=== PATIENT | female | born 1980 | race Caucasian/White ===

== ENCOUNTER 2017-12-31 09:46 | Inpatient (IN) | payer MEDICAID, SELFPAY ==
[2017-12-31] VITALS (13 sets, daily range): BP systolic 121–163; BP diastolic 74–118; PULSE 88–138; RESP 15–20; TEMP 36.7–37.5; O2SAT 95–99; BMI 25.6; BMI 25.7; BMI 25.3
--- NOTE | 2017-12-31 10:06 | CT_ITS ---
STUDY: CT BRAIN WITHOUT CONTRAST REASON FOR EXAM: Female, 37 years old. Seizure. Drug and alcohol withdrawal. RADIATION DOSAGE (If Supplied By Facility): CTDIvol = ( 44.99 ) mGy, DLP = ( 779.24 ) mGycm TECHNIQUE: Transaxial CT imaging of the brain was performed without administration of intravenous contrast material. Individualized dose optimization techniques were used for this CT. COMPARISON: None. FINDINGS: Normal soft tissue structures. Normal calvarium. Normal size ventricles and extra-axial spaces for the patient's age. Normal white matter tracts of the cerebral hemispheres. Normal basal ganglia and thalami. Normal brainstem. Normal cerebellum. There is no intracranial hemorrhage. There are no findings of an acute ischemic infarction. Normal visualized paranasal sinuses. CT/Brain/Head without Contrast IMPRESSION: Normal unenhanced CT scan of the brain. Electronically Signed: Geo Gates MD at 10:52 EDT , Service support ,
--- NOTE | 2017-12-31 10:09 | CT_ITS ---
STUDY: CT FACIAL BONES WITHOUT CONTRAST REASON FOR EXAM: Female, 37 years old. Seizure. Alcohol withdrawal RADIATION DOSAGE (If Supplied By Facility): CTDIvol = ( 29.38 ) mGy, DLP = ( 547.46 ) mGycm TECHNIQUE: The patient was scanned in a multi detector CT scanner. Sagittal and coronal images were reconstructed. Individualized dose optimization techniques were used for this CT. COMPARISON: None. FINDINGS: Normal soft tissue structures. Normal orbital blanco and orbital contents. There is angulation of the inferior aspect of the nasal bone with fracture, series 601 image 71/138. Normal zygomatic arches. Normal mandible. Normal facial bones. Follow-up mucosal thickening of the paranasal sinuses. CT/Sinus/Facial Bone IMPRESSION: Nasal fracture. Electronically Signed: Geo Gates MD at 11:00 EDT , Service support ,
--- NOTE | 2017-12-31 10:09 | EKG12_ITS ---
Test Reason : [facility] Blood Pressure : / mmHG Vent. Rate : 125 BPM Atrial Rate : 125 BPM P-R Int : 140 ms QRS Dur : 076 ms QT Int : 306 ms P-R-T Axes : 062 051 049 degrees QTc Int : 441 ms Sinus tachycardia Otherwise normal ECG Confirmed by MAVERICK BAUER MD ([id number]), scientific editor ESTELA CRAFT ([id number] on 01/03/2018 2:02:55 PM Referred By: KAYLYNN NAPIER Confirmed By:MAVERICK BAUER MD
--- NOTE | 2017-12-31 10:10 | ED.VISSUMM ---
- ER Visit Summary Date of Service: 12/31/17 Chief Complaint: Detox from alcohol and benzodiazepines History of Present Illness: The patient is a 37 F who is requesting detox from alcohol and benzodiazepines. Patient states she drinks 1 bottle of wine and 10 beers per day. Patient states she takes Valium 5 mg 4 times daily. Patient states her last use was 2 hours ago for both. Patient feels shaky. Patient has some nausea. Patient admits to subjective fevers at home. Patient states she has had a seizure 2-3 days ago. Patient states she has a history of seizures. Patient has been through detox several times in the past. Patient states her last detox was approximately 1 year ago. Patient also states she has fallen 3 days ago and hit her nose. She is concerned over possible nasal fracture. Physical Examination: Vital signs are stable except for an elevated blood pressure 163/118. Patient is in no acute distress. Patient is afebrile here. Pupils are equal, round, and reactive to light bilaterally. Extraocular muscles are intact. There is some edema and ecchymosis across the bridge of the nose. There is no bony crepitance or step-off noted. There is no septal deviation or septal hematoma noted. Oral mucosa is pink and moist. Heart was regular rate and rhythm. Lungs are clear and equal bilaterally. There is good respiratory effort noted. Abdomen is soft. There is some mild diffuse tenderness. There is no rebound or guarding noted. Cranial nerves II through XII are intact. There are no focal motor or sensory deficits noted. Test Results: CBC, comprehensive metabolic profile, and urinalysis were obtained and were within normal limits with the exception of a mildly elevated AST of 65. Serum alcohol level was 310. Urine tox screen was positive for benzodiazepines and cannabinoids. CT scan of the brain was obtained was negative. CT scan of the facial bones was obtained and shows a nondisplaced nasal bone fracture. EKG showed a sinus tachycardia with a rate of 125. There are no acute ST or T-wave changes noted. There are no prior EKGs available for comparison. Emergency Department Course and Treatment: Patient was given IV fluids here. Patient was given a dose of Tylenol and 2 doses of Phenergan. [facility] was contacted was supposed to come to the emergency department for evaluation. Case was also discussed with Dr. Frey. He will admit the patient to his service. Disposition: Admit to hospital Impression: Alcohol dependence Benzodiazepine dependence Nasal bone fracture This note was generated with [employer] dictation software. It may contain incorrect words, spelling, and punctuation that were not noted in review of the chart prior to signing ED Disposition - Plan for ED Patient: Disposition: Acute Care Hospital [facility] Chief Complaint: Subst Abuse Diagnosis: Alcohol dependence, Benzodiazepine dependence, Nasal bone fracture
--- NOTE | 2017-12-31 10:21 | ED.DCSUM_ITS ---
- ER Visit Summary Date of Service: 12/31/17 Chief Complaint: Detox from alcohol and benzodiazepines History of Present Illness: The patient is a 37 F who is requesting detox from alcohol and benzodiazepines. Patient states she drinks 1 bottle of wine and 10 beers per day. Patient states she takes Valium 5 mg 4 times daily. Patient states her last use was 2 hours ago for both. Patient feels shaky. Patient has some nausea. Patient admits to subjective fevers at home. Patient states she has had a seizure 2-3 days ago. Patient states she has a history of seizures. Patient has been through detox several times in the past. Patient states her last detox was approximately 1 year ago. Patient also states she has fallen 3 days ago and hit her nose. She is concerned over possible nasal fracture. Physical Examination: Vital signs are stable except for an elevated blood pressure 163/118. Patient is in no acute distress. Patient is afebrile here. Pupils are equal, round, and reactive to light bilaterally. Extraocular muscles are intact. There is some edema and ecchymosis across the bridge of the nose. There is no bony crepitance or step-off noted. There is no septal deviation or septal hematoma noted. Oral mucosa is pink and moist. Heart was regular rate and rhythm. Lungs are clear and equal bilaterally. There is good respiratory effort noted. Abdomen is soft. There is some mild diffuse tenderness. There is no rebound or guarding noted. Cranial nerves II through XII are intact. There are no focal motor or sensory deficits noted. Test Results: CBC, comprehensive metabolic profile, and urinalysis were obtained and were within normal limits with the exception of a mildly elevated AST of 65. Serum alcohol level was 310. Urine tox screen was positive for benzodiazepines and cannabinoids. CT scan of the brain was obtained was negative. CT scan of the facial bones was obtained and shows a nondisplaced nasal bone fracture. EKG showed a sinus tachycardia with a rate of 125. There are no acute ST or T-wave changes noted. There are no prior EKGs available for comparison. Emergency Department Course and Treatment: Patient was given IV fluids here. Patient was given a dose of Tylenol and 2 doses of Phenergan. [facility] was contacted was supposed to come to the emergency department for evaluation. Case was also discussed with Dr. Frey. He will admit the patient to his service. Disposition: Admit to hospital Impression: Alcohol dependence Benzodiazepine dependence Nasal bone fracture This note was generated with [employer] dictation software. It may contain incorrect words, spelling, and punctuation that were not noted in review of the chart prior to signing ED Disposition - Plan for ED Patient: Disposition: Acute Care Hospital [facility] Chief Complaint: Subst Abuse Diagnosis: Alcohol dependence, Benzodiazepine dependence, Nasal bone fracture
[2017-12-31] MEDS: proMETHazine 25 MG/ML Syringe 6.25 MG IV ×2 (10:23→10:54)
[2017-12-31] MEDS: 0.9% Normal Saline 1,000 ML 1000 ML IV (10:23)
[2017-12-31 10:31] LABS: Absolute Lymphocyte Count 1.68 X10^3/ul (0.83-4.51); Basophil# 0.08 X10^3/uL; Basophil% 1.9 % (0-1); Eosinophil# 0.08 X10^3/uL; Eosinophils% 1.9 % (0-5); Hematocrit 41.1 % (37-47); Hemoglobin 14.3 g/dl (12.0-15.0); Lymphocyte # 1.68 X10^3/ul (4.0); Lymphocyte % 39.1 % (19-41); Mean Corp Hgb Conc 34.8 g/gl (32-36); Mean Corpuscular Hgb 30.1 pg (27.0-32.0); Mean Corpuscular Volume 86.5 fL (81-99); Mean Platelet Vol. 9.3 fl (6.2-12.0); Monocyte# 0.46 X10^3/uL; Monocyte% 10.7 % (0-10); Neutrophil % 46.4 % (47-70); POSITIVE COUNT NO; POSITIVE DIFFERENTIAL NO; POSITIVE MORPHOLOGY NO; Platelet Count 322 K/mm3 (150-450); RBC Distribution Width CV 14.9 % (11.6-14.6); RBC Distribution Width SD 47.2 fl (35.1-43.9); Red Blood Count 4.75 M/mm3 (4.2-5.4); White Blood Count 4.3 K/mm3 (4.4-11.0)
[2017-12-31 10:46] LABS: ALB/GLOB Ratio 0.9 RATIO (0.9-2.4); AST(SGOT) 65 U/L (15-37); Alanine Aminotransfer ALT/SGPT 47 U/L (13-56); Albumin, Serum 4.2 g/dL (3.2-5.0); Alkaline Phosphatase 61 U/L (45-117); Anion Gap 14 (5-15); BUN 5 mg/dL (7-18); BUN/Creat Ratio 5.6 RATIO (10-20); Calcium,Total 8.7 mg/dL (8.5-10.1); Chloride 103 mmol/L (98-107); Creatinine, Serum 0.88 mg/dL (0.55-1.02); EST Glomerular Filtration Rate 76 mL/min (>60); Est Glom Filt Rate - Afr Amer 92 mL/min (>60); Estimated Creatinine Clearance 72.41 ml/min; Globulin 4.5 g/dL (2.2-4.2); Glucose 113 mg/dL (74-106); Protein, Total 8.7 g/dL (6.4-8.2); Sodium Level 139 mmol/L (136-145)
[2017-12-31 11:28] LABS: Squamous Epithelial Cells - UA 0 SEEN /hpf (5-10)
[2017-12-31 11:31] LABS: Color, Urine Yellow (Yellow); Glucose, Dipstick Normal (Normal); Ketone-Dipstick 15 mg/dl (Negative); Leukocyte Esterase-Dipstick 25 /ul (Negative); Nitrite-Dipstick Negative (Negative); Occult Blood-Urine 10 /ul (Negative); Protein-Dipstick 100 mg/dl (Negative); Specific Gravity, Urine 1.025 (1.002-1.030); Urine Bilirubin Dipstick Negative (Negative); Urine Clarity Sl. Cloudy (Clear); Urine Urobilinogen Normal (Normal)
[2017-12-31 11:32] LABS: Pregnancy, Serum, hCG Quali. NEGATIVE Negative (0-9 Nonpreg)
[2017-12-31 11:41] LABS: Bacteria 2+ /hpf (None Seen); Fine Granular Cast- Urine 5-10 SEEN /lpf (0-5); Mucous, Urine 1+ /hpf (<or=2+); Red Blood Cells-Urine 0-5 SEEN /hpf (0-5); White Blood Cells 0-5 SEEN /hpf (0-5)
[2017-12-31 11:56] LABS: Amphetamine Urine VISTA NEGATIVE (<1000 ng/mL); Barbiturate Urine VISTA NEGATIVE (< 200 ng/mL); Benzodiazepine Urine VISTA POSITIVE (< 200 ng/mL); Cocaine Urine VISTA NEGATIVE (< 300 ng/mL); Ecstacy Urine VISTA NEGATIVE (< 500 ng/mL); Methadone Urine VISTA NEGATIVE (< 300 ng/mL); PCP Urine VISTA NEGATIVE (< 25 ng/mL); THC Urine VISTA POSITIVE (< 50 ng/mL); Vista UDS pH Range 5
--- NOTE | 2017-12-31 14:18 | PCM.HP.STD ---
Problem List (1) Bipolar disorder Status: Chronic (2) Nasal fracture Status: Acute (3) Fall from alcohol Status: Acute (4) Seizure disorder Status: Chronic (5) Alcohol withdrawal delirium, acute, hyperactive Status: Acute (6) Benzodiazepine withdrawal with delirium Status: Acute History of Present Illness Date of Admission: 12/31/17 Chief Complaint: Alcohol and benzodiazepine withdrawal The patient is a 37 year old F with history of bipolar disorder, follows [facility] psychiatrist Dr. JEONG on prescribed Valium 5 mg 4 times daily and chronic alcoholic was brought into ER through [facility] for nausea, vomiting, severe anxiety and withdrawal and restlessness. Patient denies overdose of benzodiazepine. She denies suicidal ideation/attempt or thoughts. She drinks about 8-10 beers daily, a pint of bourbon, Vodka and bottle beer daily. She also has history of seizure, last one about a month ago. She has several that she is a heavy alcoholic. Today, she had bilious vomiting but denies any hematemesis or melena but had black stool about 3 weeks ago. Denies EGD/colonoscopy recently. She also had fall and bruise over the bridge of nose. CT had done in the ER shows normal but facial CT shows nasal fracture. Basic lab work shows alcohol 310, AST 65, hemoglobin 14.3, platelet count 222. [] Past Medical History Past Medical History (Chronic Problems): Chronic Problems Bipolar disorder (Chronic) Seizure disorder (Chronic) Allergies Penicillins Allergy (Verified 12/31/17 09:47) Anaphylaxis Home Medications: Ambulatory Orders Medication Instructions Recorded Diazepam [Valium] 5 mg PO 4X/DAY 12/31/17 Escitalopram Oxalate [Lexapro] 20 mg PO DAILY 12/31/17 Mirtazapine [Mirtazapine] 15 mg PO QHS PRN 12/31/17 Smoking Status: Never smoker Review of Systems Constitutional: Reports: Malaise, Weakness. Denies: Chills, Fever HEENT: Denies: Head Aches, Sinus Congestion, Sinus Drainage Cardiovascular: Denies: Chest Pain, Palpitations Respiratory: Denies: Cough, Shortness of breath at rest, Sputum production Gastrointestinal: Denies: Abdominal Pain, Nausea, Vomiting Genitourinary: Denies: Dysuria Musculoskeletal: Denies: Joint Pain, Joint Tenderness Skin: Denies: Rash, Wounds Neurological: Denies: Numbness, Tingling, Focal weakness Psychiatric: Reports: Anxiety, Depression. Denies: Homicidal Ideations, Suicidal Ideations Hematologic/ Lymphatic: Denies: Easy Bruising, Easy Bleeding VTE Information - Inpt Only VTE Present on Admission: No VTE Mechan Device Prophylaxis: SCD's VTE Pharm Prophylaxis ordered?: No Reason prophylaxis not ordered:: Procedure Not Indicated Patient Problems: Active and Suspected Problems Nasal fracture (Acute) Fall from alcohol (Acute) Alcohol withdrawal delirium, acute, hyperactive (Acute) Benzodiazepine withdrawal with delirium (Acute) Alcohol dependence (Acute) Benzodiazepine dependence (Acute) - Physical Exam General: Alert, Oriented x3, Cooperative HEENT: Atraumatic, PERRLA, EOMI, Normocephalic Oral: Dry Mucosa Neck: Supple, No JVD, Negative Carotid Bruits Lungs: Clear to auscultation, Normal air movement, No rhonchi, No wheeze, No rales Cardiovascular: Regular rate, Regular Rhythm, Normal S1, Normal S2, No murmurs Abdomen: Bowel Sounds Present, Soft, Non Tender, Non-Distended Extremities: No edema, Capillary Refill Less than 3 Seconds Skin: No rashes, No breakdown Musculoskeletal: No Tenderness to Palpation of Joints or Extremities Neurological: Cranial nerves II-XII grossly intact, Neuro grossly intact Psych/Mental Status: Anxious, Depressed, - - Tearful Vital Signs Temp Pulse Resp BP Pulse Ox 98.1 F 105 H 20 H 144/100 H 97 12/31/17 09:48 12/31/17 14:00 12/31/17 14:00 12/31/17 14:00 12/31/17 14:00 Oxygen Delivery Method Room Air Weight: 144 lb 13.499 oz Body Mass Index (BMI) 25.6 Laboratory Tests Past 24 Hrs 12/31/17 12/31/17 12/31/17 10:20 10:20 10:20 WBC 4.3 L RBC 4.75 Hgb 14.3 Hct 41.1 MCV 86.5 MCH 30.1 MCHC 34.8 RDW 14.9 H RDW Differential 47.2 H Plt Count 322 MPV 9.3 Immature Gran % (Auto) 0.000 Neut % (Auto) 46.4 L Lymph % (Auto) 39.1 [place] % (Auto) 10.7 H Eos % (Auto) 1.9 Baso % (Auto) 1.9 H Absolute Neuts (auto) 2.0 Absolute Lymphs (auto) 1.68 Total Counted Not Reportable Sodium 139 Potassium 4.0 Chloride 103 Carbon Dioxide 22.0 Anion Gap 14 BUN 5 L Creatinine 0.88 Estim Creat Clear Calc 72.41 Est GFR (MDRD) Af Amer 92 Est GFR (MDRD) Non-Af 76 BUN/Creatinine Ratio 5.6 L Glucose 113 H Calcium 8.7 Total Bilirubin 0.60 AST 65 H ALT 47 Alkaline Phosphatase 61 Troponin I < 0.02 Total Protein 8.7 H Albumin 4.2 Globulin 4.5 H Albumin/Globulin Ratio 0.9 Serum , Qual Urine Color Urine Clarity Urine pH Ur Specific [place] Urine Protein Urine Glucose (UA) Urine Ketones Urine Occult Blood Urine Nitrite Urine Bilirubin Urine Urobilinogen Ur Leukocyte Esterase Urine RBC Urine WBC Ur Squamous Epith Cells Urine Bacteria Fine Granular Casts Urine Mucus Urine Opiates Screen Urine Methadone Screen Ur Barbiturates Screen Ur Phencyclidine Scrn Ur Amphetamines Screen U Methamphetamin-MDMA U Benzodiazepines Scrn Urine Cocaine Screen U Cannabinoids Screen Ur Drug Screen Comment Ethyl Alcohol 310.0 H* 12/31/17 12/31/17 12/31/17 10:20 11:20 11:20 WBC RBC Hgb Hct MCV MCH MCHC RDW RDW Differential Plt Count MPV Immature Gran % (Auto) Neut % (Auto) Lymph % (Auto) [place] % (Auto) Eos % (Auto) Baso % (Auto) Absolute Neuts (auto) Absolute Lymphs (auto) Total Counted Sodium Potassium Chloride Carbon Dioxide Anion Gap BUN Creatinine Estim Creat Clear Calc Est GFR (MDRD) Af Amer Est GFR (MDRD) Non-Af BUN/Creatinine Ratio Glucose Calcium Total Bilirubin AST ALT Alkaline Phosphatase Troponin I Total Protein Albumin Globulin Albumin/Globulin Ratio Serum , Qual NEGATIVE Urine Color Yellow Urine Clarity Sl. Cloudy Urine pH 5.0 Ur Specific [place] 1.025 Urine Protein 100 H Urine Glucose (UA) Normal Urine Ketones 15 H Urine Occult Blood 10 H Urine Nitrite Negative Urine Bilirubin Negative Urine Urobilinogen Normal Ur Leukocyte Esterase 25 H Urine RBC 0-5 SEEN Urine WBC 0-5 SEEN Ur Squamous Epith Cells 0 SEEN Urine Bacteria 2+ Fine Granular Casts 5-10 SEEN Urine Mucus 1+ Urine Opiates Screen NEGATIVE Urine Methadone Screen NEGATIVE Ur Barbiturates Screen NEGATIVE Ur Phencyclidine Scrn NEGATIVE Ur Amphetamines Screen NEGATIVE U Methamphetamin-MDMA NEGATIVE U Benzodiazepines Scrn POSITIVE H Urine Cocaine Screen NEGATIVE U Cannabinoids Screen POSITIVE H Ur Drug Screen Comment Ethyl Alcohol Assessment/Plan Active and Suspected Problems Nasal fracture (Acute) Fall from alcohol (Acute) Alcohol withdrawal delirium, acute, hyperactive (Acute) Benzodiazepine withdrawal with delirium (Acute) Alcohol dependence (Acute) Benzodiazepine dependence (Acute) The patient is a 37 year old F with history of bipolar disorder, follows [facility] psychiatrist Dr. JEONG on prescribed Valium 5 mg 4 times daily and chronic alcoholic was brought into ER through [facility] program for nausea, vomiting, severe anxiety and withdrawal and restlessness. Patient denies overdose of benzodiazepine. She denies suicidal ideation/attempt or thoughts. She drinks about 8-10 beers daily, a pint of bourbon, Vodka and bottle beer daily. She also has history of seizure, last one about a month ago. She has several that she is a heavy alcoholic. Today, she had bilious vomiting but denies any hematemesis or melena but had black stool about 3 weeks ago. Denies EGD/colonoscopy recently. She also had fall and bruise over the bridge of nose. CT had done in the ER shows normal but facial CT shows nasal fracture. EKG shows sinus tachycardia at 125 bpm Basic lab work shows alcohol 310, AST 65, hemoglobin 14.3, platelet count 222. 1. Acute alcohol withdrawal with history of seizure probably alcohol-related: Patient is being admitted on [facility] with telemetry. Alcohol level is 310. IV fluid normal saline. Monitor intake and output. On medical stabilization for alcohol withdrawal and benzodiazepine as per [facility] protocol. On Librium scheduled dose and then taper. On IV Ativan as needed. On thiamine, multivitamin and folic acid. 2. On benzodiazepine possible acute alcohol withdrawal: As mentioned above she is on benzodiazepine medical stabilization protocol. 3. Anxiety and depression: She denies suicidal ideation/thought. She denies overdose of Valium. 4. Alcoholic hepatitis with chronic alcohol use: AST is 65. ALT normal. On IV Protonix 40 mg twice daily. Serum lipase and amylase are normal. right upper quadrant sonogram to look for chronic signs of alcohol use rule out cirrhosis or other changes of portal hypertension. 5. Fall with nasal fracture: Able. No respiratory distress. ENT consult tomorrow. DVT prophylaxis: Low risk on bilateral SCDs Laboratory Results 12/31/17 10:20: WBC 4.3 L, RBC 4.75, Hgb 14.3, Hct 41.1, MCV 86.5, MCH 30.1, MCHC 34.8, RDW 14.9 H, RDW Differential 47.2 H, Plt Count 322, MPV 9.3, Immature Gran % (Auto) 0.000, Neut % (Auto) 46.4 L, Lymph % (Auto) 39.1, [place] % (Auto) 10.7 H, Eos % (Auto) 1.9, Baso % (Auto) 1.9 H, Absolute Neuts (auto) 2.0, Absolute Lymphs (auto) 1.68, Total Counted Not Reportable 12/31/17 10:20: Sodium 139, Potassium 4.0, Chloride 103, Carbon Dioxide 22.0, Anion Gap 14, BUN 5 L, Creatinine 0.88, Estim Creat Clear Calc 72.41, Est GFR (MDRD) Af Amer 92, Est GFR (MDRD) Non-Af 76, BUN/Creatinine Ratio 5.6 L, Glucose 113 H, Calcium 8.7, Total Bilirubin 0.60, AST 65 H, ALT 47, Alkaline Phosphatase 61, Troponin I < 0.02, Total Protein 8.7 H, Albumin 4.2, Globulin 4.5 H, Albumin/Globulin Ratio 0.9 12/31/17 10:20: Ethyl Alcohol 310.0 H* 12/31/17 10:20: Serum , Qual NEGATIVE 12/31/17 11:20: Urine Color Yellow, Urine Clarity Sl. Cloudy, Urine pH 5.0, Ur Specific [place] 1.025, Urine Protein 100 H, Urine Glucose (UA) Normal, Urine Ketones 15 H, Urine Occult Blood 10 H, Urine Nitrite Negative, Urine Bilirubin Negative, Urine Urobilinogen Normal, Ur Leukocyte Esterase 25 H, Urine RBC 0-5 SEEN, Urine WBC 0-5 SEEN, Ur Squamous Epith Cells 0 SEEN, Urine Bacteria 2+, Fine Granular Casts 5-10 SEEN, Urine Mucus 1+ 12/31/17 11:20: Urine Opiates Screen NEGATIVE, Urine Methadone Screen NEGATIVE, Ur Barbiturates Screen NEGATIVE, Ur Phencyclidine Scrn NEGATIVE, Ur Amphetamines Screen NEGATIVE, U Methamphetamin-MDMA NEGATIVE, U Benzodiazepines Scrn POSITIVE H, Urine Cocaine Screen NEGATIVE, U Cannabinoids Screen POSITIVE H, Ur Drug Screen Comment Clinical Impression(s) from Imaging Studies Brain CT 12/31/17 10:06 IMPRESSION: Normal unenhanced CT scan of the brain. Electronically Signed: Geo Gates MD at 10:52 EDT , Service support , Facial/Sinus 12/31/17 10:09 IMPRESSION: Nasal fracture. This note was generated with [employer] dictation software. Every effort was made to ensure accuracy, however computerized preparation operator mistakes may persist. Code Visit Inpatient E&M: 62369 Init Hosp L3
--- NOTE | 2017-12-31 14:24 | HP.PCM_ITS ---
Problem List (1) Bipolar disorder Status: Chronic (2) Nasal fracture Status: Acute (3) Fall from alcohol Status: Acute (4) Seizure disorder Status: Chronic (5) Alcohol withdrawal delirium, acute, hyperactive Status: Acute (6) Benzodiazepine withdrawal with delirium Status: Acute History of Present Illness Date of Admission: 12/31/17 Chief Complaint: Alcohol and benzodiazepine withdrawal The patient is a 37 year old F with history of bipolar disorder, follows [facility] psychiatrist Dr. JEONG on prescribed Valium 5 mg 4 times daily and chronic alcoholic was brought into ER through [facility] for nausea, vomiting, severe anxiety and withdrawal and restlessness. Patient denies overdose of benzodiazepine. She denies suicidal ideation/attempt or thoughts. She drinks about 8-10 beers daily, a pint of bourbon, Vodka and bottle beer daily. She also has history of seizure, last one about a month ago. She has several that she is a heavy alcoholic. Today, she had bilious vomiting but denies any hematemesis or melena but had black stool about 3 weeks ago. Denies EGD/colonoscopy recently. She also had fall and bruise over the bridge of nose. CT had done in the ER shows normal but facial CT shows nasal fracture. Basic lab work shows alcohol 310, AST 65, hemoglobin 14.3, platelet count 222. [] Past Medical History Past Medical History (Chronic Problems): Chronic Problems Bipolar disorder (Chronic) Seizure disorder (Chronic) Allergies Penicillins Allergy (Verified 12/31/17 09:47) Anaphylaxis Home Medications: Ambulatory Orders Medication Instructions Recorded Diazepam [Valium] 5 mg PO 4X/DAY 12/31/17 Escitalopram Oxalate [Lexapro] 20 mg PO DAILY 12/31/17 Mirtazapine [Mirtazapine] 15 mg PO QHS PRN 12/31/17 Smoking Status: Never smoker Review of Systems Constitutional: Reports: Malaise, Weakness. Denies: Chills, Fever HEENT: Denies: Head Aches, Sinus Congestion, Sinus Drainage Cardiovascular: Denies: Chest Pain, Palpitations Respiratory: Denies: Cough, Shortness of breath at rest, Sputum production Gastrointestinal: Denies: Abdominal Pain, Nausea, Vomiting Genitourinary: Denies: Dysuria Musculoskeletal: Denies: Joint Pain, Joint Tenderness Skin: Denies: Rash, Wounds Neurological: Denies: Numbness, Tingling, Focal weakness Psychiatric: Reports: Anxiety, Depression. Denies: Homicidal Ideations, Suicidal Ideations Hematologic/ Lymphatic: Denies: Easy Bruising, Easy Bleeding VTE Information - Inpt Only VTE Present on Admission: No VTE Mechan Device Prophylaxis: SCD's VTE Pharm Prophylaxis ordered?: No Reason prophylaxis not ordered:: Procedure Not Indicated Patient Problems: Active and Suspected Problems Nasal fracture (Acute) Fall from alcohol (Acute) Alcohol withdrawal delirium, acute, hyperactive (Acute) Benzodiazepine withdrawal with delirium (Acute) Alcohol dependence (Acute) Benzodiazepine dependence (Acute) - Physical Exam General: Alert, Oriented x3, Cooperative HEENT: Atraumatic, PERRLA, EOMI, Normocephalic Oral: Dry Mucosa Neck: Supple, No JVD, Negative Carotid Bruits Lungs: Clear to auscultation, Normal air movement, No rhonchi, No wheeze, No rales Cardiovascular: Regular rate, Regular Rhythm, Normal S1, Normal S2, No murmurs Abdomen: Bowel Sounds Present, Soft, Non Tender, Non-Distended Extremities: No edema, Capillary Refill Less than 3 Seconds Skin: No rashes, No breakdown Musculoskeletal: No Tenderness to Palpation of Joints or Extremities Neurological: Cranial nerves II-XII grossly intact, Neuro grossly intact Psych/Mental Status: Anxious, Depressed, - - Tearful Vital Signs Temp Pulse Resp BP Pulse Ox 98.1 F 105 H 20 H 144/100 H 97 12/31/17 09:48 12/31/17 14:00 12/31/17 14:00 12/31/17 14:00 12/31/17 14:00 Oxygen Delivery Method Room Air Weight: 144 lb 13.499 oz Body Mass Index (BMI) 25.6 Laboratory Tests Past 24 Hrs 12/31/17 12/31/17 12/31/17 10:20 10:20 10:20 WBC 4.3 L RBC 4.75 Hgb 14.3 Hct 41.1 MCV 86.5 MCH 30.1 MCHC 34.8 RDW 14.9 H RDW Differential 47.2 H Plt Count 322 MPV 9.3 Immature Gran % (Auto) 0.000 Neut % (Auto) 46.4 L Lymph % (Auto) 39.1 [place] % (Auto) 10.7 H Eos % (Auto) 1.9 Baso % (Auto) 1.9 H Absolute Neuts (auto) 2.0 Absolute Lymphs (auto) 1.68 Total Counted Not Reportable Sodium 139 Potassium 4.0 Chloride 103 Carbon Dioxide 22.0 Anion Gap 14 BUN 5 L Creatinine 0.88 Estim Creat Clear Calc 72.41 Est GFR (MDRD) Af Amer 92 Est GFR (MDRD) Non-Af 76 BUN/Creatinine Ratio 5.6 L Glucose 113 H Calcium 8.7 Total Bilirubin 0.60 AST 65 H ALT 47 Alkaline Phosphatase 61 Troponin I < 0.02 Total Protein 8.7 H Albumin 4.2 Globulin 4.5 H Albumin/Globulin Ratio 0.9 Serum , Qual Urine Color Urine Clarity Urine pH Ur Specific [place] Urine Protein Urine Glucose (UA) Urine Ketones Urine Occult Blood Urine Nitrite Urine Bilirubin Urine Urobilinogen Ur Leukocyte Esterase Urine RBC Urine WBC Ur Squamous Epith Cells Urine Bacteria Fine Granular Casts Urine Mucus Urine Opiates Screen Urine Methadone Screen Ur Barbiturates Screen Ur Phencyclidine Scrn Ur Amphetamines Screen U Methamphetamin-MDMA U Benzodiazepines Scrn Urine Cocaine Screen U Cannabinoids Screen Ur Drug Screen Comment Ethyl Alcohol 310.0 H* 12/31/17 12/31/17 12/31/17 10:20 11:20 11:20 WBC RBC Hgb Hct MCV MCH MCHC RDW RDW Differential Plt Count MPV Immature Gran % (Auto) Neut % (Auto) Lymph % (Auto) [place] % (Auto) Eos % (Auto) Baso % (Auto) Absolute Neuts (auto) Absolute Lymphs (auto) Total Counted Sodium Potassium Chloride Carbon Dioxide Anion Gap BUN Creatinine Estim Creat Clear Calc Est GFR (MDRD) Af Amer Est GFR (MDRD) Non-Af BUN/Creatinine Ratio Glucose Calcium Total Bilirubin AST ALT Alkaline Phosphatase Troponin I Total Protein Albumin Globulin Albumin/Globulin Ratio Serum , Qual NEGATIVE Urine Color Yellow Urine Clarity Sl. Cloudy Urine pH 5.0 Ur Specific [place] 1.025 Urine Protein 100 H Urine Glucose (UA) Normal Urine Ketones 15 H Urine Occult Blood 10 H Urine Nitrite Negative Urine Bilirubin Negative Urine Urobilinogen Normal Ur Leukocyte Esterase 25 H Urine RBC 0-5 SEEN Urine WBC 0-5 SEEN Ur Squamous Epith Cells 0 SEEN Urine Bacteria 2+ Fine Granular Casts 5-10 SEEN Urine Mucus 1+ Urine Opiates Screen NEGATIVE Urine Methadone Screen NEGATIVE Ur Barbiturates Screen NEGATIVE Ur Phencyclidine Scrn NEGATIVE Ur Amphetamines Screen NEGATIVE U Methamphetamin-MDMA NEGATIVE U Benzodiazepines Scrn POSITIVE H Urine Cocaine Screen NEGATIVE U Cannabinoids Screen POSITIVE H Ur Drug Screen Comment Ethyl Alcohol Assessment/Plan Active and Suspected Problems Nasal fracture (Acute) Fall from alcohol (Acute) Alcohol withdrawal delirium, acute, hyperactive (Acute) Benzodiazepine withdrawal with delirium (Acute) Alcohol dependence (Acute) Benzodiazepine dependence (Acute) The patient is a 37 year old F with history of bipolar disorder, follows [facility] psychiatrist Dr. JEONG on prescribed Valium 5 mg 4 times daily and chronic alcoholic was brought into ER through [facility] for nausea, vomiting, severe anxiety and withdrawal and restlessness. Patient denies overdose of benzodiazepine. She denies suicidal ideation/attempt or thoughts. She drinks about 8-10 beers daily, a pint of bourbon, Vodka and bottle beer daily. She also has history of seizure, last one about a month ago. She has several that she is a heavy alcoholic. Today, she had bilious vomiting but denies any hematemesis or melena but had black stool about 3 weeks ago. Denies EGD/colonoscopy recently. She also had fall and bruise over the bridge of nose. CT had done in the ER shows normal but facial CT shows nasal fracture. EKG shows sinus tachycardia at 125 bpm Basic lab work shows alcohol 310, AST 65, hemoglobin 14.3, platelet count 222. 1. Acute alcohol withdrawal with history of seizure probably alcohol-related: Patient is being admitted on [facility] with telemetry. Alcohol level is 310. IV fluid normal saline. Monitor intake and output. On medical stabilization for alcohol withdrawal and benzodiazepine as per [facility] protocol. On Librium scheduled dose and then taper. On IV Ativan as needed. On thiamine, multivitamin and folic acid. 2. On benzodiazepine possible acute alcohol withdrawal: As mentioned above she is on benzodiazepine medical stabilization protocol. 3. Anxiety and depression: She denies suicidal ideation/thought. She denies overdose of Valium. 4. Alcoholic hepatitis with chronic alcohol use: AST is 65. ALT normal. On IV Protonix 40 mg twice daily. Serum lipase and amylase are normal. right upper quadrant sonogram to look for chronic signs of alcohol use rule out cirrhosis or other changes of portal hypertension. 5. Fall with nasal fracture: Able. No respiratory distress. ENT consult tomorrow. DVT prophylaxis: Low risk on bilateral SCDs Laboratory Results 12/31/17 10:20: WBC 4.3 L, RBC 4.75, Hgb 14.3, Hct 41.1, MCV 86.5, MCH 30.1, MCHC 34.8, RDW 14.9 H, RDW Differential 47.2 H, Plt Count 322, MPV 9.3, Immature Gran % (Auto) 0.000, Neut % (Auto) 46.4 L, Lymph % (Auto) 39.1, [place] % (Auto) 10.7 H, Eos % (Auto) 1.9, Baso % (Auto) 1.9 H, Absolute Neuts (auto) 2.0 , Absolute Lymphs (auto) 1.68, Total Counted Not Reportable 12/31/17 10:20: Sodium 139, Potassium 4.0, Chloride 103, Carbon Dioxide 22.0, Anion Gap 14, BUN 5 L, Creatinine 0.88, Estim Creat Clear Calc 72.41, Est GFR ( MDRD) Af Amer 92, Est GFR (MDRD) Non-Af 76, BUN/Creatinine Ratio 5.6 L, Glucose 113 H, Calcium 8.7, Total Bilirubin 0.60, AST 65 H, ALT 47, Alkaline Phosphatase 61, Troponin I < 0.02, Total Protein 8.7 H, Albumin 4.2, Globulin 4.5 H, Albumin/Globulin Ratio 0.9 12/31/17 10:20: Ethyl Alcohol 310.0 H* 12/31/17 10:20: Serum , Qual NEGATIVE 12/31/17 11:20: Urine Color Yellow, Urine Clarity Sl. Cloudy, Urine pH 5.0, Ur Specific [place] 1.025, Urine Protein 100 H, Urine Glucose (UA) Normal, Urine Ketones 15 H, Urine Occult Blood 10 H, Urine Nitrite Negative, Urine Bilirubin Negative, Urine Urobilinogen Normal, Ur Leukocyte Esterase 25 H, Urine RBC 0-5 SEEN, Urine WBC 0-5 SEEN, Ur Squamous Epith Cells 0 SEEN, Urine Bacteria 2+, Fine Granular Casts 5-10 SEEN, Urine Mucus 1+ 12/31/17 11:20: Urine Opiates Screen NEGATIVE, Urine Methadone Screen NEGATIVE, Ur Barbiturates Screen NEGATIVE, Ur Phencyclidine Scrn NEGATIVE, Ur Amphetamines Screen NEGATIVE, U Methamphetamin-MDMA NEGATIVE, U Benzodiazepines Scrn POSITIVE H, Urine Cocaine Screen NEGATIVE, U Cannabinoids Screen POSITIVE H , Ur Drug Screen Comment Clinical Impression(s) from Imaging Studies Brain CT 12/31/17 10:06 IMPRESSION: Normal unenhanced CT scan of the brain. Electronically Signed: Geo Gates MD at 10:52 EDT , Service support , Facial/Sinus 12/31/17 10:09 IMPRESSION: Nasal fracture. This note was generated with Apprion dictation software. Every effort was made to ensure accuracy, however computerized director of institutional research mistakes may persist. Code Visit Inpatient E&M: 61475 Init Hosp L3
--- NOTE | 2017-12-31 14:41 | NURSING ---
Pt reports she does not know dosage of bystolic and that she has had it filled at [facility]'s pharmacy in [place]. Pharmacy called and there is no record of it.
[2017-12-31] MEDS: hydrOXYzine PAM 25 MG Capsule 50 MG PO (16:14)
[2017-12-31] MEDS: chlordiazePOXIDE 25 MG Capsule PO ×2 (16:14→21:04)
[2017-12-31] MEDS: Dicyclomine 10 MG Capsule 20 MG PO (16:14)
[2017-12-31 16:18] LABS: Amylase 80 U/L (25-115); Lipase 393 U/L (73-393)
[2017-12-31] MEDS: Ondansetron ODT 4 MG Tablet PO (16:18)
[2017-12-31] MEDS: 0.9% NaCl Peripheral Flush Adult/Peds IV (16:19)
[2017-12-31] MEDS: Lactated Ringers 1,000 ML 125 ML IV (16:30)
[2017-12-31] MEDS: cloNIDine HCl 0.1 MG Tablet PO ×2 (18:36→21:04)
[2017-12-31] MEDS: QUEtiapine 25 MG Tablet PO (18:36)
[2017-12-31] MEDS: Pramipexole Di-HCl 0.25 MG Tablet PO (18:37)
[2017-12-31 19:47] LABS: International Normalized Ratio 1.1; Prothrombin Time (Protime)PT. 13.7 SECONDS (11.7-14.9)
--- NOTE | 2017-12-31 20:52 | NURSING ---
Called CPS at the request of Rima THAKUR since pt is c/o chest pain.
--- NOTE | 2017-12-31 20:53 | EKG12_ITS ---
Test Reason : CP Blood Pressure : / mmHG Vent. Rate : 100 BPM Atrial Rate : 100 BPM P-R Int : 134 ms QRS Dur : 084 ms QT Int : 394 ms P-R-T Axes : 019 047 044 degrees QTc Int : 508 ms Normal sinus rhythm Prolonged QT Abnormal ECG When compared with ECG of 31-DEC-2017 09:57, MANUAL COMPARISON REQUIRED, DATA IS UNCONFIRMED Confirmed by LIZETTE NO, MAVERICK ([id number]), international editorial producer ESTELA CRAFT ([id number]) on 01/11/2018 2:09:18 PM Referred By: OCTAVIA Confirmed By:MAVERICK BAUER MD
[2017-12-31] MEDS: Methocarbamol 750 MG Tablet PO (21:04)
[2017-12-31] MEDS: Ibuprofen 600 MG Tablet PO (21:04)
[2017-12-31] MEDS: traZODone 50 MG Tablet PO (21:04)
[2017-12-31] MEDS: Ketorolac 15 MG/ML Vial IV (21:39)
[2018-01-01] VITALS (20 sets, daily range): BP systolic 126–139; BP diastolic 74–96; PULSE 56–95; RESP 12–20; TEMP 36.5–37.4; O2SAT 98–100
[2018-01-01] MEDS: Dicyclomine 10 MG Capsule 20 MG PO ×4 (01:42→21:35)
[2018-01-01] MEDS: Ondansetron ODT 4 MG Tablet PO (01:42)
[2018-01-01] MEDS: Mag Hydrox/Al Hydrox/Simeth 30 ML UDC PO (01:42)
[2018-01-01] MEDS: QUEtiapine 25 MG Tablet PO ×4 (01:43→23:40)
[2018-01-01] MEDS: cloNIDine HCl 0.1 MG Tablet PO ×4 (01:43→21:35)
[2018-01-01] MEDS: hydrOXYzine PAM 25 MG Capsule 50 MG PO ×3 (03:16→19:59)
[2018-01-01] MEDS: Methocarbamol 750 MG Tablet PO ×3 (03:16→23:40)
[2018-01-01] MEDS: chlordiazePOXIDE 25 MG Capsule PO ×3 (03:16→17:54)
[2018-01-01] MEDS: Ketorolac 15 MG/ML Vial IV (05:38)
--- NOTE | 2018-01-01 05:55 | US_ITS ---
STUDY: ABDOMINAL ULTRASOUND - RIGHT UPPER QUADRANT REASON FOR VISIT: Female, 37 years old. Right upper quadrant pain. TECHNIQUE: Ultrasound evaluation of the right upper quadrant was performed with real-time and static lilly-scale imaging. TECHNICAL QUALITY: Adequate. COMPARISON: None. FINDINGS: Liver: The liver measures 14 cm. There is normal echogenicity of the liver. The bile ducts are within normal limits. There is hepatic color flow. The direction of portal flow is hepatopetal. There is no demonstrated mass lesion. Gallbladder: Normal distended gallbladder. The gallbladder wall measures 2 mm. There is a negative sonographic Jara's sign. There is no pericholecystic fluid. There are no gallstones. Common Bile Duct (C.B.D.): The common bile duct measures 4 mm. Pancreas: Normal size of the head, body and tail of the pancreas. There is normal echogenicity of the pancreas. There is no demonstrated pancreatic mass or cyst. Right Kidney: Normal size of the right kidney. The right kidney measures 9.6 x 4.2 x 4.3 cm. Normal renal cortex. The right cortex measures 1.3 cm. There is no demonstrated renal mass or cyst. There is no right hydronephrosis. US/Abdomen Limited IMPRESSION: Normal right upper quadrant ultrasound examination. Electronically Signed: Devyn Greenberg MD at 10:01 EDT Tel , Service support ,
[2018-01-01] MEDS: Pramipexole Di-HCl 0.25 MG Tablet PO ×2 (07:55→23:40)
[2018-01-01] MEDS: Thiamine Hydrochloride 100 MG Tablet PO (07:56)
[2018-01-01] MEDS: Folic Acid 1 MG Tablet PO (07:56)
[2018-01-01] MEDS: Multivitamins,Ther W-Minerals Tablet 1 TABLET PO (07:57)
[2018-01-01 09:05] LABS: Absolute Lymphocyte Count 1.29 X10^3/ul (0.83-4.51); Absolute Neutrophil Count 2.4 X10^3/uL (2.0-7.7); Basophil# 0.05 X10^3/uL; Basophil% 1.2 % (0-1); Eosinophil# 0.14 X10^3/uL; Eosinophils% 3.3 % (0-5); Hematocrit 31.4 % (37-47); Hemoglobin 10.4 g/dl (12.0-15.0); Lymphocyte # 1.29 X10^3/ul (4.0); Lymphocyte % 30.5 % (19-41); Mean Corp Hgb Conc 33.1 g/gl (32-36); Mean Corpuscular Hgb 29.6 pg (27.0-32.0); Mean Corpuscular Volume 89.5 fL (81-99); Mean Platelet Vol. 9.4 fl (6.2-12.0); Monocyte# 0.36 X10^3/uL; Monocyte% 8.5 % (0-10); Neutrophil # 2.38 X10^3/uL (2.7-7.7); Neutrophil % 56.3 % (47-70); POSITIVE COUNT NO; POSITIVE DIFFERENTIAL NO; POSITIVE MORPHOLOGY NO; Platelet Count 213 K/mm3 (150-450); RBC Distribution Width CV 14.7 % (11.6-14.6); RBC Distribution Width SD 46.6 fl (35.1-43.9); Red Blood Count 3.51 M/mm3 (4.2-5.4); White Blood Count 4.2 K/mm3 (4.4-11.0)
[2018-01-01 09:30] LABS: Anion Gap 7 (5-15); BUN 6 mg/dL (7-18); BUN/Creat Ratio 8.7 RATIO (10-20); Calcium,Total 7.3 mg/dL (8.5-10.1); Chloride 105 mmol/L (98-107); Creatinine, Serum 0.69 mg/dL (0.55-1.02); EST Glomerular Filtration Rate 101 mL/min (>60); Est Glom Filt Rate - Afr Amer 123 mL/min (>60); Estimated Creatinine Clearance 92.34 ml/min; Glucose 112 mg/dL (74-106); Magnesium 1.9 mg/dL (1.6-2.6); Potassium 3.3 mmol/L (3.5-5.1); Sodium Level 137 mmol/L (136-145)
--- NOTE | 2018-01-01 09:46 | PCM.PN.HOSP ---
Patient Problems: Active and Suspected Problems Nasal fracture (Acute) Fall from alcohol (Acute) Alcohol withdrawal delirium, acute, hyperactive (Acute) Benzodiazepine withdrawal with delirium (Acute) Alcohol dependence (Acute) Benzodiazepine dependence (Acute) Subjective: The patient is a 37 year old F with history of bipolar disorder and history of alcohol abuse was admitted via the ED on 12/31/2017 with a complaint of nausea, vomiting, severe anxiety, restlessness and alcohol withdrawal. She has been prescribed Valium 5 mg 4 times daily by her psychiatrist and [place]. She was mixing this with alcohol. She drinks about 8-10 beers daily with a complaint of Jesus, vodka and beer as well. She was admitted to the [facility] program for alcoholic detox. She has a history of seizure with the last one being about a month prior to admission. CT done in the ED showed a nasal fracture and alcohol level was 310, amylase and lipase were within normal limits. Platelets was 222. She is being managed for alcoholic withdrawal and [facility] base protocol. ENT has been consulted and account of nasal fracture. Patient seen and examined this morning. She complains of severe pain over the bridge of her nose due to nasal fracture. She also complains of one episode of emesis last night which was coffee-ground in nature. She did not have any melena stools but does report a history of melena stools in the past. She denies having any recent EGD or colonoscopy and denies any history of NSAID abuse. She has never been told she has a peptic ulcer. She also complains of severe abdominal pain and says is mainly in the upper abdomen. She denies any fever or chills, any chest pain, or any diarrhea. Review of systems otherwise negative. Vitals/I&O's: Vital Signs Temp Pulse Resp BP Pulse Ox 98.5 F 81 16 139/90 H 99 01/01/18 07:55 01/01/18 07:59 01/01/18 07:55 01/01/18 07:55 01/01/18 07:55 Oxygen Delivery Method Room Air Weight: 142 lb 14.4 oz Body Mass Index (BMI) 25.3 Intake and Output for Last 24 Hours 12/30/17 12/31/17 01/01/18 23:59 23:59 23:59 Intake Total 365 / 365 2267 / 2267 Balance 365 / 365 2267 / 2267 General: Alert, Oriented x3, Cooperative, - - Agitated HEENT: PERRLA, EOMI, Normocephalic, - - Has resolving bruise across the bridge of her nose. Oral: Moist Mucosa Neck: Supple, No JVD, Negative Carotid Bruits Lungs: Clear to auscultation, Normal air movement Cardiovascular: Regular rate, Regular Rhythm, Normal S1, Normal S2, No murmurs Abdomen: Bowel Sounds Present, Soft, Non-Distended, No Hepato-splenomegaly, - - Has moderate epigastric and right upper quadrant tenderness, with no guarding or rebound tenderness. Jara sign was negative. Extremities: No edema, Capillary Refill Less than 3 Seconds Skin: No rashes, No breakdown Musculoskeletal: No Tenderness to Palpation of Joints or Extremities Lymphatic: No Cervical, Supraclavicular, or Inguinal Adenopathy Neurological: Cranial nerves II-XII grossly intact, Motor Exam 5/5 strength throughout Psych/Mental Status: Agitated, Anxious, Alert and oriented to time, place, person, mood and affect Laboratory Results 12/31/17 15:28: Amylase 80, Lipase 393 12/31/17 19:17: PT 13.7, INR 1.1 12/31/17 21:28: Troponin I < 0.02 01/01/18 06:31: Ethyl Alcohol 8.0 01/01/18 08:44: WBC 4.2 L, RBC 3.51 L, Hgb 10.4 L, Hct 31.4 L, MCV 89.5, MCH 29.6, MCHC 33.1, RDW 14.7 H, RDW Differential 46.6 H, Plt Count 213, MPV 9.4, Immature Gran % (Auto) 0.200, Neut % (Auto) 56.3, Lymph % (Auto) 30.5, Jack % (Auto) 8.5, Eos % (Auto) 3.3, Baso % (Auto) 1.2 H, Absolute Neuts (auto) 2.4, Absolute Lymphs (auto) 1.29, Total Counted Not Reportable 01/01/18 08:44: Sodium 137, Potassium 3.3 L, Chloride 105, Carbon Dioxide 25.0, Anion Gap 7, BUN 6 L, Creatinine 0.69, Estim Creat Clear Calc 92.34, Est GFR (MDRD) Af Amer 123, Est GFR (MDRD) Non-Af 101, BUN/Creatinine Ratio 8.7 L, Glucose 112 H, Calcium 7.3 L, Magnesium 1.9 Current Medications Al Hydroxide/Mg Hydroxide (Mylanta Ii) 30 ml PO Q6H PRN PRN PRN Reason: dyspesia Last Admin: 01/01/18 01:42 Dose: 30 ml Bisacodyl (Dulcolax) 10 mg RECTAL DAILY PRN PRN Reason: Constipation Chlordiazepoxide (Librium) 50 mg PO Q6H BLESSING PRN Reason: Taper Stop: 01/03/18 17:59 Last Admin: 01/01/18 03:16 Dose: 50 mg Clonidine (Catapres) 0.1 mg PO Q4 [facility] Last Admin: 01/01/18 05:38 Dose: 0.1 mg Dicyclomine HCl (Bentyl) 20 mg PO Q6H PRN PRN PRN Reason: abdominal discomfort Last Admin: 01/01/18 08:00 Dose: 20 mg Folic Acid (Folic Acid) 1 mg PO DAILY@0800 [facility] Last Admin: 01/01/18 07:56 Dose: 1 mg Hydroxyzine Pamoate (Vistaril Pamoate Capsule) 50 mg PO Q6H PRN PRN PRN Reason: Mild Anxiety (score 1/3) Last Admin: 01/01/18 03:16 Dose: 50 mg Potassium Chloride/Sodium Chloride () 1,000 mls @ 150 mls/hr IV .Q6H40M [facility] Last Admin: 01/01/18 08:03 Dose: 150 mls/hr Pantoprazole Sodium 40 mg/ (Sodium Chloride) 110 mls @ 330 mls/hr IV Q12 [facility] Last Admin: 12/31/17 21:27 Dose: 330 mls/hr Ketorolac Tromethamine (Toradol) 15 mg IV Q8 [facility] Stop: 01/05/18 14:01 Last Admin: 01/01/18 05:38 Dose: 15 mg Loperamide HCl (Imodium) 2 - 4 mg PO UD PRN PRN Reason: LOOSE STOOLS Methocarbamol (Methocarbamol) 750 mg PO Q6H PRN PRN PRN Reason: Muscle Aches Last Admin: 01/01/18 03:16 Dose: 750 mg Multivitamins/Minerals ([facility]ivitamin With Minerals) [facility] Last Admin: 01/01/18 07:57 Dose: 1 tablet Nicotine (Nicoderm Cq (Pbkc)) 21 mg TRANSDERM. DAILY [facility] Last Admin: 12/31/17 16:38 Dose: Not Given Nutritional Formula (Lactose Free) (Ensure Enlive) 120 ml PO 4X/DAY [facility] Last Admin: 01/01/18 09:16 Dose: Not Given Ondansetron HCl (Zofran Odt) 4 mg PO Q6H PRN PRN PRN Reason: NAUSEA Last Admin: 01/01/18 01:42 Dose: 4 mg Pramipexole Dihydrochloride (Mirapex) 0.25 mg PO Q12H PRN PRN PRN Reason: Restless legs Last Admin: 01/01/18 07:55 Dose: 0.25 mg Quetiapine Fumarate (Seroquel) 25 mg PO Q6H PRN PRN PRN Reason: Moderate Anxiety (score 2/3) Last Admin: 01/01/18 07:55 Dose: 25 mg Senna (Senokot) 1 tablet PO QHS PRN PRN PRN Reason: Constipation Sodium Chloride () 5 - 30 ml IV UD PRN PRN Reason: SALINE FLUSH Last Admin: 12/31/17 16:19 Dose: 10 ml Thiamine HCl (Vitamin B1) [facility] Last Admin: 01/01/18 07:56 Dose: 100 mg Trazodone HCl (Desyrel) 50 mg PO QHS [facility] Last Admin: 12/31/17 21:04 Dose: 50 mg Medical Necessity - Tobacco Use Smoking Status: Never smoker Assessment/Plan Active and Suspected Problems Nasal fracture (Acute) Fall from alcohol (Acute) Alcohol withdrawal delirium, acute, hyperactive (Acute) Benzodiazepine withdrawal with delirium (Acute) Alcohol dependence (Acute) Benzodiazepine dependence (Acute) Patient is a 37-year-old female with a history of alcohol abuse and bipolar disorder who was admitted through the [facility] for alcohol withdrawal. She is on alcohol withdrawal protocol per [facility] protocol. Amylase and lipase were within normal limits. 1. Acute alcohol withdrawal and possible benzodiazepine withdrawal CIWA score today is 11 Still feels anxious. On alcohol withdrawal protocol with Librium. Will continue. We will continue monitoring CIWA score. On multivitamin, folic acid and thiamine. 2. UGI bleed possibly due to PUDx vs alcoholic gastritis had episode of coffee-ground emesis overnight. Also complains of history of melena stools. Never had an EGD or colonoscopy and denies NSAID abuse. complains of RUQ and epigastric pain this morning; has epigastric and RUQ tenderness Will keep n.p.o. for now, consult general surgery for possible EGD. IV pantoprazole 40 mg every 12. Will continue. Will DC Toradol for now. will continue IVF discussed patient with Dr Daniels. Recommendations are that if there is active bleeding, patient will need to be transferred out for further intervention, as surgeon does endoscopies but doesnt do active interventions. Patient currently stable and is not bleeding actively. Earliest scope may be Wednesday. Will put patient on soft diet today. 3. Alcoholic hepatitis Still complains of right upper quadrant pain. has no fever. AST 65 and ALT was within normal limits. Bilirubin also within normal limits. MDF score: Right upper quadrant ultrasound pending; will review. 4. Nasal fracture secondary to fall: Stable. Has a resolving bruise across nasal bridge. Complains of tenderness. Will give Tylenol for pain. ENT consulted. Will follow recommendations. 5. Hypokalemia: K is 3.3 today. Mg is also borderline at 1.9. Will replace and monitor 5. DVT prophylaxis: SCDs. We will hold heparin due to possibility of GI bleed. 6. Prophylaxis: Pantoprazole. Code Visit Inpatient E&M: 15504 Subs Hosp L3
--- NOTE | 2018-01-01 09:51 | PN_ITS ---
Patient Problems: Active and Suspected Problems Nasal fracture (Acute) Fall from alcohol (Acute) Alcohol withdrawal delirium, acute, hyperactive (Acute) Benzodiazepine withdrawal with delirium (Acute) Alcohol dependence (Acute) Benzodiazepine dependence (Acute) Subjective: The patient is a 37 year old F with history of bipolar disorder and history of alcohol abuse was admitted via the ED on 12/31/2017 with a complaint of nausea, vomiting, severe anxiety, restlessness and alcohol withdrawal. She has been prescribed Valium 5 mg 4 times daily by her psychiatrist and [employer]enDr. Dustin. She was mixing this with alcohol. She drinks about 8-10 beers daily with a complaint of Jesus, vodka and beer as well. She was admitted to the [facility] program for alcoholic detox. She has a history of seizure with the last one being about a month prior to admission. CT done in the ED showed a nasal fracture and alcohol level was 310, amylase and lipase were within normal limits. Platelets was 222. She is being managed for alcoholic withdrawal and [facility] base protocol. ENT has been consulted and account of nasal fracture. Patient seen and examined this morning. She complains of severe pain over the bridge of her nose due to nasal fracture. She also complains of one episode of emesis last night which was coffee-ground in nature. She did not have any melena stools but does report a history of melena stools in the past. She denies having any recent EGD or colonoscopy and denies any history of NSAID abuse. She has never been told she has a peptic ulcer. She also complains of severe abdominal pain and says is mainly in the upper abdomen. She denies any fever or chills, any chest pain, or any diarrhea. Review of systems otherwise negative. Vitals/I&O's: Vital Signs Temp Pulse Resp BP Pulse Ox 98.5 F 81 16 139/90 H 99 01/01/18 07:55 01/01/18 07:59 01/01/18 07:55 01/01/18 07:55 01/01/18 07:55 Oxygen Delivery Method Room Air Weight: 142 lb 14.4 oz Body Mass Index (BMI) 25.3 Intake and Output for Last 24 Hours 12/30/17 12/31/17 01/01/18 23:59 23:59 23:59 Intake Total 365 / 365 2267 / 2267 Balance 365 / 365 2267 / 2267 General: Alert, Oriented x3, Cooperative, - - Agitated HEENT: PERRLA, EOMI, Normocephalic, - - Has resolving bruise across the bridge of her nose. Oral: Moist Mucosa Neck: Supple, No JVD, Negative Carotid Bruits Lungs: Clear to auscultation, Normal air movement Cardiovascular: Regular rate, Regular Rhythm, Normal S1, Normal S2, No murmurs Abdomen: Bowel Sounds Present, Soft, Non-Distended, No Hepato-splenomegaly, - - Has moderate epigastric and right upper quadrant tenderness, with no guarding or rebound tenderness. Jara sign was negative. Extremities: No edema, Capillary Refill Less than 3 Seconds Skin: No rashes, No breakdown Musculoskeletal: No Tenderness to Palpation of Joints or Extremities Lymphatic: No Cervical, Supraclavicular, or Inguinal Adenopathy Neurological: Cranial nerves II-XII grossly intact, Motor Exam 5/5 strength throughout Psych/Mental Status: Agitated, Anxious, Alert and oriented to time, place, person, mood and affect Laboratory Results 12/31/17 15:28: Amylase 80, Lipase 393 12/31/17 19:17: PT 13.7, INR 1.1 12/31/17 21:28: Troponin I < 0.02 01/01/18 06:31: Ethyl Alcohol 8.0 01/01/18 08:44: WBC 4.2 L, RBC 3.51 L, Hgb 10.4 L, Hct 31.4 L, MCV 89.5, MCH 29.6, MCHC 33.1, RDW 14.7 H, RDW Differential 46.6 H, Plt Count 213, MPV 9.4, Immature Gran % (Auto) 0.200, Neut % (Auto) 56.3, Lymph % (Auto) 30.5, [place] % ( Auto) 8.5, Eos % (Auto) 3.3, Baso % (Auto) 1.2 H, Absolute Neuts (auto) 2.4, Absolute Lymphs (auto) 1.29, Total Counted Not Reportable 01/01/18 08:44: Sodium 137, Potassium 3.3 L, Chloride 105, Carbon Dioxide 25.0, Anion Gap 7, BUN 6 L, Creatinine 0.69, Estim Creat Clear Calc 92.34, Est GFR ( MDRD) Af Amer 123, Est GFR (MDRD) Non-Af 101, BUN/Creatinine Ratio 8.7 L, Glucose 112 H, Calcium 7.3 L, Magnesium 1.9 Current Medications Al Hydroxide/Mg Hydroxide (Mylanta Ii) 30 ml PO Q6H PRN PRN PRN Reason: dyspesia Last Admin: 01/01/18 01:42 Dose: 30 ml Bisacodyl (Dulcolax) 10 mg RECTAL DAILY PRN PRN Reason: Constipation Chlordiazepoxide (Librium) 50 mg PO Q6H BLESSING PRN Reason: Taper Stop: 01/03/18 17:59 Last Admin: 01/01/18 03:16 Dose: 50 mg Clonidine (Catapres) 0.1 mg PO Q4 [facility] Last Admin: 01/01/18 05:38 Dose: 0.1 mg Dicyclomine HCl (Bentyl) 20 mg PO Q6H PRN PRN PRN Reason: abdominal discomfort Last Admin: 01/01/18 08:00 Dose: 20 mg Folic Acid (Folic Acid) 1 mg PO DAILY@0800 [facility] Last Admin: 01/01/18 07:56 Dose: 1 mg Hydroxyzine Pamoate (Vistaril Pamoate Capsule) 50 mg PO Q6H PRN PRN PRN Reason: Mild Anxiety (score 1/3) Last Admin: 01/01/18 03:16 Dose: 50 mg Potassium Chloride/Sodium Chloride () 1,000 mls @ 150 mls/hr IV .Q6H40M [facility] Last Admin: 01/01/18 08:03 Dose: 150 mls/hr Pantoprazole Sodium 40 mg/ (Sodium Chloride) 110 mls @ 330 mls/hr IV Q12 [facility] Last Admin: 12/31/17 21:27 Dose: 330 mls/hr Ketorolac Tromethamine (Toradol) 15 mg IV Q8 [facility] Stop: 01/05/18 14:01 Last Admin: 01/01/18 05:38 Dose: 15 mg Loperamide HCl (Imodium) 2 - 4 mg PO UD PRN PRN Reason: LOOSE STOOLS Methocarbamol (Methocarbamol) 750 mg PO Q6H PRN PRN PRN Reason: Muscle Aches Last Admin: 01/01/18 03:16 Dose: 750 mg Multivitamins/Minerals ([facility]it[facility] With Minerals) [facility] Admin: 01/01/18 07:57 Dose: 1 tablet Nicotine (Nicoderm Cq (Pbkc)) 21 mg TRANSDERM. DAILY [facility] Last Admin: 12/31/17 16:38 Dose: Not Given Nutritional Formula (Lactose Free) (Ensure Enlive) 120 ml PO 4X/DAY [facility] Last Admin: 01/01/18 09:16 Dose: Not Given Ondansetron HCl (Zofran Odt) 4 mg PO Q6H PRN PRN PRN Reason: NAUSEA Last Admin: 01/01/18 01:42 Dose: 4 mg Pramipexole Dihydrochloride (Mirapex) 0.25 mg PO Q12H PRN PRN PRN Reason: Restless legs Last Admin: 01/01/18 07:55 Dose: 0.25 mg Quetiapine Fumarate (Seroquel) 25 mg PO Q6H PRN PRN PRN Reason: Moderate Anxiety (score 2/3) Last Admin: 01/01/18 07:55 Dose: 25 mg Senna (Senokot) 1 tablet PO QHS PRN PRN PRN Reason: Constipation Sodium Chloride () 5 - 30 ml IV UD PRN PRN Reason: SALINE FLUSH Last Admin: 12/31/17 16:19 Dose: 10 ml Thiamine HCl ([facility]itamin B1) [facility] Last Admin: 01/01/18 07:56 Dose: 100 mg Trazodone HCl (Desyrel) 50 mg PO QHS [facility] Last Admin: 12/31/17 21:04 Dose: 50 mg Medical Necessity - Tobacco Use Smoking Status: Never smoker Assessment/Plan Active and Suspected Problems Nasal fracture (Acute) Fall from alcohol (Acute) Alcohol withdrawal delirium, acute, hyperactive (Acute) Benzodiazepine withdrawal with delirium (Acute) Alcohol dependence (Acute) Benzodiazepine dependence (Acute) Patient is a 37-year-old female with a history of alcohol abuse and bipolar disorder who was admitted through the [facility] for alcohol withdrawal. She is on alcohol withdrawal protocol per [facility] protocol. Amylase and lipase were within normal limits. 1. Acute alcohol withdrawal and possible benzodiazepine withdrawal * CIWA score today is 11 * Still feels anxious. On alcohol withdrawal protocol with Librium. * Will continue. We will continue monitoring CIWA score. * On multivitamin, folic acid and thiamine. * 2. UGI bleed possibly due to PUDx vs alcoholic gastritis * had episode of coffee-ground emesis overnight. Also complains of history of melena stools. * Never had an EGD or colonoscopy and denies NSAID abuse. * complains of RUQ and epigastric pain this morning; has epigastric and RUQ tenderness * Will keep n.p.o. for now, consult general surgery for possible EGD. * IV pantoprazole 40 mg every 12. Will continue. Will DC Toradol for now. * will continue IVF * discussed patient with Dr Daniels. Recommendations are that if there is active bleeding, patient will need to be transferred out for further intervention, as surgeon does endoscopies but doesnt do active interventions. Patient currently stable and is not bleeding actively. Earliest scope may be Wednesday. Will put patient on soft diet today. * 3. Alcoholic hepatitis * Still complains of right upper quadrant pain. has no fever. AST 65 and ALT was within normal limits. Bilirubin also within normal limits. * MDF score: * Right upper quadrant ultrasound pending; will review. * 4. Nasal fracture secondary to fall: Stable. Has a resolving bruise across nasal bridge. Complains of tenderness. Will give Tylenol for pain. ENT consulted. Will follow recommendations. 5. Hypokalemia: K is 3.3 today. Mg is also borderline at 1.9. Will replace and monitor 5. DVT prophylaxis: SCDs. We will hold heparin due to possibility of GI bleed. 6. Prophylaxis: Pantoprazole. Code Visit Inpatient E&M: 94902 [facility] Hosp L3
--- NOTE | 2018-01-01 11:39 | PCM.PN.BLA ---
Progress Note Asked to the patient for nasal fracture. HPI: 37 yo white female fell on her face onto tile on 12/28/17. She states she bled significantly. She did not seek medical attention for her nose. Then, she was admitted for alcohol withdrawal and a CT was obtained. This reveals nasal bone fracture. PE: awake alert nad ears-wnl bilaterally intranasal exam-no septal hematoma nasal dorsum- tender to touch. 1 x2 cm area of ecchymosis on the skin of the dorsum. The dorsum is moderately swollen but looks straight. M/op no masses ulceration bleeding CT- + nasal bone fracture. This looks non displaced. No other facial fractures A: Nasal bone fracture P: I doubt this will need operative repair. I would like to follow up with her this coming week, when her swelling subsides to make absolutely sure. Call [facility] upon discharge to set up follow up for this coming week.
--- NOTE | 2018-01-01 12:27 | PCM.CONS.GEN ---
Reason for Consult Date of Consultation: 01/01/18 Reason for Consultation: Coffee-ground emesis, melena History of Present Illness: The patient is a 37 year old F admitted for alcohol withdrawal, complains of epigastric abdominal pain as well as history of Hematemesis and melena. Patient has a heavy alcohol use history states she drinks about a pint of bourbon along with about 6 beers and some wine daily and this has been going on for at least 6 months prior to that she had been drinking a little less but still a significant amount. She had previously tried a however that location did not work for her but she does know of an all women's group that she can try. Patient states she has had abdominal pain in the epigastric region in the past and has had the melanotic stools however she cannot tell me how often or how long she has been having the stools. Patient denies her having an EGD or colonoscopy in the past. Currently her stools are more brown in color. Patient has had no further emesis after coming to the ER yesterday a.m. 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: No pertinent [employer]ECH [employer] history Lives: With Family - Her 2 sons Smoking Status: Never smoker Alcohol: Heavy - *Family History Maternal History Items: No pertinent history Review of Systems Constitutional: Denies: Anorexia, Chills, Fever Eyes: Denies: Blurred vision HEENT: Denies: Difficulty Swallowing Respiratory: Denies: Shortness of Breath Gastrointestinal: Reports: Abdominal Pain, Melena Genitourinary: Denies: Dysuria Musculoskeletal: Denies: Joint Pain Psychiatric: Reports: Anxiety - Controlled with medication, Depression - Controlled with medication Hematologic/ Lymphatic: Denies: Easy Bruising, Easy Bleeding Patient Problems: Active and Suspected Problems Nasal fracture (Acute) Fall from alcohol (Acute) Alcohol withdrawal delirium, acute, hyperactive (Acute) Benzodiazepine withdrawal with delirium (Acute) Alcohol dependence (Acute) Benzodiazepine dependence (Acute) - Physical Exam General: Alert, Oriented x3, Cooperative, No apparent distress HEENT: - - Ecchymosis to her bridge of her nose Lungs: Normal air movement Cardiovascular: Regular rate Abdomen: Soft, Non-Distended, Tender - Epigastric and right and left upper quadrants and right lower quadrant, - - No guarding or rebound Extremities: No clubbing, No cyanosis, No edema Skin: No rashes Vital Signs Temp Pulse Resp BP Pulse Ox 98.6 F 56 L 14 136/88 H 99 01/01/18 10:10 01/01/18 10:10 01/01/18 10:10 01/01/18 10:10 01/01/18 07:55 Oxygen Delivery Method Room Air Weight: 142 lb 14.4 oz Body Mass Index (BMI) 25.3 Intake and Output for Last 24 Hours 12/30/17 12/31/17 01/01/18 23:59 23:59 23:59 Intake Total 365 / 365 3248 / 3248 Balance 365 / 365 3248 / 3248 Laboratory Tests Past 24 Hrs 12/31/17 12/31/17 12/31/17 15:28 19:17 21:28 WBC RBC Hgb Hct MCV MCH MCHC RDW RDW Differential Plt Count MPV Immature Gran % (Auto) Neut % (Auto) Lymph % (Auto) [place] % (Auto) Eos % (Auto) Baso % (Auto) Absolute Neuts (auto) Absolute Lymphs (auto) Total Counted PT 13.7 INR 1.1 Sodium Potassium Chloride Carbon Dioxide Anion Gap BUN Creatinine Estim Creat Clear Calc Est GFR (MDRD) Af Amer Est GFR (MDRD) Non-Af BUN/Creatinine Ratio Glucose Calcium Magnesium Troponin I < 0.02 Amylase 80 Lipase 393 Ethyl Alcohol 01/01/18 01/01/18 01/01/18 06:31 08:44 08:44 WBC 4.2 L RBC 3.51 L Hgb 10.4 L Hct 31.4 L MCV 89.5 MCH 29.6 MCHC 33.1 RDW 14.7 H RDW Differential 46.6 H Plt Count 213 MPV 9.4 Immature Gran % (Auto) 0.200 Neut % (Auto) 56.3 Lymph % (Auto) 30.5 [place] % (Auto) 8.5 Eos % (Auto) 3.3 Baso % (Auto) 1.2 H Absolute Neuts (auto) 2.4 Absolute Lymphs (auto) 1.29 Total Counted Not Reportable PT INR Sodium 137 Potassium 3.3 L Chloride 105 Carbon Dioxide 25.0 Anion Gap 7 BUN 6 L Creatinine 0.69 Estim Creat Clear Calc 92.34 Est GFR (MDRD) Af Amer 123 Est GFR (MDRD) Non-Af 101 BUN/Creatinine Ratio 8.7 L Glucose 112 H Calcium 7.3 L Magnesium 1.9 Troponin I Amylase Lipase Ethyl Alcohol 8.0 Assessment/Plan Active and Suspected Problems Nasal fracture (Acute) Fall from alcohol (Acute) Alcohol withdrawal delirium, acute, hyperactive (Acute) Benzodiazepine withdrawal with delirium (Acute) Alcohol dependence (Acute) Benzodiazepine dependence (Acute) 37-year-old female admitted for alcohol withdrawal, history of coffee-ground emesis, Melena 1. Discussed the procedure of an EGD as well as a colonoscopy with the patient. Including risk but not limited to bleeding, perforation (requiring emergency surgery), incomplete colonoscopy (requiring barium enema), poor bowel prep, and anesthesia. Patient was agreeable plan and had no further questions about the procedure at this time. Okay for patient to be on clears today and tomorrow we will start the bowel prep tomorrow for a scope planned on Wednesday time to be determined. Continue Protonix 40 mg IV twice daily. Amanda Daniels M.D. Pager: [phone] [facility] [address] [place] [address], [address] [place] [address] Office: [phone]
--- NOTE | 2018-01-01 12:34 | CON.PCM_ITS ---
Reason for Consult Date of Consultation: 01/01/18 Reason for Consultation: Coffee-ground emesis, melena History of Present Illness: The patient is a 37 year old F admitted for alcohol withdrawal, complains of epigastric abdominal pain as well as history of Hematemesis and melena. Patient has a heavy alcohol use history states she drinks about a pint of bourbon along with about 6 beers and some wine daily and this has been going on for at least 6 months prior to that she had been drinking a little less but still a significant amount. She had previously tried a however that location did not work for her but she does know of an all women's group that she can try. Patient states she has had abdominal pain in the epigastric region in the past and has had the melanotic stools however she cannot tell me how often or how long she has been having the stools. Patient denies her having an EGD or colonoscopy in the past. Currently her stools are more brown in color. Patient has had no further emesis after coming to the ER yesterday a.m. 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 Lives: With Family - Her 2 sons Smoking Status: Never smoker Alcohol: Heavy - *Family History Maternal History Items: No pertinent history Review of Systems Constitutional: Denies: Anorexia, Chills, Fever Eyes: Denies: Blurred vision HEENT: Denies: Difficulty Swallowing Respiratory: Denies: Shortness of Breath Gastrointestinal: Reports: Abdominal Pain, Melena Genitourinary: Denies: Dysuria Musculoskeletal: Denies: Joint Pain Psychiatric: Reports: Anxiety - Controlled with medication, Depression - Controlled with medication Hematologic/ Lymphatic: Denies: Easy Bruising, Easy Bleeding Patient Problems: Active and Suspected Problems Nasal fracture (Acute) Fall from alcohol (Acute) Alcohol withdrawal delirium, acute, hyperactive (Acute) Benzodiazepine withdrawal with delirium (Acute) Alcohol dependence (Acute) Benzodiazepine dependence (Acute) - Physical Exam General: Alert, Oriented x3, Cooperative, No apparent distress HEENT: - - Ecchymosis to her bridge of her nose Lungs: Normal air movement Cardiovascular: Regular rate Abdomen: Soft, Non-Distended, Tender - Epigastric and right and left upper quadrants and right lower quadrant, - - No guarding or rebound Extremities: No clubbing, No cyanosis, No edema Skin: No rashes Vital Signs Temp Pulse Resp BP Pulse Ox 98.6 F 56 L 14 136/88 H 99 01/01/18 10:10 01/01/18 10:10 01/01/18 10:10 01/01/18 10:10 01/01/18 07:55 Oxygen Delivery Method Room Air Weight: 142 lb 14.4 oz Body Mass Index (BMI) 25.3 Intake and Output for Last 24 Hours 12/30/17 12/31/17 01/01/18 23:59 23:59 23:59 Intake Total 365 / 365 3248 / 3248 Balance 365 / 365 3248 / 3248 Laboratory Tests Past 24 Hrs 12/31/17 12/31/17 12/31/17 15:28 19:17 21:28 WBC RBC Hgb Hct MCV MCH MCHC RDW RDW Differential Plt Count MPV Immature Gran % (Auto) Neut % (Auto) Lymph % (Auto) [place] % (Auto) Eos % (Auto) Baso % (Auto) Absolute Neuts (auto) Absolute Lymphs (auto) Total Counted PT 13.7 INR 1.1 Sodium Potassium Chloride Carbon Dioxide Anion Gap BUN Creatinine Estim Creat Clear Calc Est GFR (MDRD) Af Amer Est GFR (MDRD) Non-Af BUN/Creatinine Ratio Glucose Calcium Magnesium Troponin I < 0.02 Amylase 80 Lipase 393 Ethyl Alcohol 01/01/18 01/01/18 01/01/18 06:31 08:44 08:44 WBC 4.2 L RBC 3.51 L Hgb 10.4 L Hct 31.4 L MCV 89.5 MCH 29.6 MCHC 33.1 RDW 14.7 H RDW Differential 46.6 H Plt Count 213 MPV 9.4 Immature Gran % (Auto) 0.200 Neut % (Auto) 56.3 Lymph % (Auto) 30.5 [place] % (Auto) 8.5 Eos % (Auto) 3.3 Baso % (Auto) 1.2 H Absolute Neuts (auto) 2.4 Absolute Lymphs (auto) 1.29 Total Counted Not Reportable PT INR Sodium 137 Potassium 3.3 L Chloride 105 Carbon Dioxide 25.0 Anion Gap 7 BUN 6 L Creatinine 0.69 Estim Creat Clear Calc 92.34 Est GFR (MDRD) Af Amer 123 Est GFR (MDRD) Non-Af 101 BUN/Creatinine Ratio 8.7 L Glucose 112 H Calcium 7.3 L Magnesium 1.9 Troponin I Amylase Lipase Ethyl Alcohol 8.0 Assessment/Plan Active and Suspected Problems Nasal fracture (Acute) Fall from alcohol (Acute) Alcohol withdrawal delirium, acute, hyperactive (Acute) Benzodiazepine withdrawal with delirium (Acute) Alcohol dependence (Acute) Benzodiazepine dependence (Acute) 37-year-old female admitted for alcohol withdrawal, history of coffee-ground emesis, Melena 1. Discussed the procedure of an EGD as well as a colonoscopy with the patient. Including risk but not limited to bleeding, perforation (requiring emergency surgery), incomplete colonoscopy (requiring barium enema), poor bowel prep, and anesthesia. Patient was agreeable plan and had no further questions about the procedure at this time. Okay for patient to be on clears today and tomorrow we will start the bowel prep tomorrow for a scope planned on Wednesday time to be determined. Continue Protonix 40 mg IV twice daily. Amanda Daniels M.D. Pager: [phone] [facility] [address] [place] [address], [address] [place] [address] Office: [phone]
[2018-01-01] MEDS: Loperamide 2 MG Capsule PO (12:36)
[2018-01-01] MEDS: traZODone 50 MG Tablet PO (21:35)
[2018-01-02] VITALS (11 sets, daily range): BP systolic 116–176; BP diastolic 78–101; PULSE 53–84; RESP 16–18; TEMP 36.6–37; O2SAT 95–100
[2018-01-02] MEDS: cloNIDine HCl 0.1 MG Tablet PO ×4 (01:58→21:18)
[2018-01-02] MEDS: chlordiazePOXIDE 25 MG Capsule PO ×3 (01:58→17:29)
[2018-01-02] MEDS: Acetaminophen 325 MG Tablet 650 MG PO (02:06)
[2018-01-02] MEDS: hydrOXYzine PAM 25 MG Capsule 50 MG PO ×3 (06:17→21:19)
[2018-01-02 06:44] LABS: Absolute Lymphocyte Count 0.98 X10^3/ul (0.83-4.51); Basophil# 0.02 X10^3/uL; Basophil% 0.6 % (0-1); Eosinophil# 0.17 X10^3/uL; Eosinophils% 4.9 % (0-5); Hematocrit 32.5 % (37-47); Hemoglobin 10.5 g/dl (12.0-15.0); Lymphocyte # 0.98 X10^3/ul (4.0); Lymphocyte % 28.5 % (19-41); Mean Corp Hgb Conc 32.3 g/gl (32-36); Mean Corpuscular Hgb 29.1 pg (27.0-32.0); Mean Platelet Vol. 9.9 fl (6.2-12.0); Monocyte# 0.29 X10^3/uL; Monocyte% 8.4 % (0-10); Neutrophil # 1.98 X10^3/uL (2.7-7.7); Neutrophil % 57.6 % (47-70); Platelet Count 202 K/mm3 (150-450); RBC Distribution Width CV 15.2 % (11.6-14.6); RBC Distribution Width SD 50.1 fl (35.1-43.9); Red Blood Count 3.61 M/mm3 (4.2-5.4); White Blood Count 3.4 K/mm3 (4.4-11.0)
[2018-01-02 06:56] LABS: POSITIVE COUNT NO; POSITIVE DIFFERENTIAL NO; POSITIVE MORPHOLOGY NO
[2018-01-02 07:22] LABS: AST(SGOT) 24 U/L (15-37); Alanine Aminotransfer ALT/SGPT 24 U/L (13-56); Albumin, Serum 3.2 g/dL (3.2-5.0); Alkaline Phosphatase 40 U/L (45-117); Anion Gap 8 (5-15); BUN 3 mg/dL (7-18); BUN/Creat Ratio 4.6 RATIO (10-20); Calcium,Total 7.5 mg/dL (8.5-10.1); Chloride 113 mmol/L (98-107); Creatinine, Serum 0.66 mg/dL (0.55-1.02); EST Glomerular Filtration Rate 108 mL/min (>60); Est Glom Filt Rate - Afr Amer 131 mL/min (>60); Estimated Creatinine Clearance 96.54 ml/min; Globulin 3.1 g/dL (2.2-4.2); Glucose 92 mg/dL (74-106); Potassium 4.2 mmol/L (3.5-5.1); Protein, Total 6.3 g/dL (6.4-8.2); Sodium Level 143 mmol/L (136-145)
--- NOTE | 2018-01-02 08:09 | PN.SURG_ITS ---
Patient Problems: Active and Suspected Problems Nasal fracture (Acute) Fall from alcohol (Acute) Alcohol withdrawal delirium, acute, hyperactive (Acute) Benzodiazepine withdrawal with delirium (Acute) Alcohol dependence (Acute) Benzodiazepine dependence (Acute) Subjective: Pt still c/o abd pain upper abd, jada clears - Physical Exam General: Alert, Oriented x3, Cooperative, No apparent distress Lungs: Normal air movement Cardiovascular: Regular rate Abdomen: Soft, Non-Distended, Tender - Bilateral upper quadrants, right lower quadrant, epigastric, no guarding or rebound Vital Signs Temp Pulse Resp BP Pulse Ox 98.5 F 72 16 122/78 H 100 01/02/18 06:00 01/02/18 06:00 01/02/18 06:00 01/02/18 06:00 01/02/18 06:00 Oxygen Delivery Method Room Air Weight: 142 lb 14.388 oz Body Mass Index (BMI) 25.3 Intake and Output for Last 24 Hours 12/31/17 01/01/18 01/02/18 23:59 23:59 23:59 Intake Total 365 / 365 7012 / 7012 1128 / 1128 Balance 365 / 365 7012 / 7012 1128 / 1128 Laboratory Tests Past 24 Hrs 01/01/18 01/01/18 01/02/18 08:44 08:44 05:52 WBC 4.2 L 3.4 L RBC 3.51 L 3.61 L Hgb 10.4 L 10.5 L Hct 31.4 L 32.5 L MCV 89.5 90.0 MCH 29.6 29.1 MCHC 33.1 32.3 RDW 14.7 H 15.2 H RDW Differential 46.6 H 50.1 H Plt Count 213 202 MPV 9.4 9.9 Immature Gran % (Auto) 0.200 0.000 Neut % (Auto) 56.3 57.6 Lymph % (Auto) 30.5 28.5 Citrus % (Auto) 8.5 8.4 Eos % (Auto) 3.3 4.9 Baso % (Auto) 1.2 H 0.6 Absolute Neuts (auto) 2.4 2.0 Absolute Lymphs (auto) 1.29 0.98 Total Counted Not Reportable Not Reportable Sodium 137 Potassium 3.3 L Chloride 105 Carbon Dioxide 25.0 Anion Gap 7 BUN 6 L Creatinine 0.69 Estim Creat Clear Calc 92.34 Est GFR (MDRD) Af Amer 123 Est GFR (MDRD) Non-Af 101 BUN/Creatinine Ratio 8.7 L Glucose 112 H Calcium 7.3 L Magnesium 1.9 Total Bilirubin AST ALT Alkaline Phosphatase Total Protein Albumin Globulin Albumin/Globulin Ratio 01/02/18 05:52 WBC RBC Hgb Hct MCV MCH MCHC RDW RDW Differential Plt Count MPV Immature Gran % (Auto) Neut % (Auto) Lymph % (Auto) [place] % (Auto) Eos % (Auto) Baso % (Auto) Absolute Neuts (auto) Absolute Lymphs (auto) Total Counted Sodium 143 Potassium 4.2 Chloride 113 H Carbon Dioxide 22.0 Anion Gap 8 BUN 3 L Creatinine 0.66 Estim Creat Clear Calc 96.54 Est GFR (MDRD) Af Amer 131 Est GFR (MDRD) Non-Af 108 BUN/Creatinine Ratio 4.6 L Glucose 92 Calcium 7.5 L Magnesium Total Bilirubin 0.90 AST 24 ALT 24 Alkaline Phosphatase 40 L Total Protein 6.3 L Albumin 3.2 Globulin 3.1 Albumin/Globulin Ratio 1.0 Medical Necessity - Tobacco Use Smoking Status: Never smoker Assessment/Plan Active and Suspected Problems Nasal fracture (Acute) Fall from alcohol (Acute) Alcohol withdrawal delirium, acute, hyperactive (Acute) Benzodiazepine withdrawal with delirium (Acute) Alcohol dependence (Acute) Benzodiazepine dependence (Acute) 37-year-old female admitted for alcohol withdrawal, history of coffee-ground emesis, Melena 1. Patient will start prep today for her colonoscopy and EGD tomorrow. Patient had no further questions about the procedure. Continue Protonix 40 mg IV twice daily. Amanda Daniels M.D. Pager: [phone] [facility] [address] [place] [address], [address] [place] [address] Office: [phone] Code Visit Inpatient E&M: 04301 Subs Hosp L1
[2018-01-02] MEDS: Mag Hydrox/Al Hydrox/Simeth 30 ML UDC PO (08:22)
--- NOTE | 2018-01-02 08:28 | NURSING ---
in to talk w/ patient after informed of concerns by Dr. Daniels. spent approximately 20minutes with patient. discussed previous shift care, plan of care for today, old iv site, and diet orders. emotional support given. mylanta given. pt denies all further needs. call light within reach.
[2018-01-02] MEDS: Multivitamins,Ther W-Minerals Tablet 1 TABLET PO (09:15)
[2018-01-02] MEDS: Folic Acid 1 MG Tablet PO (09:15)
[2018-01-02] MEDS: Thiamine Hydrochloride 100 MG Tablet PO (09:15)
--- NOTE | 2018-01-02 10:15 | PCM.PN.HOSP ---
Patient Problems: Active and Suspected Problems Nasal fracture (Acute) Fall from alcohol (Acute) Alcohol withdrawal delirium, acute, hyperactive (Acute) Benzodiazepine withdrawal with delirium (Acute) Alcohol dependence (Acute) Benzodiazepine dependence (Acute) Subjective: The patient is a 37 year old F with history of bipolar disorder and history of alcohol abuse was admitted via the ED on 12/31/2017 with a complaint of nausea, vomiting, severe anxiety, restlessness and alcohol withdrawal. She has been prescribed Valium 5 mg 4 times daily by her psychiatrist and [place], Dr. Dustin Zamora. She was mixing this with alcohol. She drinks about 8-10 beers daily with a complaint of Jesus, vodka and beer as well. She was admitted to the [facility] for alcoholic detox. She has a history of seizure with the last one being about a month prior to admission. CT done in the ED showed a nasal fracture and alcohol level was 310, amylase and lipase were within normal limits. Platelets was 222. She is being managed for alcoholic withdrawal and [facility] based protocol. ENT has been consulted and account of nasal fracture. Seen and examined this morning. She complains of pain over site of IV insertion due to infiltration which resolved after IV was taken out. She was reviewed by about them yesterday and is due to have EGD tomorrow morning. She has not had any vomiting or melena stool since admission. She denies any fever or chills, cough or chest pain, shortness of breath, abdominal pain, diarrhea vomiting. ENT reviewed her and recommends conservative management as hairline nasal fracture will heal on its own. Review of systems otherwise negative Vitals/I&O's: Vital Signs Temp Pulse Resp BP Pulse Ox 98.0 F 66 18 138/90 H 100 01/02/18 09:49 01/02/18 09:49 01/02/18 09:49 01/02/18 09:49 01/02/18 09:46 Oxygen Delivery Method Room Air Weight: 142 lb 14.388 oz Body Mass Index (BMI) 25.3 Intake and Output for Last 24 Hours 12/31/17 01/01/18 01/02/18 23:59 23:59 23:59 Intake Total 365 / 365 7012 / 7012 1128 / 1128 Balance 365 / 365 7012 / 7012 1128 / 1128 General: Alert, Oriented x3, Cooperative, - - Mild distress HEENT: Atraumatic, PERRLA, EOMI, Normocephalic Oral: Moist Mucosa Neck: Supple, No JVD, Negative Carotid Bruits Lungs: Clear to auscultation, Normal air movement, No rhonchi, No wheeze, No rales Cardiovascular: Regular rate, Regular Rhythm, Normal S1, Normal S2, No murmurs Abdomen: Bowel Sounds Present, Soft, Non Tender, Non-Distended, No Hepato-splenomegaly Extremities: No clubbing, No cyanosis, No edema, Capillary Refill Less than 3 Seconds Skin: No rashes, No breakdown, - - Resolving bruise over the bridge of the nose Musculoskeletal: No Tenderness to Palpation of Joints or Extremities Lymphatic: No Cervical, Supraclavicular, or Inguinal Adenopathy Neurological: Cranial nerves II-XII grossly intact, Neuro grossly intact Psych/Mental Status: Anxious, Alert and oriented to time, place, person, mood and affect Laboratory Results 01/02/18 05:52: WBC 3.4 L, RBC 3.61 L, Hgb 10.5 L, Hct 32.5 L, MCV 90.0, MCH 29.1, MCHC 32.3, RDW 15.2 H, RDW Differential 50.1 H, Plt Count 202, MPV 9.9, Immature Gran % (Auto) 0.000, Neut % (Auto) 57.6, Lymph % (Auto) 28.5, [place] % (Auto) 8.4, Eos % (Auto) 4.9, Baso % (Auto) 0.6, Absolute Neuts (auto) 2.0, Absolute Lymphs (auto) 0.98, Total Counted Not Reportable 01/02/18 05:52: Sodium 143, Potassium 4.2, Chloride 113 H, Carbon Dioxide 22.0, Anion Gap 8, BUN 3 L, Creatinine 0.66, Estim Creat Clear Calc 96.54, Est GFR (MDRD) Af Amer 131, Est GFR (MDRD) Non-Af 108, BUN/Creatinine Ratio 4.6 L, Glucose 92, Calcium 7.5 L, Total Bilirubin 0.90, AST 24, ALT 24, Alkaline Phosphatase 40 L, Total Protein 6.3 L, Albumin 3.2, Globulin 3.1, Albumin/Globulin Ratio 1.0 Current Medications Acetaminophen (Tylenol) 650 mg PO Q4H PRN PRN PRN Reason: PAIN Last Admin: 01/02/18 02:06 Dose: 650 mg Al Hydroxide/Mg Hydroxide (Mylanta Ii) 30 ml PO Q6H PRN PRN PRN Reason: dyspesia Last Admin: 01/02/18 08:22 Dose: 30 ml Bisacodyl (Dulcolax) 10 mg RECTAL DAILY PRN PRN Reason: Constipation Chlordiazepoxide (Librium) 50 mg PO Q8H BLESSING PRN Reason: Taper Stop: 01/03/18 17:59 Last Admin: 01/02/18 09:21 Dose: 50 mg Clonidine (Catapres) 0.1 mg PO Q4 [facility] Last Admin: 01/02/18 09:17 Dose: 0.1 mg Dicyclomine HCl (Bentyl) 20 mg PO Q6H PRN PRN PRN Reason: abdominal discomfort Last Admin: 01/01/18 21:35 Dose: 20 mg Folic Acid (Folic Acid) 1 mg PO DAILY@0800 [facility] Last Admin: 01/02/18 09:15 Dose: 1 mg Hydroxyzine Pamoate (Vistaril Pamoate Capsule) 50 mg PO Q6H PRN PRN PRN Reason: Mild Anxiety (score 1/3) Last Admin: 01/02/18 06:17 Dose: 50 mg Potassium Chloride/Sodium Chloride () 1,000 mls @ 150 mls/hr IV .Q6H40M [facility] Last Admin: 01/02/18 04:59 Dose: 150 mls/hr Pantoprazole Sodium 40 mg/ (Sodium Chloride) 110 mls @ 330 mls/hr IV Q12 [facility] Last Admin: 01/02/18 09:18 Dose: 330 mls/hr Loperamide HCl (Imodium) 2 - 4 mg PO UD PRN PRN Reason: LOOSE STOOLS Last Admin: 01/01/18 12:36 Dose: 4 mg Methocarbamol (Methocarbamol) 750 mg PO Q6H PRN PRN PRN Reason: Muscle Aches Last Admin: 01/01/18 23:40 Dose: 750 mg Multivitamins/Minerals (Multivitamin With Minerals) [facility] Last Admin: 01/02/18 09:15 Dose: 1 tablet Nicotine (Nicoderm Cq (Pbkc)) 21 mg TRANSDERM. DAILY [facility] Last Admin: 01/02/18 09:25 Dose: Not Given Nutritional Formula (Lactose Free) (Ensure Enlive) 120 ml PO 4X/DAY [facility] Last Admin: 01/02/18 09:17 Dose: Not Given Ondansetron HCl (Zofran Odt) 4 mg PO Q6H PRN PRN PRN Reason: NAUSEA Last Admin: 01/01/18 01:42 Dose: 4 mg Pramipexole Dihydrochloride (Mirapex) 0.25 mg PO Q12H PRN PRN PRN Reason: Restless legs Last Admin: 01/01/18 23:40 Dose: 0.25 mg Quetiapine Fumarate (Seroquel) 25 mg PO Q6H PRN PRN PRN Reason: Moderate Anxiety (score 2/3) Last Admin: 01/01/18 23:40 Dose: 25 mg Senna (Senokot) 1 tablet PO QHS PRN PRN PRN Reason: Constipation Sodium Chloride () 5 - 30 ml IV UD PRN PRN Reason: SALINE FLUSH Last Admin: 12/31/17 16:19 Dose: 10 ml Sodium Chloride/Electrolytes (Nulytely) 4,000 ml PO X1 ONE Stop: 01/02/18 13:01 Thiamine HCl (Vitamin B1) 100 mg PO DAILYCM [facility] Last Admin: 01/02/18 09:15 Dose: 100 mg Trazodone HCl (Desyrel) 50 mg PO QHS [facility] Last Admin: 01/01/18 21:35 Dose: 50 mg Medical Necessity - Tobacco Use Smoking Status: Never smoker Assessment/Plan Active and Suspected Problems Nasal fracture (Acute) Fall from alcohol (Acute) Alcohol withdrawal delirium, acute, hyperactive (Acute) Benzodiazepine withdrawal with delirium (Acute) Alcohol dependence (Acute) Benzodiazepine dependence (Acute) Patient is a 37-year-old female with a history of alcohol abuse and bipolar disorder who was admitted through the [facility] for alcohol withdrawal. She is on alcohol withdrawal protocol per [facility] protocol. Amylase and lipase were within normal limits. 1. Acute alcohol withdrawal and possible benzodiazepine withdrawal CIWA score today is On multivitamin, folic acid and thiamine. On alcohol withdrawal protocol with Librium. Will continue. We will continue monitoring CIWA score. 2. UGI bleed possibly due to PUDx vs alcoholic gastritis Had one coffee-ground emesis on admission and also complained of a history of melena stools Surgery on board. To have EGD tomorrow morning. Pantoprazole 40 mg every 12 hours. On IV fluids. The past midnight for EGD tomorrow morning. 3. Alcoholic hepatitis Still has epigastric tenderness and mild right upper quadrant tenderness. Is negative. Right Upper quadrant ultrasound was essentially normal. Level was normal, gallbladder was also normal continue monitoring. 4. Nasal fracture secondary to fall: Stable. Has a resolving bruise across nasal bridge. Tylenol for pain ENT reviewed patient. Advocates conservative management for now. 5. Hypokalemia: Resolved. Potassium is 4.2 today. We will continue monitoring. 5. DVT prophylaxis: SCDs. We will hold heparin due to possibility of GI bleed. 6. GI Prophylaxis: Pantoprazole. Code Visit Inpatient E&M: [address] [facility] Hosp L3
--- NOTE | 2018-01-02 10:23 | PN_ITS ---
Patient Problems: Active and Suspected Problems Nasal fracture (Acute) Fall from alcohol (Acute) Alcohol withdrawal delirium, acute, hyperactive (Acute) Benzodiazepine withdrawal with delirium (Acute) Alcohol dependence (Acute) Benzodiazepine dependence (Acute) Subjective: The patient is a 37 year old F with history of bipolar disorder and history of alcohol abuse was admitted via the ED on 12/31/2017 with a complaint of nausea, vomiting, severe anxiety, restlessness and alcohol withdrawal. She has been prescribed Valium 5 mg 4 times daily by her psychiatrist and [place], Dr. Dustin Zamora. She was mixing this with alcohol. She drinks about 8-10 beers daily with a complaint of Jesus, vodka and beer as well. She was admitted to the [facility] for alcoholic detox. She has a history of seizure with the last one being about a month prior to admission. CT done in the ED showed a nasal fracture and alcohol level was 310, amylase and lipase were within normal limits. Platelets was 222. She is being managed for alcoholic withdrawal and [facility] based protocol. ENT has been consulted and account of nasal fracture. Seen and examined this morning. She complains of pain over site of IV insertion due to infiltration which resolved after IV was taken out. She was reviewed by about them yesterday and is due to have EGD tomorrow morning. She has not had any vomiting or melena stool since admission. She denies any fever or chills, cough or chest pain, shortness of breath, abdominal pain, diarrhea vomiting. ENT reviewed her and recommends conservative management as hairline nasal fracture will heal on its own. Review of systems otherwise negative Vitals/I&O's: Vital Signs Temp Pulse Resp BP Pulse Ox 98.0 F 66 18 138/90 H 100 01/02/18 09:49 01/02/18 09:49 01/02/18 09:49 01/02/18 09:49 01/02/18 09:46 Oxygen Delivery Method Room Air Weight: 142 lb 14.388 oz Body Mass Index (BMI) 25.3 Intake and Output for Last 24 Hours 12/31/17 01/01/18 01/02/18 23:59 23:59 23:59 Intake Total 365 / 365 7012 / 7012 1128 / 1128 Balance 365 / 365 7012 / 7012 1128 / 1128 General: Alert, Oriented x3, Cooperative, - - Mild distress HEENT: Atraumatic, PERRLA, EOMI, Normocephalic Oral: Moist Mucosa Neck: Supple, No JVD, Negative Carotid Bruits Lungs: Clear to auscultation, Normal air movement, No rhonchi, No wheeze, No rales Cardiovascular: Regular rate, Regular Rhythm, Normal S1, Normal S2, No murmurs Abdomen: Bowel Sounds Present, Soft, Non Tender, Non-Distended, No Hepato- splenomegaly Extremities: No clubbing, No cyanosis, No edema, Capillary Refill Less than 3 Seconds Skin: No rashes, No breakdown, - - Resolving bruise over the bridge of the nose Musculoskeletal: No Tenderness to Palpation of Joints or Extremities Lymphatic: No Cervical, Supraclavicular, or Inguinal Adenopathy Neurological: Cranial nerves II-XII grossly intact, Neuro grossly intact Psych/Mental Status: Anxious, Alert and oriented to time, place, person, mood and affect Laboratory Results 01/02/18 05:52: WBC 3.4 L, RBC 3.61 L, Hgb 10.5 L, Hct 32.5 L, MCV 90.0, MCH 29.1, MCHC 32.3, RDW 15.2 H, RDW Differential 50.1 H, Plt Count 202, MPV 9.9, Immature Gran % (Auto) 0.000, Neut % (Auto) 57.6, Lymph % (Auto) 28.5, [place] % ( Auto) 8.4, Eos % (Auto) 4.9, Baso % (Auto) 0.6, Absolute Neuts (auto) 2.0, Absolute Lymphs (auto) 0.98, Total Counted Not Reportable 01/02/18 05:52: Sodium 143, Potassium 4.2, Chloride 113 H, Carbon Dioxide 22.0, Anion Gap 8, BUN 3 L, Creatinine 0.66, Estim Creat Clear Calc 96.54, Est GFR ( MDRD) Af Amer 131, Est GFR (MDRD) Non-Af 108, BUN/Creatinine Ratio 4.6 L, Glucose 92, Calcium 7.5 L, Total Bilirubin 0.90, AST 24, ALT 24, Alkaline Phosphatase 40 L, Total Protein 6.3 L, Albumin 3.2, Globulin 3.1, Albumin/ Globulin Ratio 1.0 Current Medications Acetaminophen (Tylenol) 650 mg PO Q4H PRN PRN PRN Reason: PAIN Last Admin: 01/02/18 02:06 Dose: 650 mg Al Hydroxide/Mg Hydroxide (Mylanta Ii) 30 ml PO Q6H PRN PRN PRN Reason: dyspesia Last Admin: 01/02/18 08:22 Dose: 30 ml Bisacodyl (Dulcolax) 10 mg RECTAL DAILY PRN PRN Reason: Constipation Chlordiazepoxide (Librium) 50 mg PO Q8H BLESSING PRN Reason: Taper Stop: 01/03/18 17:59 Last Admin: 01/02/18 09:21 Dose: 50 mg Clonidine (Catapres) 0.1 mg PO Q4 [facility] Last Admin: 01/02/18 09:17 Dose: 0.1 mg Dicyclomine HCl (Bentyl) 20 mg PO Q6H PRN PRN PRN Reason: abdominal discomfort Last Admin: 01/01/18 21:35 Dose: 20 mg Folic Acid (Folic Acid) 1 mg PO DAILY@0800 [facility] Last Admin: 01/02/18 09:15 Dose: 1 mg Hydroxyzine Pamoate (Vistaril Pamoate Capsule) 50 mg PO Q6H PRN PRN PRN Reason: Mild Anxiety (score 1/3) Last Admin: 01/02/18 06:17 Dose: 50 mg Potassium Chloride/Sodium Chloride () 1,000 mls @ 150 mls/hr IV .Q6H40M [facility] Last Admin: 01/02/18 04:59 Dose: 150 mls/hr Pantoprazole Sodium 40 mg/ (Sodium Chloride) 110 mls @ 330 mls/hr IV Q12 [facility] Last Admin: 01/02/18 09:18 Dose: 330 mls/hr Loperamide HCl (Imodium) 2 - 4 mg PO UD PRN PRN Reason: LOOSE STOOLS Last Admin: 01/01/18 12:36 Dose: 4 mg Methocarbamol (Methocarbamol) 750 mg PO Q6H PRN PRN PRN Reason: Muscle Aches Last Admin: 01/01/18 23:40 Dose: 750 mg Multivitamins/Minerals (Multivitamin With Minerals) [facility] Last Admin: 01/02/18 09:15 Dose: 1 tablet Nicotine (Nicoderm Cq (Pbkc)) 21 mg TRANSDERM. DAILY [facility] Last Admin: 01/02/18 09:25 Dose: Not Given Nutritional Formula (Lactose Free) (Ensure Enlive) 120 ml PO 4X/DAY [facility] Last Admin: 01/02/18 09:17 Dose: Not Given Ondansetron HCl (Zofran Odt) 4 mg PO Q6H PRN PRN PRN Reason: NAUSEA Last Admin: 01/01/18 01:42 Dose: 4 mg Pramipexole Dihydrochloride (Mirapex) 0.25 mg PO Q12H PRN PRN PRN Reason: Restless legs Last Admin: 01/01/18 23:40 Dose: 0.25 mg Quetiapine Fumarate (Seroquel) 25 mg PO Q6H PRN PRN PRN Reason: Moderate Anxiety (score 2/3) Last Admin: 01/01/18 23:40 Dose: 25 mg Senna (Senokot) 1 tablet PO QHS PRN PRN PRN Reason: Constipation Sodium Chloride () 5 - 30 ml IV UD PRN PRN Reason: SALINE FLUSH Last Admin: 12/31/17 16:19 Dose: 10 ml Sodium Chloride/Electrolytes (Nulytely) 4,000 ml PO X1 ONE Stop: 01/02/18 13:01 Thiamine HCl (Vitamin B1) 100 mg PO DAILYCM [facility] Last Admin: 01/02/18 09:15 Dose: 100 mg Trazodone HCl (Desyrel) 50 mg PO QHS [facility] Last Admin: 01/01/18 21:35 Dose: 50 mg Medical Necessity - Tobacco Use Smoking Status: Never smoker Assessment/Plan Active and Suspected Problems Nasal fracture (Acute) Fall from alcohol (Acute) Alcohol withdrawal delirium, acute, hyperactive (Acute) Benzodiazepine withdrawal with delirium (Acute) Alcohol dependence (Acute) Benzodiazepine dependence (Acute) Patient is a 37-year-old female with a history of alcohol abuse and bipolar disorder who was admitted through the [facility] for alcohol withdrawal. She is on alcohol withdrawal protocol per [facility] protocol. Amylase and lipase were within normal limits. 1. Acute alcohol withdrawal and possible benzodiazepine withdrawal * CIWA score today is * On multivitamin, folic acid and thiamine. * On alcohol withdrawal protocol with Librium. * Will continue. We will continue monitoring CIWA score. * * 2. UGI bleed possibly due to PUDx vs alcoholic gastritis * Had one coffee-ground emesis on admission and also complained of a history of melena stools * Surgery on board. To have EGD tomorrow morning. * Pantoprazole 40 mg every 12 hours. On IV fluids. * The past midnight for EGD tomorrow morning. * * 3. Alcoholic hepatitis * Still has epigastric tenderness and mild right upper quadrant tenderness. Is negative. * Right Upper quadrant ultrasound was essentially normal. Level was normal, gallbladder was also normal * continue monitoring. * 4. Nasal fracture secondary to fall: * Stable. Has a resolving bruise across nasal bridge. Tylenol for pain * ENT reviewed patient. Advocates conservative management for now. * 5. Hypokalemia: Resolved. Potassium is 4.2 today. We will continue monitoring. 5. DVT prophylaxis: SCDs. We will hold heparin due to possibility of GI bleed. 6. GI Prophylaxis: Pantoprazole. Code Visit Inpatient E&M: 04880 Subs Hosp L3
--- NOTE | 2018-01-02 10:32 | NURSING ---
Informed by regulatory affairs spec that pt has verbalized concern regarding safety/visitors stating has verbalized she does not want ex Elia Faulkner to have any contact with her. Aware pt has been removed from directory and has established a password, which was placed inside pt's chart. This nurse in to talk with the patient. She verbalized she is concerned of ex could possibly attempt to contact her, or could come see her. Stated she has a restraining order or no contact order against him. Stated that he has their two sons at this time. Asked patient if this person has made contact with her since her arrival. She denied it. Discussed getting a photo of this Elia Faulkner for unit safety. Patient was able to identify him on social media and would see about having her mom bring a photo of him. Discussed being taking off the directory, establishing the password, and keeping her door closed w/ a sign to see the nurse before entering Pt then verbalized mother was unable to bring in a picture. Photo on facebook identified by patient as her ex , Elia Faulkner, was printed off and placed at nurses' station. Primary RN, ribbon lapper tender, and regulatory affairs spec were updated.
[2018-01-02] MEDS: Electrolyte Solution/Peg's 4000 ML PO (13:23)
[2018-01-02] MEDS: Ondansetron ODT 4 MG Tablet PO (13:33)
[2018-01-02] MEDS: QUEtiapine 25 MG Tablet PO ×2 (13:35→21:19)
[2018-01-02] MEDS: Dicyclomine 10 MG Capsule 20 MG PO (13:35)
[2018-01-02] MEDS: Methocarbamol 750 MG Tablet PO (17:30)
[2018-01-02] MEDS: traZODone 50 MG Tablet PO (21:18)
[2018-01-02] MEDS: Pramipexole Di-HCl 0.25 MG Tablet PO (21:18)
[2018-01-03] VITALS (12 sets, daily range): BP systolic 131–156; BP diastolic 85–112; PULSE 52–79; RESP 16–18; TEMP 36.3–37.3; O2SAT 100; BMI 25.3
--- NOTE | 2018-01-03 | IMM_PTH ---
PATIENT: GENNARO DEVI LOC: MS3 U#:[id number] AGE/SX: 37/F ROOM: MI313 RE12/31/[address]: Dr. Meron Patton DO : 1980 BED: 1 DIS: 01/04/2018 SPEC #: [id number] RECD: 01/04/18 10:36 STATUS: SOUT REQ #: [id number] DAVID: 01/03/18 00:[address]: Amanda Daniels DEPT: IMMUNOHISTOCHEMISTRY RECD BY: Brie Santana ENTERED: 01/04/18 10:37 SP TYPE: IMMUNO OTHR DR: DO Dr. Huang Awad MD Dr. Prakash Chand, MD Dr. Tamera Robotham, MD No Primary Care Phys Tissues: A - Stomach, NOS Procedures: H Pylori (initial) Comments: @ Ordering doctor for H.PYLORI edited from to @ by RODNEY at 01/04/18 1056 @ Submitting doctor edited from to @ by TANISHAOD at 01/04/18 1056 PHYSICIAN & INSTITUTION [place] [address] SPECIMEN INFORMATION: Tissue Source: A ? Antrum biopsy Clinical Info: Coffee-ground emesis, abdomen pain, melena Specimen Number: [id number] CPT code: 27814 METHODOLOGY: Deparaffinized sections of prefer/formalin-fixed tissue or PAP/DQ stained slides are incubated with monoclonal/polyclonal antibodies/oligonucleotide probes. Localization is made via biotin free immunoperoxidase method. Appropriate controls are performed and reacted as expected. Results on target cell population are indicated in the following table: RESULTS: ANTIBODY / CLONE RESULT Block A H Pylori (polyclonal) negative These tests were developed and their performance characteristics determined by [facility]. They may not have been cleared or approved by the U.S. Food and Drug Administration. The FDA has determined that such clearance or approval is not necessary. INTERPRETATION: A. Antrum, biopsy: Negative for Helicobacter pylori organisms. SJ:sarah beth 01/04/18
[2018-01-03] MEDS: Mirtazapine 15 MG Tablet PO (00:25)
[2018-01-03 06:07] LABS: AST(SGOT) 22 U/L (15-37); Alanine Aminotransfer ALT/SGPT 24 U/L (13-56); Albumin, Serum 3.3 g/dL (3.2-5.0); Alkaline Phosphatase 42 U/L (45-117); Anion Gap 8 (5-15); BUN 2 mg/dL (7-18); BUN/Creat Ratio 2.5 RATIO (10-20); Calcium,Total 8.1 mg/dL (8.5-10.1); Chloride 109 mmol/L (98-107); EST Glomerular Filtration Rate 85 mL/min (>60); Est Glom Filt Rate - Afr Amer 103 mL/min (>60); Estimated Creatinine Clearance 79.65 ml/min; Globulin 3.4 g/dL (2.2-4.2); Glucose 89 mg/dL (74-106); Magnesium 2.3 mg/dL (1.6-2.6); Potassium 4.3 mmol/L (3.5-5.1); Protein, Total 6.7 g/dL (6.4-8.2); Sodium Level 141 mmol/L (136-145)
--- NOTE | 2018-01-03 09:10 | GASB_PTH ---
PATIENT: GENNARO DEVI LOC: MS3 U#:[id number] AGE/SX: 37/F ROOM: MS313 RE12/31/[address]: Dr. Meron Patton DO : 1980 BED: 1 DIS: 01/04/2018 SPEC #: [id number] RECD: 01/03/18 10:27 STATUS: MADIHA REJenny #: [id number] DAVID: 01/03/18 09:[address]: Amanda Daniels DEPT: SURGICAL PATHOLOGY RECD BY: Arsh Argueta ENTERED: 01/03/18 12:26 SP TYPE: Gastric Bx OTHR DR: DO Dr. Huang Awad MD Dr. Prakash Chand, MD Dr. Tamera Robotham, MD No Primary Care Phys Tissues: A - Gastric mucous membrane B - Gastric mucous membrane Procedures: Special Stain Group II Surgery Specimen Level IV Alcian Blue/PAS (control) Comments: @ Ordering doctor for SUIV edited from to @ by RODNEY at 01/03/18 1529 @ Submitting doctor edited from to @ by RGOOD at 01/03/18 1529 HEADER OPERATION: EGD with biopsy PRE-OP DIAGNOSIS: Coffee-ground emesis, abdomen pain, melena TISSUE SUBMITTED: A ? Antrum biopsy for H. pylori and path, B ? GE junction biopsy MICROSCOPIC DIAGNOSIS A. Antrum, biopsy: Mild gastritis. B. GE junction, biopsy: Fragment of gastroesophageal mucosa with chronic inflammation. Intestinal metaplasia (goblet cell metaplasia) is not identified. See comment. SJ:sarah beth 01/04/18 COMMENT A. The results of immunohistochemistry for Helicobacter pylori will be reported separately ([id number]). B. Alcian blue/PAS stain with matched control is used in the evaluation of the specimen. MICROSCOPIC DESCRIPTION Slides are reviewed. A. The specimen shows fragments of gastric mucosa with chronic inflammatory cell infiltrates in the lamina propria consisting of lymphocytes and plasma cells, consistent with mild chronic gastritis. GROSS DESCRIPTION A - Received in fixative is one container labeled with the patient's name and designated antrum biopsy. The specimen consists of one irregular fragment of light watson soft tissue that measures 0.3 x 0.3 x 0.1 cm. The specimen is totally submitted in one cassette. B - Received in fixative is one container labeled with the patient's name and designated GE junction biopsy. The specimen consists of one irregular fragment of light watson soft tissue that measures 0.4 x 0.3 x 0.1 cm. The specimen is totally submitted in one cassette. / SJ:rg 01/03/18 TC:3 CPT: 42107 x2, 53663
--- NOTE | 2018-01-03 09:41 | PCM.PROGNOTE ---
Patient Problems: Active and Suspected Problems Nasal fracture (Acute) Fall from alcohol (Acute) Alcohol withdrawal delirium, acute, hyperactive (Acute) Benzodiazepine withdrawal with delirium (Acute) Alcohol dependence (Acute) Benzodiazepine dependence (Acute) Subjective: Patient is a 37-year-old female with a past medical history of bipolar disorder, chronic benzodiazepine use, tobacco dependence, alcoholism and cannabis use who presented to the ED at [facility] on 12/31/2017 complaining of nausea, vomiting, anxiety and restlessness. CBC at admission was unremarkable. Electrolytes, BUN and creatinine were all within normal limits. AST was mildly increased at 65 with an ALT of 47. Troponins was negative. Amylase and lipase were normal. Drug screen was positive for benzodiazepines and cannabinoids. Ethyl alcohol level was 310. CT scan of the head showed a nondisplaced nasal bone fracture and she was seen in consultation by Dr. Lobo and he recommended follow-up as an outpatient with him in the office post discharge. She was admitted to the [facility] program for medical stabilization for acute alcohol withdrawal. Dr. Daniels was consulted for complaint of epigastric pain history of black stool. She was scheduled for colonoscopy and EGD on 01/03/[address] Daniels. She is currently afebrile. Blood pressures are mildly elevated on the current blood pressure is 144/91. Heart rate is within normal limits and she is 100% saturated on room air with a respiratory rate of 16. Electrolytes, BUN and creatinine are unremarkable today. Cardiac enzymes were negative. Colonoscopy today was normal. EGD showed gastritis and gastroesophageal reflux disease, biopsies were taken. She is complaining she feels terrible because she has only had clear liquids. She does not appear to be in any distress. She had all her makeup on for her endoscopy today. She was talking on the phone with her mother when I entered the room. She is requesting additional medication for anxiety. She sees a psychiatrist in [place] regularly and he is aware of her problems with drinking. - Physical Exam General: Alert, Oriented x3, Cooperative, No apparent distress HEENT: PERRLA, EOMI Oral: Dry Mucosa Neck: Supple Lungs: Clear to auscultation Cardiovascular: Regular rate, Regular Rhythm, Normal S1, Normal S2, No murmurs, No Ectopic Activity Abdomen: Bowel Sounds Present, Soft, Non Tender, Non-Distended Extremities: No clubbing, No cyanosis, No edema Neurological: Cranial nerves II-XII grossly intact, Neuro grossly intact Psych/Mental Status: Appropriate - complains about being anxious but not restless, not tremulous and is making good eye contact. Vital Signs Temp Pulse Resp BP Pulse Ox 99.1 F 59 L 16 144/91 H 100 01/03/18 07:36 01/03/18 07:36 01/03/18 07:36 01/03/18 07:36 01/03/18 07:36 Oxygen Delivery Method Room Air Weight: 142 lb 14.388 oz Body Mass Index (BMI) 25.3 Intake and Output for Last 24 Hours 01/01/18 01/02/18 01/03/18 23:59 23:59 23:59 Intake Total 7012 / 7012 7100 / 7100 2136 / 2136 Output Total 900 / 900 Balance 7012 / 7012 6200 / 6200 2136 / 2136 Laboratory Tests Past 24 Hrs 01/03/18 05:15 Sodium 141 Potassium 4.3 Chloride 109 H Carbon Dioxide 24.0 Anion Gap 8 BUN 2 L Creatinine 0.80 Estim Creat Clear Calc 79.65 Est GFR (MDRD) Af Amer 103 Est GFR (MDRD) Non-Af 85 BUN/Creatinine Ratio 2.5 L Glucose 89 Calcium 8.1 L Magnesium 2.3 Total Bilirubin 0.60 AST 22 ALT 24 Alkaline Phosphatase 42 L Total Protein 6.7 Albumin 3.3 Globulin 3.4 Albumin/Globulin Ratio 1.0 Medical Necessity - Tobacco Use Smoking Status: Never smoker Assessment/Plan Active and Suspected Problems Nasal fracture (Acute) Fall from alcohol (Acute) Alcohol withdrawal delirium, acute, hyperactive (Acute) Benzodiazepine withdrawal with delirium (Acute) Alcohol dependence (Acute) Benzodiazepine dependence (Acute) Impressions 1. alcoholism - has completed 72 hour [facility] program for ETOH withdrawal 2. BPD 3. anxiety chronic benzodiazepine use- 4. gastritis - started on Carafate in addition to Protonix 5. GERD 6. drug screen + for cannabinoids but she states she is an infrequent user 7. Tobacco dependence DC Telemetry Add Carafate to the drug regimen and change the Protonix to PO Advance diet Probable DC tomorrow I explained that she would need to follow up with her psychiatrist to adjust medication for anxiety. She has an appt for Wednesday for intake at a rehab facility near her house in [place] restart the Valium 5 mg QID PRN anxiety Code Visit Inpatient E&M: 86611 Subs Hosp L2
--- NOTE | 2018-01-03 09:50 | PN_ITS ---
Patient Problems: Active and Suspected Problems Nasal fracture (Acute) Fall from alcohol (Acute) Alcohol withdrawal delirium, acute, hyperactive (Acute) Benzodiazepine withdrawal with delirium (Acute) Alcohol dependence (Acute) Benzodiazepine dependence (Acute) Subjective: Patient is a 37-year-old female with a past medical history of bipolar disorder , chronic benzodiazepine use, tobacco dependence, alcoholism and cannabis use who presented to the ED at [facility] on 12/31/2017 complaining of nausea, vomiting, anxiety and restlessness. CBC at admission was unremarkable. Electrolytes, BUN and creatinine were all within normal limits. AST was mildly increased at 65 with an ALT of 47. Troponins was negative. Amylase and lipase were normal. Drug screen was positive for benzodiazepines and cannabinoids. Ethyl alcohol level was 310. CT scan of the head showed a nondisplaced nasal bone fracture and she was seen in consultation by Dr. Lobo and he recommended follow-up as an outpatient with him in the office post discharge. She was admitted to the [facility] program for medical stabilization for acute alcohol withdrawal. Dr. Daniels was consulted for complaint of epigastric pain history of black stool. She was scheduled for colonoscopy and EGD on 01/03/[address] Daniels. She is currently afebrile. Blood pressures are mildly elevated on the current blood pressure is 144/91. Heart rate is within normal limits and she is 100% saturated on room air with a respiratory rate of 16. Electrolytes, BUN and creatinine are unremarkable today. Cardiac enzymes were negative. Colonoscopy today was normal. EGD showed gastritis and gastroesophageal reflux disease, biopsies were taken. She is complaining she feels terrible because she has only had clear liquids. She does not appear to be in any distress. She had all her makeup on for her endoscopy today. She was talking on the phone with her mother when I entered the room. She is requesting additional medication for anxiety. She sees a psychiatrist in [place] regularly and he is aware of her problems with drinking. - Physical Exam General: Alert, Oriented x3, Cooperative, No apparent distress HEENT: PERRLA, EOMI Oral: Dry Mucosa Neck: Supple Lungs: Clear to auscultation Cardiovascular: Regular rate, Regular Rhythm, Normal S1, Normal S2, No murmurs, No Ectopic Activity Abdomen: Bowel Sounds Present, Soft, Non Tender, Non-Distended Extremities: No clubbing, No cyanosis, No edema Neurological: Cranial nerves II-XII grossly intact, Neuro grossly intact Psych/Mental Status: Appropriate - complains about being anxious but not restless, not tremulous and is making good eye contact. Vital Signs Temp Pulse Resp BP Pulse Ox 99.1 F 59 L 16 144/91 H 100 01/03/18 07:36 01/03/18 07:36 01/03/18 07:36 01/03/18 07:36 01/03/18 07:36 Oxygen Delivery Method Room Air Weight: 142 lb 14.388 oz Body Mass Index (BMI) 25.3 Intake and Output for Last 24 Hours 01/01/18 01/02/18 01/03/18 23:59 23:59 23:59 Intake Total 7012 / 7012 7100 / 7100 2136 / 2136 Output Total 900 / 900 Balance 7012 / 7012 6200 / 6200 2136 / 2136 Laboratory Tests Past 24 Hrs 01/03/18 05:15 Sodium 141 Potassium 4.3 Chloride 109 H Carbon Dioxide 24.0 Anion Gap 8 BUN 2 L Creatinine 0.80 Estim Creat Clear Calc 79.65 Est GFR (MDRD) Af Amer 103 Est GFR (MDRD) Non-Af 85 BUN/Creatinine Ratio 2.5 L Glucose 89 Calcium 8.1 L Magnesium 2.3 Total Bilirubin 0.60 AST 22 ALT 24 Alkaline Phosphatase 42 L Total Protein 6.7 Albumin 3.3 Globulin 3.4 Albumin/Globulin Ratio 1.0 Medical Necessity - Tobacco Use Smoking Status: Never smoker Assessment/Plan Active and Suspected Problems Nasal fracture (Acute) Fall from alcohol (Acute) Alcohol withdrawal delirium, acute, hyperactive (Acute) Benzodiazepine withdrawal with delirium (Acute) Alcohol dependence (Acute) Benzodiazepine dependence (Acute) Impressions 1. alcoholism - has completed 72 hour [facility] program for ETOH withdrawal 2. BPD 3. anxiety chronic benzodiazepine use- 4. gastritis - started on Carafate in addition to Protonix 5. GERD 6. drug screen + for cannabinoids but she states she is an infrequent user 7. Tobacco dependence DC Telemetry Add Carafate to the drug regimen and change the Protonix to PO Advance diet Probable DC tomorrow I explained that she would need to follow up with her psychiatrist to adjust medication for anxiety. She has an appt for Wednesday for intake at a rehab facility near her house in [place] restart the Valium 5 mg QID PRN anxiety Code Visit Inpatient E&M: 00881 Subs Hosp L2
--- NOTE | 2018-01-03 09:55 | PCM.OPRPT ---
Report of Operation Date of Procedure: 01/03/18 Pre-Operative Diagnosis: History of coffee-ground emesis, melena, upper abdominal pain Post-Operative Diagnosis: Gastritis, GERD, normal colon Surgery/Procedure Performed:: EGD with biopsy, colonoscopy Type of Anesthesia:: MAC Anesthesiologist: Prakash Felipe Specimen's removed: 1. Antral, 2. GE junction Estimated Blood Loss (mL): Minimal Description of Procedure: Procedure: EGD with biopsy After obtaining informed consent, the endoscope was passed under direct visualization. Throughout the procedure, patient's blood pressure, pulse, oxygen saturations were monitored continuously by anesthesia. The endoscope was introduced through the mouth and advanced to the 2nd part of the duodenum. The upper GI endoscopy was accomplished without difficulty. Patient tolerated procedure well. Findings: Mild erythematous mucosa found gastric fundus, body, antrum. There is also change of mucosa at the GE junction Biopsies were taken with cold biopsy for histology the antrum as well as the GE junction. Estimated blood loss was minimal. The duodenum was normal. Impression: 1. GERD 2. Gastritis. Biopsied at antrum. 3. Normal examined duodenum Recommendations: Continue PPI 40 mg p.o. daily, start Carafate 1 g p.o. 4 times daily, continue to avoid alcohol Procedure: Colonoscopy After reviewing the risks benefits, the patient was deemed in satisfactory condition to undergo procedure. After obtaining informed consent, the scope was passed under direct visualization. Throughout the procedure, the patient's blood pressure pulse and position saturations were monitored continuously anesthesia. The colonoscope was introduced through the anus and advanced to the cecum, identified by the appendiceal orifice, IC valve and transillumination. The colonoscopy was performed without difficulty. The patient tolerated procedure well. Quality of bowel prep was adequate. Findings: The perianal and digital rectal exam were normal. The colon (entire examined portion) appeared normal. Retroflexed view of the distal rectum and anal verge was normal and showed no anal or rectal abnormalities Impression: 1. The entire colon is normal. 2. The distal rectal and anal verge were normal on retroflexed view. Recommendations: Repeat colonoscopy at age 50 for screening purposes - Complications None
[2018-01-03] MEDS: Thiamine Hydrochloride 100 MG Tablet PO (11:27)
[2018-01-03] MEDS: Folic Acid 1 MG Tablet PO (11:27)
[2018-01-03] MEDS: cloNIDine HCl 0.1 MG Tablet PO (11:27)
[2018-01-03] MEDS: Multivitamins,Ther W-Minerals Tablet 1 TABLET PO (11:27)
[2018-01-03] MEDS: Sucralfate 1 GM Tablet PO ×2 (11:29→16:53)
[2018-01-03] MEDS: Pantoprazole Sodium 40 MG Tablet PO (11:29)
[2018-01-03] MEDS: chlordiazePOXIDE 25 MG Capsule PO (11:34)
[2018-01-03] MEDS: Escitalopram Oxalate 20 MG Tablet PO (12:08)
--- NOTE | 2018-01-03 15:12 | CHAPLAIN ---
patient was sleeping; did not disturb her
[2018-01-03] MEDS: diazePAM 5 MG Tablet PO ×2 (18:10→22:18)
[2018-01-03] MEDS: Ondansetron ODT 4 MG Tablet PO (20:06)
[2018-01-03] MEDS: traZODone 50 MG Tablet PO (22:18)
[2018-01-04] MEDS: Ondansetron ODT 4 MG Tablet PO (03:00)
[2018-01-04] MEDS: diazePAM 5 MG Tablet PO ×2 (03:00→08:35)
[2018-01-04 03:06] VITALS: BP 158/85; PULSE 96; RESP 16; TEMP 36.9; O2SAT 99
[2018-01-04] MEDS: Acetaminophen 325 MG Tablet 650 MG PO (06:27)
[2018-01-04] MEDS: Sucralfate 1 GM Tablet PO (06:27)
[2018-01-04 08:10] VITALS: BP 141/91; PULSE 77; RESP 16; TEMP 37.1; O2SAT 97
[2018-01-04] MEDS: Folic Acid 1 MG Tablet PO (08:33)
--- NOTE | 2018-01-04 10:06 | DCINST_ITS ---
- Discharge Diagnoses Current Active Problems: Current Active and Chronic Problems Bipolar disorder (Chronic) Nasal fracture (Acute) Fall from alcohol (Acute) Seizure disorder (Chronic) Alcohol withdrawal delirium, acute, hyperactive (Acute) Benzodiazepine withdrawal with delirium (Acute) Alcohol dependence (Acute) Benzodiazepine dependence (Acute) You will use the following diet at home:: Regular, Other - no caffeine, peppermints, chocolate or smoking.....these all increase acid production in the stomach and also increase reflux Your food should be the consistency of: Regular Your liquids should be the consistency of: Regular/Thin Discharge Activity: Return to Normal Activity Call your doctor if you observe: Fever of 101 or Higher, Shortness of breath, Chest pain, Calf discomfort Additional Instructions: Dr. Daniels says that she will call you with the results of the biopsies she took from the stomach. You will be on Protonix to decrease stomache acid and also carafate that protects the lining of the stomach at discharge. the Carafate will be discontinued after 2 weeks and you will continue the Protonix once a day. You should follow up with your PCP in 1- 2 weeks. Call your psychiatrist and let him know that you were in the hospital for detox from alcohol. Explain that you do not feel that your anxiety is adequately controlled and you drink to control the anxiety. Ask to be seen for adjustment in medications. Pending Tests on Discharge: biopsies from EGD Allergies/Adverse Reactions: Allergies Penicillins Allergy (Verified 12/31/17 09:47) Anaphylaxis Medications to take at Discharge Diazepam [Valium] 5 mg PO 4X/DAY 12/31/17 Escitalopram Oxalate [Lexapro] 20 mg PO DAILY 12/31/17 Mirtazapine 15 mg PO QHS PRN 12/31/17 Pantoprazole Sodium [Protonix] 40 mg PO DAILY #30 tab 01/03/18 Sucralfate [Carafate] 1 gm PO 4X/DAY #120 tab 01/03/18 Nicotine [Nicoderm Cq] 21 mg TRANSDERM. DAILY #28 patch 01/04/18 Pantoprazole Sodium [Protonix] 40 mg PO DAILY #30 tab 01/04/18 Sucralfate [Carafate] 1 gm PO ACHS #56 tab 01/04/18 The following prescriptions were given: Nicotine [Nicoderm Cq] 21 mg TRANSDERM. DAILY #28 patch Pantoprazole Sodium [Protonix] 40 mg PO DAILY #30 tab Pantoprazole Sodium [Protonix] 40 mg PO DAILY #30 tab Sucralfate [Carafate] 1 gm PO ACHS #56 tab Sucralfate [Carafate] 1 gm PO 4X/DAY #120 tab Primary Care Physician: Care Physician,No Primary [Primary Care Provider] - Please follow up with your Primary Care Physician in: 1-2 weeks Please Follow Up With: psychiatrist When: call to schedule an appt Please Follow Up With: Amanda Daniels MD When: next week in the office Proposed Discharge Date: 01/04/18
--- NOTE | 2018-01-04 10:10 | PCM.DC.SUM ---
Discharge Date and Diagnosis - Problem List Patient Problems: Active and Suspected Problems Gastritis (Acute) GERD (gastroesophageal reflux disease) (Acute) Fall (Acute) Alcohol intoxication with blood level over 0.3 (Acute) Nasal fracture (Acute) Alcohol withdrawal delirium, acute, hyperactive (Acute) Benzodiazepine withdrawal with delirium (Acute) Alcohol dependence (Acute) Benzodiazepine dependence (Acute) Date of Admission: 12/31/17 Date of Discharge: 01/04/18 - Primary Discharge Diagnosis Active and Suspected Problems Gastritis (Acute) GERD (gastroesophageal reflux disease) (Acute) Fall (Acute) Alcohol intoxication with blood level over 0.3 (Acute) Nasal fracture (Acute) Alcohol withdrawal delirium, acute, hyperactive (Acute) Benzodiazepine withdrawal with delirium (Acute) Alcohol dependence (Acute) Benzodiazepine dependence (Acute) - Secondary Discharge Diagnosis Chronic Problems Tobacco dependence due to cigarettes (Chronic) Cannabis use disorder, mild, abuse (Chronic) Bipolar disorder (Chronic) Seizure disorder (Chronic) Alcohol dependence - chronic Benzodiazepine dependence - chronic Hospital Course and Treatment Imaging Results: Clinical Impression(s) from Imaging Studies Brain CT 12/31/17 10:06 IMPRESSION: Normal unenhanced CT scan of the brain. Electronically Signed: Geo Gates MD at 10:52 EDT , Service support , Facial/Sinus 12/31/17 10:09 IMPRESSION: Nasal fracture. Electronically Signed: Geo Gates MD at 11:00 EDT , Service support , Abdomen Ultrasound 01/01/18 05:55 IMPRESSION: Normal right upper quadrant ultrasound examination. Electronically Signed: Devyn Greenberg MD at 10:01 EDT Tel , Service support , Dr. Amanda Daniels-general surgery Operations: None Procedures: Colonoscopy - normal, EGD - gastritis, change of the mucosa at the GE junction - biopsies pending at the time of discharge Summary of Care Provided: Patient is a 37-year-old female with a past medical history of bipolar disorder, chronic benzodiazepine use, tobacco dependence, alcoholism and cannabis use who presented to the ED at [facility] on 12/31/2017 complaining of nausea, vomiting, anxiety and restlessness. CBC at admission was unremarkable. Electrolytes, BUN and creatinine were all within normal limits. AST was mildly increased at 65 with an ALT of 47. Troponins was negative. Amylase and lipase were normal. Drug screen was positive for benzodiazepines and cannabinoids. Ethyl alcohol level was 310. CT scan of the head showed a nondisplaced nasal bone fracture and she was seen in consultation by Dr. Lobo and he recommended follow-up as an outpatient with him in the office post discharge. She was admitted to the [facility] program for medical stabilization for acute alcohol withdrawal. Dr. Daniels was consulted for complaint of epigastric pain history of black stool. She underwent EGD and colonoscopy on 01/[address] Daniels. The colonoscopy was normal. The EGD showed gastritis and a change of the mucosa at the GE junction. Biopsies were taking but, are pending at the time of DC. Carafate was added to her drug regimen for the next 2 weeks. The diet was advanced on 01/03/18 to soft with no gastric stimulus and she was tolerating prior to DC. HGB remained stable at 10.4. On the date of discharge she was afebrile with stable vital signs. Blood pressures have been mildly elevated and she is complaining of anxiety. She was restarted on Valium 5 mg p.o. 4 times daily which is prescribed by her psychiatrist. She will follow up with Dr. Daniels in 1 week and will also follow up with Dr. Lobo. I suggested she find a PCP for her chronic medical needs and routine health maintenance. She will call her psychiatrist and request an appt to discuss adjusting her medication to get control of her anxiety. She has an appt scheduled for 01/05 for intake evaluation for alcohol rehab. Alert and oriented X 3 NAD appropriate Lungs - CTA Heart - RRR with no MM and no gallop Abd - soft, BS present, tender in the upper mid abdomen but, no guarding. No focal neurologic deficits This note was generated with Inveniasation software. It may contain incorrect words, spelling, and punctuation that were not noted in checking the note before signing. Discharge Activity: Return to Normal Activity Call your doctor if you observe: Fever of 101 or Higher, Shortness of breath, Chest pain, Calf discomfort Home Medications: Medications to take at Discharge Diazepam [Valium] 5 mg PO 4X/DAY 12/31/17 Escitalopram Oxalate [Lexapro] 20 mg PO DAILY 12/31/17 Mirtazapine 15 mg PO QHS PRN 12/31/17 Pantoprazole Sodium [Protonix] 40 mg PO DAILY #30 tab 01/03/18 Sucralfate [Carafate] 1 gm PO 4X/DAY #120 tab 01/03/18 Nicotine [Nicoderm Cq] 21 mg TRANSDERM. DAILY #28 patch 01/04/18 Pantoprazole Sodium [Protonix] 40 mg PO DAILY #30 tab 01/04/18 Sucralfate [Carafate] 1 gm PO ACHS #56 tab 01/04/18 Following Prescrptions Were Given to Patient: Nicotine [Nicoderm Cq] 21 mg TRANSDERM. DAILY #28 patch Pantoprazole Sodium [Protonix] 40 mg PO DAILY #30 tab Pantoprazole Sodium [Protonix] 40 mg PO DAILY #30 tab Sucralfate [Carafate] 1 gm PO ACHS #56 tab Sucralfate [Carafate] 1 gm PO 4X/DAY #120 tab Primary Care Physician: Care Physician,No Primary [Primary Care Provider] - Please follow up with your Primary Care Physician in: 1-2 weeks Please Follow Up With: psychiatrist When: call to schedule an appt Please Follow Up With: Amanda Daniels MD When: next week in the office Disposition: Home Minutes spent on discharge:: 30 Patient Condition:: Stable Medical Necessity - Tobacco Use Smoking Status: Never smoker Meaningful Use Info Meaningful Use Diagnoses (Choose all that apply): None applicable Code Visit Inpatient E&M: 93344 Disch Hosp
--- NOTE | 2018-01-04 10:26 | DS.PCM_ITS ---
Discharge Date and Diagnosis - Problem List Patient Problems: Active and Suspected Problems Gastritis (Acute) GERD (gastroesophageal reflux disease) (Acute) Fall (Acute) Alcohol intoxication with blood level over 0.3 (Acute) Nasal fracture (Acute) Alcohol withdrawal delirium, acute, hyperactive (Acute) Benzodiazepine withdrawal with delirium (Acute) Alcohol dependence (Acute) Benzodiazepine dependence (Acute) Date of Admission: 12/31/17 Date of Discharge: 01/04/18 - Primary Discharge Diagnosis Active and Suspected Problems Gastritis (Acute) GERD (gastroesophageal reflux disease) (Acute) Fall (Acute) Alcohol intoxication with blood level over 0.3 (Acute) Nasal fracture (Acute) Alcohol withdrawal delirium, acute, hyperactive (Acute) Benzodiazepine withdrawal with delirium (Acute) Alcohol dependence (Acute) Benzodiazepine dependence (Acute) - Secondary Discharge Diagnosis Chronic Problems Tobacco dependence due to cigarettes (Chronic) Cannabis use disorder, mild, abuse (Chronic) Bipolar disorder (Chronic) Seizure disorder (Chronic) Alcohol dependence - chronic Benzodiazepine dependence - chronic Hospital Course and Treatment Imaging Results: Clinical Impression(s) from Imaging Studies Brain CT 12/31/17 10:06 IMPRESSION: Normal unenhanced CT scan of the brain. Electronically Signed: Geo Gates MD at 10:52 EDT , Service support , Facial/Sinus 12/31/17 10:09 IMPRESSION: Nasal fracture. Electronically Signed: Geo Gates MD at 11:00 EDT , Service support , Abdomen Ultrasound 01/01/18 05:55 IMPRESSION: Normal right upper quadrant ultrasound examination. Electronically Signed: Devyn Greenberg MD at 10:01 EDT Tel , Service support , Dr. Amanda Daniels-general surgery Operations: None Procedures: Colonoscopy - normal, EGD - gastritis, change of the mucosa at the GE junction - biopsies pending at the time of discharge Summary of Care Provided: Patient is a 37-year-old female with a past medical history of bipolar disorder , chronic benzodiazepine use, tobacco dependence, alcoholism and cannabis use who presented to the ED at [facility] on 12/31/2017 complaining of nausea, vomiting, anxiety and restlessness. CBC at admission was unremarkable. Electrolytes, BUN and creatinine were all within normal limits. AST was mildly increased at 65 with an ALT of 47. Troponins was negative. Amylase and lipase were normal. Drug screen was positive for benzodiazepines and cannabinoids. Ethyl alcohol level was 310. CT scan of the head showed a nondisplaced nasal bone fracture and she was seen in consultation by Dr. Lobo and he recommended follow-up as an outpatient with him in the office post discharge. She was admitted to the [facility] program for medical stabilization for acute alcohol withdrawal. Dr. Daniels was consulted for complaint of epigastric pain history of black stool. She underwent EGD and colonoscopy on 01/[address] Daniels. The colonoscopy was normal. The EGD showed gastritis and a change of the mucosa at the GE junction. Biopsies were taking but, are pending at the time of DC. Carafate was added to her drug regimen for the next 2 weeks. The diet was advanced on to soft with no gastric stimulus and she was tolerating prior to DC. HGB remained stable at 10.4. On the date of discharge she was afebrile with stable vital signs. Blood pressures have been mildly elevated and she is complaining of anxiety. She was restarted on Valium 5 mg p.o. 4 times daily which is prescribed by her psychiatrist. She will follow up with Dr. Daniels in 1 week and will also follow up with Dr. Lobo. I suggested she find a PCP for her chronic medical needs and routine health maintenance. She will call her psychiatrist and request an appt to discuss adjusting her medication to get control of her anxiety. She has an appt scheduled for 01/05 for intake evaluation for alcohol rehab. Alert and oriented X 3 NAD appropriate Lungs - CTA Heart - RRR with no MM and no gallop Abd - soft, BS present, tender in the upper mid abdomen but, no guarding. No focal neurologic deficits This note was generated with Vaccsysation software. It may contain incorrect words, spelling, and punctuation that were not noted in checking the note before signing. Discharge Activity: Return to Normal Activity Call your doctor if you observe: Fever of 101 or Higher, Shortness of breath, Chest pain, Calf discomfort Home Medications: Medications to take at Discharge Diazepam [Valium] 5 mg PO 4X/DAY 12/31/17 Escitalopram Oxalate [Lexapro] 20 mg PO DAILY 12/31/17 Mirtazapine 15 mg PO QHS PRN 12/31/17 Pantoprazole Sodium [Protonix] 40 mg PO DAILY #30 tab 01/03/18 Sucralfate [Carafate] 1 gm PO 4X/DAY #120 tab 01/03/18 Nicotine [Nicoderm Cq] 21 mg TRANSDERM. DAILY #28 patch 01/04/18 Pantoprazole Sodium [Protonix] 40 mg PO DAILY #30 tab 01/04/18 Sucralfate [Carafate] 1 gm PO ACHS #56 tab 01/04/18 Following Prescrptions Were Given to Patient: Nicotine [Nicoderm Cq] 21 mg TRANSDERM. DAILY #28 patch Pantoprazole Sodium [Protonix] 40 mg PO DAILY #30 tab Pantoprazole Sodium [Protonix] 40 mg PO DAILY #30 tab Sucralfate [Carafate] 1 gm PO ACHS #56 tab Sucralfate [Carafate] 1 gm PO 4X/DAY #120 tab Primary Care Physician: Care Physician,No Primary [Primary Care Provider] - Please follow up with your Primary Care Physician in: 1-2 weeks Please Follow Up With: psychiatrist When: call to schedule an appt Please Follow Up With: Amanda Daniels MD When: next week in the office Disposition: Home Minutes spent on discharge:: 30 Patient Condition:: Stable Medical Necessity - Tobacco Use Smoking Status: Never smoker Meaningful Use Info Meaningful Use Diagnoses (Choose all that apply): None applicable Code Visit Inpatient E&M: 23856 Disch Hosp
[2018-01-04] MEDS: Multivitamins,Ther W-Minerals Tablet 1 TABLET PO (10:48)
[2018-01-04] MEDS: Thiamine Hydrochloride 100 MG Tablet PO (10:49)
[2018-01-04] MEDS: Pantoprazole Sodium 40 MG Tablet PO (10:52)
== END 2018-01-04 11:58 | disposition home or self-care (01) | DRG 435 ==
LOC: ED 14:33 → MS3 14:54
PROVIDERS: Hospitalist; Student in an Organized Health Care Education/Training Program; Surgery; Admitting Provider Internal Medicine; Emergency Provider Emergency Medicine; Visit Provider Internal Medicine
PROC: 0DJD8ZZ Inspection of Lower Intestinal Tract, Via Natural or Artificial Opening Endoscopic (ICD-10-PCS; CPT 45378; principal; 2018-01-03 09:55)
DX: F13.231 Sedative, hypnotic or anxiolytic dependence with withdrawal delirium (principal); F10.231 Alcohol dependence with withdrawal delirium; Y90.8 Blood alcohol level of 240 mg/100 ml or more; K70.10 Alcoholic hepatitis without ascites; K29.00 Acute gastritis without bleeding; K21.9 Gastro-esophageal reflux disease without esophagitis; E87.6 Hypokalemia; S02.2XXA Fracture of nasal bones, initial encounter for closed fracture; G40.909 Epilepsy, unspecified, not intractable, without status epilepticus; F31.9 Bipolar disorder, unspecified; F41.9 Anxiety disorder, unspecified; W19.XXXA Unspecified fall, initial encounter; Y93.9 Activity, unspecified; Y92.9 Unspecified place or not applicable; Y99.9 Unspecified external cause status; F17.210 Nicotine dependence, cigarettes, uncomplicated
CPT/HCPCS: 36415; 70450; 70486; 76705; 80048; 80053; 80307; 80320; 81001; 82150; 83690; 83735; 84484; 84703; 85025; 85610; 88305; 88313; 88342; 93005; 97802; 99282; J7030; J7120; A4216; G0480; J3490

== ENCOUNTER 2018-08-03 04:28 | Inpatient (IN) | payer MEDICAID, SELFPAY ==
[2018-08-03] VITALS (10 sets, daily range): BP systolic 122–184; BP diastolic 81–129; PULSE 84–147; RESP 14–20; TEMP 36.3–37; O2SAT 94–100; BMI 27.9; BMI 28.1; BMI 28.2
--- NOTE | 2018-08-03 04:49 | EKG12_ITS ---
Test Reason : HTN Blood Pressure : / mmHG Vent. Rate : 129 BPM Atrial Rate : 129 BPM P-R Int : 126 ms QRS Dur : 094 ms QT Int : 334 ms P-R-T Axes : 087 051 035 degrees QTc Int : 489 ms Sinus tachycardia Inferior infarct , age undetermined Possible Anterior infarct , age undetermined Abnormal ECG Confirmed by LIZETTE NO, MAVERICK ([id number]), state editor ESTELA CRAFT ([id number]) on 08/05/2018 2:36:23 PM Referred By: MATT Confirmed By:MAVERICK BAUER MD
[2018-08-03] MEDS: 0.9% Normal Saline 1,000 ML 1000 ML IV (05:11)
[2018-08-03] MEDS: LORazepam 2 MG/ML Syringe IV (05:11)
[2018-08-03 05:33] LABS: Absolute Neutrophil Count 2.5 X10^3/uL (2.0-7.7); Basophil# 0.05 X10^3/uL; Basophil% 1.1 % (0-1); Eosinophil# 0.06 X10^3/uL; Eosinophils% 1.3 % (0-5); Hematocrit 41.1 % (37-47); Hemoglobin 14.1 g/dl (12.0-15.0); Lymphocyte % 36.2 % (19-41); Mean Corp Hgb Conc 34.3 g/gl (32-36); Mean Corpuscular Hgb 29.3 pg (27.0-32.0); Mean Corpuscular Volume 85.3 fL (81-99); Mean Platelet Vol. 9.2 fl (6.2-12.0); Monocyte# 0.44 X10^3/uL; Monocyte% 9.4 % (0-10); Neutrophil # 2.45 X10^3/uL (2.7-7.7); Platelet Count 335 K/mm3 (150-450); RBC Distribution Width CV 16.9 % (11.6-14.6); RBC Distribution Width SD 52.6 fl (35.1-43.9); Red Blood Count 4.82 M/mm3 (4.2-5.4); White Blood Count 4.7 K/mm3 (4.4-11.0)
[2018-08-03 05:34] LABS: POSITIVE COUNT NO; POSITIVE DIFFERENTIAL NO; POSITIVE MORPHOLOGY NO
[2018-08-03 06:07] LABS: ALB/GLOB Ratio 0.8 RATIO (0.9-2.4); AST(SGOT) 52 U/L (15-37); Alanine Aminotransfer ALT/SGPT 46 U/L (13-56); Albumin, Serum 3.4 g/dL (3.2-5.0); Alkaline Phosphatase 113 U/L (45-117); Anion Gap 20 (5-15); BUN 4 mg/dL (7-18); BUN/Creat Ratio 3.8 RATIO (10-20); Calcium,Total 8.4 mg/dL (8.5-10.1); Chloride 97 mmol/L (98-107); Creatinine, Serum 1.04 mg/dL (0.55-1.02); EST Glomerular Filtration Rate 63 mL/min (>60); Est Glom Filt Rate - Afr Amer 76 mL/min (>60); Estimated Creatinine Clearance 58.58 ml/min; Globulin 4.5 g/dL (2.2-4.2); Glucose 134 mg/dL (74-106); Lipase 133 U/L (73-393); Potassium 3.4 mmol/L (3.5-5.1); Protein, Total 7.9 g/dL (6.4-8.2); Sodium Level 136 mmol/L (136-145)
--- NOTE | 2018-08-03 06:24 | ED.VISSUMM ---
- ER Visit Summary Date of Service: 08/03/18 Chief Complaint: I am a severe alcoholic. History of Present Illness: The patient is a 37 F who has previously been through alcohol detox. She last went through alcohol detox in December. She began drinking again over the summer. She states last night she had 4-Lokos and 4 beers. She states she has not drank since about 9 PM. She then developed nausea and vomiting. She states her throat is sore from vomiting. She states she had multiple seizures. Her mother witnessed 1 of these episodes in which she became unresponsive and fell and was unresponsive for a couple of seconds but then was able to answer questions. There was no tonic-clonic activity. She does have a history of alcohol withdrawal seizures. Physical Examination: Initial blood pressure 184/129 heart rate 147 respiratory rate 20 Patient is tremulous and anxious Heart regular rhythm tachycardia Lungs are clear Abdomen soft Alert Test Results: CBC unremarkable. BMP shows bicarbonate 19.0, anion gap 20. Labs otherwise unremarkable and alcohol is normal at 86. Emergency Department Course and Treatment: Patient was given IV Ativan with improvement of her blood pressure and heart rate. She was discussed with the hospitalist will be admitted for alcohol withdrawal. Treatment Plan: [] Disposition: Admit Impression: Alcohol withdrawal This note was generated with Flipora dictation software. It may contain incorrect words, spelling, and punctuation that were not noted in review of the chart prior to signing ED Disposition - Plan for ED Patient: Chief Complaint: ETOH Intox Referrals: Care Physician,No Primary [Primary Care Provider] -
[2018-08-03 06:42] LABS: Amphetamine Urine VISTA NEGATIVE (<1000 ng/mL); Barbiturate Urine VISTA NEGATIVE (< 200 ng/mL); Benzodiazepine Urine VISTA POSITIVE (< 200 ng/mL); Cocaine Urine VISTA NEGATIVE (< 300 ng/mL); Ecstacy Urine VISTA NEGATIVE (< 500 ng/mL); Methadone Urine VISTA NEGATIVE (< 300 ng/mL); PCP Urine VISTA NEGATIVE (< 25 ng/mL); THC Urine VISTA NEGATIVE (< 50 ng/mL); Vista UDS pH Range 5
--- NOTE | 2018-08-03 06:58 | PCM.HP.STD ---
Problem List (1) Alcoholism /alcohol abuse Status: Chronic (2) PTSD (post-traumatic stress disorder) Status: Chronic (3) Hypokalemia Status: Acute (4) Benzodiazepine dependence Status: Chronic (5) GERD (gastroesophageal reflux disease) Status: Chronic (6) Bipolar disorder Status: Chronic (7) Cannabis use disorder, mild, abuse Status: Chronic (8) Seizure disorder Status: Chronic Comment: alcohol withdrawal seizures (9) Tobacco dependence due to cigarettes Status: Chronic History of Present Illness Date of Admission: 08/03/18 Chief Complaint: pt called her mother and stated she had a seizure in her bathroom The patient is a 37 year old F with a past medical history of alcoholism beginning at the age of 11, bipolar disorder, PTSD, GERD and alcohol withdrawal seizures presented to the emergency department at [facility] on 08/03/2018 stating that she had been having seizures. None of these seizures were witnessed. She also tells me that she had a seizure at her mother's house however her mother stated that she had a syncopal episode and was out for only a brief time. She had no bowel or bladder incontinence and there was no tonic-clonic activity witnessed. Vital signs of presentation to the emergency room were temperature 97.4, pulse rate 147, blood pressure 184/2129, respiratory rate 20 and she was 94-97% saturated on room air. Lab was remarkable for a low potassium at 3.4 and a serum bicarb of 19. BUN is 4 and creatinine is 1.04. Tox screen was positive for benzodiazepines and her ethyl alcohol level was 86. She was admitted to the [facility] at [facility] in December and started drinking again in February and has been drinking every day. She also has been taking Valium but less than she is prescribed. She would like admitted to the [facility] program for medical stabilization for alcohol withdrawal. She has been to in the past but quit going because she was unable to stop drinking. she went to a counsellor in [place] after the last admission but tells me that that person is no longer in [place] and she is not currently going to or getting counselling. She has only every been sober twice since she started drinking and that was when she was . She has an 8 YO and a 10YO and is currently in a custody gan with her ex-. Her mother states that she is never alone with the children...the mother is always there with her when the children are around. Past Medical History Past Medical History (Chronic Problems): Chronic Problems Alcoholism /alcohol abuse (Chronic) PTSD (post-traumatic stress disorder) (Chronic) Tobacco dependence due to cigarettes (Chronic) GERD (gastroesophageal reflux disease) (Chronic) Cannabis use disorder, mild, abuse (Chronic) Bipolar disorder (Chronic) Seizure disorder (Chronic) alcohol withdrawal seizures Benzodiazepine dependence (Chronic) Allergies Penicillins Allergy (Verified 08/03/18 04:33) Anaphylaxis Home Medications: Ambulatory Orders Medication Instructions Recorded Diazepam [Valium] 5 mg PO 4X/DAY 12/31/17 Escitalopram Oxalate [Lexapro] 20 mg PO DAILY 12/31/17 Surgical History: - - Cyst on the left ovary removed laparoscopically ?2, Psychiatric History: - - Bipolar ATHLETIC TEAM PHYSICIAN History: No pertinent ATHLETIC TEAM PHYSICIAN history Lives: Alone Smoking Status: Former smoker Tobacco Use: Cigarettes, - - and cannabis Alcohol: Heavy Drugs: - - denies at this time - *Family History Maternal History Items: No pertinent history Review of Systems Constitutional: Denies: Chills, Fever, Weight Change HEENT: Denies: Head Aches, Sinus Congestion, Sinus Drainage Cardiovascular: Denies: Chest Pain, Palpitations Respiratory: Denies: Cough, Shortness of breath at rest, Sputum production Gastrointestinal: Denies: Abdominal Pain, Nausea, Vomiting Genitourinary: Denies: Dysuria Musculoskeletal: Denies: Joint Pain, Joint Tenderness Skin: Denies: Rash, Wounds Neurological: Reports: Seizures - this is questionable.....pt reports seizures but they were unwitnessed. Denies: Slurred speech, Confusion, Focal weakness, Headaches, Numbness, Tingling Psychiatric: Denies: Anxiety, Depression, Homicidal Ideations, Suicidal Ideations Endocrine: Denies: Change in Body Habitus Hematologic/ Lymphatic: Denies: Easy Bruising, Easy Bleeding, Hx of blood clot VTE Information - Inpt Only VTE Present on Admission: No VTE Mechan Device Prophylaxis: None VTE Pharm Prophylaxis ordered?: No Reason prophylaxis not ordered:: Procedure Not Indicated Patient Problems: Active and Suspected Problems Hypokalemia (Acute) - Physical Exam General: Alert, Oriented x3, Cooperative HEENT: Atraumatic, PERRLA, EOMI, Normocephalic Neck: Supple, No JVD, Negative Carotid Bruits Lungs: Clear to auscultation, Normal air movement Cardiovascular: Regular rate, No murmurs Abdomen: Bowel Sounds Present, Soft, Non Tender Extremities: No edema, Capillary Refill Less than 3 Seconds Skin: No rashes, No breakdown Musculoskeletal: No Tenderness to Palpation of Joints or Extremities Neurological: Cranial nerves II-XII grossly intact Psych/Mental Status: Normal Affect, Appropriate Vital Signs Temp Pulse Resp BP Pulse Ox 97.4 F L 107 H 14 150/113 H 97 08/03/18 04:29 08/03/18 06:55 08/03/18 06:55 08/03/18 06:55 08/03/18 06:55 Oxygen Delivery Method Room Air Weight: 152 lb 12.485 oz Body Mass Index (BMI) 27.9 Laboratory Tests Past 24 Hrs 08/03/18 08/03/18 08/03/18 05:15 05:15 05:15 WBC 4.7 RBC 4.82 Hgb 14.1 Hct 41.1 MCV 85.3 MCH 29.3 MCHC 34.3 RDW 16.9 H RDW Differential 52.6 H Plt Count 335 MPV 9.2 Immature Gran % (Auto) 0.000 Neut % (Auto) 52.0 Lymph % (Auto) 36.2 Titus % (Auto) 9.4 Eos % (Auto) 1.3 Baso % (Auto) 1.1 H Absolute Neuts (auto) 2.5 Absolute Lymphs (auto) 1.70 Total Counted Not Reportable Sodium 136 Potassium 3.4 L Chloride 97 L Carbon Dioxide 19.0 L Anion Gap 20 H BUN 4 L Creatinine 1.04 H Estim Creat Clear Calc 58.58 Est GFR (MDRD) Af Amer 76 Est GFR (MDRD) Non-Af 63 BUN/Creatinine Ratio 3.8 L Glucose 134 H Calcium 8.4 L Total Bilirubin 0.60 AST 52 H ALT 46 Alkaline Phosphatase 113 Total Protein 7.9 Albumin 3.4 Globulin 4.5 H Albumin/Globulin Ratio 0.8 L Lipase 133 Urine Opiates Screen Urine Methadone Screen Ur Barbiturates Screen Ur Phencyclidine Scrn Ur Amphetamines Screen U Methamphetamin-MDMA U Benzodiazepines Scrn Urine Cocaine Screen U Cannabinoids Screen Ur Drug Screen Comment Ethyl Alcohol 86.0 08/03/18 06:15 WBC RBC Hgb Hct MCV MCH MCHC RDW RDW Differential Plt Count MPV Immature Gran % (Auto) Neut % (Auto) Lymph % (Auto) Titus % (Auto) Eos % (Auto) Baso % (Auto) Absolute Neuts (auto) Absolute Lymphs (auto) Total Counted Sodium Potassium Chloride Carbon Dioxide Anion Gap BUN Creatinine Estim Creat Clear Calc Est GFR (MDRD) Af Amer Est GFR (MDRD) Non-Af BUN/Creatinine Ratio Glucose Calcium Total Bilirubin AST ALT Alkaline Phosphatase Total Protein Albumin Globulin Albumin/Globulin Ratio Lipase Urine Opiates Screen NEGATIVE Urine Methadone Screen NEGATIVE Ur Barbiturates Screen NEGATIVE Ur Phencyclidine Scrn NEGATIVE Ur Amphetamines Screen NEGATIVE U Methamphetamin-MDMA NEGATIVE U Benzodiazepines Scrn POSITIVE H Urine Cocaine Screen NEGATIVE U Cannabinoids Screen NEGATIVE Ur Drug Screen Comment Ethyl Alcohol Assessment/Plan All Active Problems Hypokalemia (Acute) Gastritis (Acute) Fall (Acute) Alcohol intoxication with blood level over 0.3 (Acute) Nasal fracture (Acute) Alcohol withdrawal delirium, acute, hyperactive (Acute) Benzodiazepine withdrawal with delirium (Acute) Alcohol dependence (Acute) Impressions 1. ? ETOH withdrawal seizure - unwitnessed 2. long standing alcoholism - started drinking at the age of 11 3. Bipolar disorder 4. reported hx of PTSD 5. Benzodiazepine dependence 6. hypokalemia admit to the [facility] - ETOH protocol initiated - Librium taper supplement the potassium recheck a BMP in the AM May need to taper the Valium more slowly than over 72 hours Catapres for HTN and tachycardia - came down down with just Ativan in the ER OP therapy does not seem to be effective for this pt.......I suspect she would be better in a sober living house or in in-pt rehab Code Visit Inpatient E&M: 19268 Init Hosp L2
--- NOTE | 2018-08-03 07:10 | HP.PCM_ITS ---
Problem List (1) Alcoholism /alcohol abuse Status: Chronic (2) PTSD (post-traumatic stress disorder) Status: Chronic (3) Hypokalemia Status: Acute (4) Benzodiazepine dependence Status: Chronic (5) GERD (gastroesophageal reflux disease) Status: Chronic (6) Bipolar disorder Status: Chronic (7) Cannabis use disorder, mild, abuse Status: Chronic (8) Seizure disorder Status: Chronic Comment: alcohol withdrawal seizures (9) Tobacco dependence due to cigarettes Status: Chronic History of Present Illness Date of Admission: 08/03/18 Chief Complaint: pt called her mother and stated she had a seizure in her bathroom The patient is a 37 year old F with a past medical history of alcoholism beginn ing at the age of 11, bipolar disorder, PTSD, GERD and alcohol withdrawal seizures presented to the emergency department at [facility] on 08/03/2018 stating that she had been having seizures. None of these seizures were witnessed. She also tells me that she had a seizure at her mother's house however her mother stated that she had a syncopal episode and was out for only a brief time. She had no bowel or bladder incontinence and there was no tonic- clonic activity witnessed. Vital signs of presentation to the emergency room were temperature 97.4, pulse rate 147, blood pressure 184/2129, respiratory rate 20 and she was 94-97% saturated on room air. Lab was remarkable for a low potassium at 3.4 and a serum bicarb of 19. BUN is 4 and creatinine is 1.04. Tox screen was positive for benzodiazepines and her ethyl alcohol level was 86. She was admitted to the [facility] in December and started drinking again in February and has been drinking every day. She also has been taking Valium but less than she is prescribed. She would like admitted to the [facility] for medical stabilization for alcohol withdrawal. She has been to AA in the past but quit going because she was unable to stop drinking. she went to a counsellor in [place] after the last admission but tells me that that person is no longer in [place] and she is not currently going to or getting counselling. She has only every been sober twice since she started drinking and that was when she was . She has an 8 YO and a 10YO and is currently in a custody gan with her ex-. Her mother states that she is never alone with the children...the mother is always there with her when the children are around. Past Medical History Past Medical History (Chronic Problems): Chronic Problems Alcoholism /alcohol abuse (Chronic) PTSD (post-traumatic stress disorder) (Chronic) Tobacco dependence due to cigarettes (Chronic) GERD (gastroesophageal reflux disease) (Chronic) Cannabis use disorder, mild, abuse (Chronic) Bipolar disorder (Chronic) Seizure disorder (Chronic) alcohol withdrawal seizures Benzodiazepine dependence (Chronic) Allergies Penicillins Allergy (Verified 08/03/18 04:33) Anaphylaxis Home Medications: Ambulatory Orders Medication Instructions Recorded Diazepam [Valium] 5 mg PO 4X/DAY 12/31/17 Escitalopram Oxalate [Lexapro] 20 mg PO DAILY 12/31/17 Surgical History: - - Cyst on the left ovary removed laparoscopically ?2, C- section Psychiatric History: - - Bipolar [employer] History: No pertinent [employer] history Lives: Alone Smoking Status: Former smoker Tobacco Use: Cigarettes, - - and cannabis Alcohol: Heavy Drugs: - - denies at this time - *Family History Maternal History Items: No pertinent history Review of Systems Constitutional: Denies: Chills, Fever, Weight Change HEENT: Denies: Head Aches, Sinus Congestion, Sinus Drainage Cardiovascular: Denies: Chest Pain, Palpitations Respiratory: Denies: Cough, Shortness of breath at rest, Sputum production Gastrointestinal: Denies: Abdominal Pain, Nausea, Vomiting Genitourinary: Denies: Dysuria Musculoskeletal: Denies: Joint Pain, Joint Tenderness Skin: Denies: Rash, Wounds Neurological: Reports: Seizures - this is questionable.....pt reports seizures but they were unwitnessed. Denies: Slurred speech, Confusion, Focal weakness, Headaches, Numbness, Tingling Psychiatric: Denies: Anxiety, Depression, Homicidal Ideations, Suicidal Ideations Endocrine: Denies: Change in Body Habitus Hematologic/ Lymphatic: Denies: Easy Bruising, Easy Bleeding, Hx of blood clot VTE Information - Inpt Only VTE Present on Admission: No VTE Mechan Device Prophylaxis: None VTE Pharm Prophylaxis ordered?: No Reason prophylaxis not ordered:: Procedure Not Indicated Patient Problems: Active and Suspected Problems Hypokalemia (Acute) - Physical Exam General: Alert, Oriented x3, Cooperative HEENT: Atraumatic, PERRLA, EOMI, Normocephalic Neck: Supple, No JVD, Negative Carotid Bruits Lungs: Clear to auscultation, Normal air movement Cardiovascular: Regular rate, No murmurs Abdomen: Bowel Sounds Present, Soft, Non Tender Extremities: No edema, Capillary Refill Less than 3 Seconds Skin: No rashes, No breakdown Musculoskeletal: No Tenderness to Palpation of Joints or Extremities Neurological: Cranial nerves II-XII grossly intact Psych/Mental Status: Normal Affect, Appropriate Vital Signs Temp Pulse Resp BP Pulse Ox 97.4 F L 107 H 14 150/113 H 97 08/03/18 04:29 08/03/18 06:55 08/03/18 06:55 08/03/18 06:55 08/03/18 06:55 Oxygen Delivery Method Room Air Weight: 152 lb 12.485 oz Body Mass Index (BMI) 27.9 Laboratory Tests Past 24 Hrs 08/03/18 08/03/18 08/03/18 05:15 05:15 05:15 WBC 4.7 RBC 4.82 Hgb 14.1 Hct 41.1 MCV 85.3 MCH 29.3 MCHC 34.3 RDW 16.9 H RDW Differential 52.6 H Plt Count 335 MPV 9.2 Immature Gran % (Auto) 0.000 Neut % (Auto) 52.0 Lymph % (Auto) 36.2 [place] % (Auto) 9.4 Eos % (Auto) 1.3 Baso % (Auto) 1.1 H Absolute Neuts (auto) 2.5 Absolute Lymphs (auto) 1.70 Total Counted Not Reportable Sodium 136 Potassium 3.4 L Chloride 97 L Carbon Dioxide 19.0 L Anion Gap 20 H BUN 4 L Creatinine 1.04 H Estim Creat Clear Calc 58.58 Est GFR (MDRD) Af Amer 76 Est GFR (MDRD) Non-Af 63 BUN/Creatinine Ratio 3.8 L Glucose 134 H Calcium 8.4 L Total Bilirubin 0.60 AST 52 H ALT 46 Alkaline Phosphatase 113 Total Protein 7.9 Albumin 3.4 Globulin 4.5 H Albumin/Globulin Ratio 0.8 L Lipase 133 Urine Opiates Screen Urine Methadone Screen Ur Barbiturates Screen Ur Phencyclidine Scrn Ur Amphetamines Screen U Methamphetamin-MDMA U Benzodiazepines Scrn Urine Cocaine Screen U Cannabinoids Screen Ur Drug Screen Comment Ethyl Alcohol 86.0 08/03/18 06:15 WBC RBC Hgb Hct MCV MCH MCHC RDW RDW Differential Plt Count MPV Immature Gran % (Auto) Neut % (Auto) Lymph % (Auto) [place] % (Auto) Eos % (Auto) Baso % (Auto) Absolute Neuts (auto) Absolute Lymphs (auto) Total Counted Sodium Potassium Chloride Carbon Dioxide Anion Gap BUN Creatinine Estim Creat Clear Calc Est GFR (MDRD) Af Amer Est GFR (MDRD) Non-Af BUN/Creatinine Ratio Glucose Calcium Total Bilirubin AST ALT Alkaline Phosphatase Total Protein Albumin Globulin Albumin/Globulin Ratio Lipase Urine Opiates Screen NEGATIVE Urine Methadone Screen NEGATIVE Ur Barbiturates Screen NEGATIVE Ur Phencyclidine Scrn NEGATIVE Ur Amphetamines Screen NEGATIVE U Methamphetamin-MDMA NEGATIVE U Benzodiazepines Scrn POSITIVE H Urine Cocaine Screen NEGATIVE U Cannabinoids Screen NEGATIVE Ur Drug Screen Comment Ethyl Alcohol Assessment/Plan All Active Problems Hypokalemia (Acute) Gastritis (Acute) Fall (Acute) Alcohol intoxication with blood level over 0.3 (Acute) Nasal fracture (Acute) Alcohol withdrawal delirium, acute, hyperactive (Acute) Benzodiazepine withdrawal with delirium (Acute) Alcohol dependence (Acute) Impressions 1. ? ETOH withdrawal seizure - unwitnessed 2. long standing alcoholism - started drinking at the age of 11 3. Bipolar disorder 4. reported hx of PTSD 5. Benzodiazepine dependence 6. hypokalemia admit to [facility] - ETOH protocol initiated - Librium taper supplement the potassium recheck a BMP in the AM May need to taper the Valium more slowly than over 72 hours Catapres for HTN and tachycardia - came down down with just Ativan in the ER OP therapy does not seem to be effective for this pt.......I suspect she would be better in a sober living house or in in-pt rehab Code Visit Inpatient E&M: 49349 Init Hosp L2
[2018-08-03] MEDS: Ondansetron 4 MG/2 ML Vial IV (07:31)
--- NOTE | 2018-08-03 07:45 | EKG12_ITS ---
Test Reason : HYPOKALEMIA Blood Pressure : / mmHG Vent. Rate : 077 BPM Atrial Rate : 077 BPM P-R Int : 150 ms QRS Dur : 092 ms QT Int : 444 ms P-R-T Axes : 067 054 052 degrees QTc Int : 502 ms Normal sinus rhythm Prolonged QT Abnormal ECG When compared with ECG of 03-AUG-2018 05:01, MANUAL COMPARISON REQUIRED, DATA IS UNCONFIRMED Confirmed by LIZETTE NO, MAVERICK ([id number]), make up editor ESTELA CRAFT ([id number]) on 08/09/2018 9:07:20 AM Referred By: ROBER Confirmed By:MAVERICK BAUER MD
[2018-08-03 08:10] LABS: Pregnancy, Serum, hCG Quali. NEGATIVE Negative (0-9 Nonpreg)
[2018-08-03 08:11] LABS: Magnesium 1.8 mg/dL (1.6-2.6)
[2018-08-03 08:14] LABS: Phosphorus 2.5 mg/dL (2.5-4.9)
--- NOTE | 2018-08-03 09:00 | NURSING ---
Patient wants to wait to take vitamins/supplements until her nausea is under better control. She is aware that she just had Zofran at 0730 in the ED and this RN cannot give her more at this time. She is willing to try to take her Librium and Catapres at this time in an attempt to control her anxiety, sweats and elevated blood pressure. Will continue to monitor.
[2018-08-03] MEDS: cloNIDine HCl 0.1 MG Tablet PO ×3 (09:14→21:14)
[2018-08-03] MEDS: chlordiazePOXIDE 25 MG Capsule PO ×3 (09:15→19:52)
[2018-08-03] MEDS: Lactated Ringers 1,000 ML 125 ML IV (09:15)
--- NOTE | 2018-08-03 11:01 | NURSING ---
Aziza Reagan with [facility] in to see pt per pt request to discuss outpt therapy after d/c
--- NOTE | 2018-08-03 11:23 | NURSING ---
Patient is resting quietly in bed at this time. Eyes are closed. Respirations are unlabored. Will monitor.
[2018-08-03] MEDS: Folic Acid 1 MG Tablet PO (13:54)
[2018-08-03] MEDS: Multivitamins,Therapeutic Tablet 1 TABLET PO (13:54)
[2018-08-03] MEDS: Thiamine Hydrochloride 100 MG Tablet PO (13:54)
[2018-08-03] MEDS: Escitalopram Oxalate 20 MG Tablet PO (13:54)
[2018-08-03] MEDS: Mag Hydrox/Al Hydrox/Simeth 30 ML UDC PO (13:54)
[2018-08-03] MEDS: LORazepam 2 MG/ML Syringe 1 MG IV ×2 (15:07→21:13)
[2018-08-03] MEDS: 0.9% NaCl Peripheral Flush Adult/Peds IV (15:08)
[2018-08-03] MEDS: traZODone 50 MG Tablet PO (21:13)
[2018-08-04] VITALS (10 sets, daily range): BP systolic 112–124; BP diastolic 68–98; PULSE 70–80; RESP 16–18; TEMP 36.4–37; O2SAT 97–100
[2018-08-04] MEDS: chlordiazePOXIDE 25 MG Capsule PO ×3 (01:14→17:36)
[2018-08-04] MEDS: Mag Hydrox/Al Hydrox/Simeth 30 ML UDC PO ×2 (02:46→20:01)
[2018-08-04] MEDS: LORazepam 2 MG/ML Syringe 1 MG IV ×2 (02:47→14:14)
[2018-08-04] MEDS: cloNIDine HCl 0.1 MG Tablet PO ×3 (05:49→21:41)
[2018-08-04 06:53] LABS: Anion Gap 9 (5-15); BUN 3 mg/dL (7-18); Calcium,Total 8.6 mg/dL (8.5-10.1); Chloride 102 mmol/L (98-107); EST Glomerular Filtration Rate 66 mL/min (>60); Est Glom Filt Rate - Afr Amer 80 mL/min (>60); Estimated Creatinine Clearance 58.12 ml/min; Glucose 114 mg/dL (74-106); Potassium 4.3 mmol/L (3.5-5.1); Sodium Level 135 mmol/L (136-145)
--- NOTE | 2018-08-04 07:35 | PCM.PN.HOSP ---
Patient Problems: Active and Suspected Problems Hypokalemia (Acute) Subjective: Patient overnight states that she still has intermittent tremors and is very anxious. She states she also has burning sensation in her throat and is requesting something additional for reflux. She states that the Mylanta did help but is still having some symptoms. Patient denies fevers, chills, nausea, emesis, abdominal pain, chest pain or dyspnea. Objective: Physical Examination: General: awake, alert, oriented x 3 and cooperative, seated upright in bed in no apparent distress, recently applied makeup. Skin: normal color, turgor, no icterus, cyanosis. HEENT: AT/NC, EOMI, PERRLA, MMM. Lungs: CTA bilaterally, moderate effort, mild decrease BL bases, no rales, ronchi or wheezing. Heart: Regular rate and rhythm; no gallop, rub audible, mild anterior chest TTP. Abdomen: soft, overweight, NTTP, ND, normal BS. Extremities: no cyanosis, clubbing, or edema. Neurological: patient awake, alert, oriented x 3; cognitive function intact; pupils equally reactive to light and accomodation; cranial nerves II-XII grossly normal, moving all 4 extremities, no focal deficits, strength mildly globally decreased. Psychiatric: affect appears mildly fatigued, notes she is anxious but does not appear anxious, no acute evidence of depressive feelings. Vitals/I&O's: Vital Signs Temp Pulse Resp BP Pulse Ox 98.6 F 72 18 116/78 99 08/04/18 05:52 08/04/18 05:52 08/04/18 05:52 08/04/18 05:52 08/04/18 05:44 Oxygen Delivery Method Room Air Weight: 153 lb 0.013 oz Body Mass Index (BMI) 28.1 Intake and Output for Last 24 Hours 08/02/18 08/03/18 08/04/18 23:59 23:59 23:59 Intake Total 1546 / 1546 340 / 340 Balance 1546 / 1546 340 / 340 Laboratory Results 08/03/18 05:15: Serum , Qual NEGATIVE 08/03/18 05:15: Magnesium 1.8 08/03/18 05:15: Phosphorus 2.5 08/04/18 06:15: Sodium 135 L, Potassium 4.3, Chloride 102, Carbon Dioxide 24.0, Anion Gap 9, BUN 3 L, Creatinine 1.00, Estim Creat Clear Calc 58.12, Est GFR (MDRD) Af Amer 80, Est GFR (MDRD) Non-Af 66, BUN/Creatinine Ratio 3.0 L, Glucose 114 H, Calcium 8.6 Current Medications Acetaminophen (Tylenol) 500 mg PO Q4H PRN PRN PRN Reason: Temp > 100.4 F Al Hydroxide/Mg Hydroxide (Mylanta Ii) 30 ml PO Q6H PRN PRN PRN Reason: dyspesia Last Admin: 08/04/18 02:46 Dose: 30 ml Bisacodyl (Dulcolax) 10 mg RECTAL DAILY PRN PRN Reason: Constipation Chlordiazepoxide (Librium) 50 mg PO Q8H [facility]; Taper Stop: 08/06/18 09:59 Last Admin: 08/04/18 01:14 Dose: 50 mg Clonidine (Catapres) 0.1 mg PO TID [facility] Last Admin: 08/04/18 05:49 Dose: 0.1 mg Dicyclomine HCl (Bentyl) 20 mg PO Q6H PRN PRN PRN Reason: abdominal discomfort Escitalopram Oxalate (Lexapro) 20 mg PO DAILY [facility] Last Admin: 08/03/18 13:54 Dose: 20 mg [facility] Last Admin: 08/03/18 13:54 Dose: 1 mg Hydroxyzine Pamoate (Vistaril Pamoate Capsule) 50 mg PO Q6H PRN PRN PRN Reason: Mild Anxiety (score 1/3) Ibuprofen (Motrin) 600 mg PO Q8H PRN PRN PRN Reason: Mild-Moderate Pain (1-5/10) Loperamide HCl (Imodium) 2 - 4 mg PO UD PRN PRN Reason: LOOSE STOOLS Lorazepam (Ativan) 2 mg IV X1 PRN PRN Reason: Seizure Lorazepam (Ativan) 1 mg IV Q4H PRN PRN PRN Reason: Severe Anxiety Last Admin: 08/04/18 02:47 Dose: 1 mg Methocarbamol (Methocarbamol) 750 mg PO Q6H PRN PRN PRN Reason: Muscle Aches Multivit[facility]amin) [facility] Last Admin: 08/03/18 13:54 Dose: 1 tablet Nutritional Formula (Lactose Free) (Ensure Enlive) 120 ml PO 4X/DAY [facility] Last Admin: 08/03/18 21:13 Dose: 120 ml Ondansetron HCl (Zofran Odt) 4 mg PO Q6H PRN PRN PRN Reason: NAUSEA Potassium Chloride (K[facility]Dur) [facility] Stop: 08/04/18 17:01 Last Admin: 08/03/18 18:24 Dose: Not Given Quetiapine Fumarate (Seroquel) 25 mg PO Q6H PRN PRN PRN Reason: agitation, anxiety Senna (Senokot) 1 tablet PO QHS PRN PRN Reason: Constipation Sodium Chloride () 5 - 15 ml IV UD PRN PRN Reason: SALINE FLUSH Last Admin: 08/03/18 15:08 Dose: 10 ml Thiamine HCl ([facility]itamin B1) [facility] Last Admin: 08/03/18 13:54 Dose: 100 mg Trazodone HCl (Desyrel) 50 mg PO QHS [facility] Last Admin: 08/03/18 21:13 Dose: 50 mg Medical Necessity - Tobacco Use Smoking Status: Former smoker Tobacco Use: Vapor, - Assessment/Plan All Active Problems Hypokalemia (Acute) Gastritis (Acute) Fall (Acute) Alcohol intoxication with blood level over 0.3 (Acute) Nasal fracture (Acute) Alcohol withdrawal delirium, acute, hyperactive (Acute) Benzodiazepine withdrawal with delirium (Acute) Alcohol dependence (Acute) The patient is a 37 y/o F w/ PMHx: Overweight, Seizure Disorder, Tobacco use, Cannabis usage, BZD dependence, Bipolar Disorder, PTSD, EtOH Abuse who presents to the [facility] ED on 08/03/18 with history of possible seizure activity, notable history of stating she has had seizures but never witnessed in addition to questionable syncopal event recently, minimal LOC timeline, normal resumption of mental status following. (1) Acute EtOH Withdrawal w/ ? DT Seizure activity with underlying history of ? Seizure disorder: Admitted to [place], seizure precautionson, routine labs obtained, potassium supplemented, mag and phos normal. Initiated 1 dinner so early and continued on [facility] protocol with taper course of librium, as needed Seroquel, Catapres, Bentyl, Vistaril, IV fluids, IV antiemetics, Tylenol as needed for pain. Once patient clinically improved and completion of taper nearing will plan [facility] assistance for transition to next level of rehabilitation care. Maintain on CIWA protocol. Maintain on folic acid, thiamine, multivitamin supplementation. (2) History of BZD Dependence: Hold home valium regimen given usage sedative regimen and PRN IV ativan. (3) Anxiety and Depression/Bipolar Disorder/PTSD/Suspected Borderline Personality Disorder: Continue home lexapro regimen. Given history, patient regimen incomplete, would benefit from mood stabilizer additionally. (4) ? Seizure disorder: Not on AED outpatient, suspect DT associated, continue to monitor, maintain on seizure precautions. (5) Tobacco Abuse: Encouraged cessation, inpatient consultation per RT, NR if desired. (6) GERD: Protonix added, PRN mylanta. (7) DVT Prophylaxis: MARY, low risk, ambulation. Code Visit Inpatient E&M: 86587 Subs Hosp L2
[2018-08-04] MEDS: Multivitamins,Therapeutic Tablet 1 TABLET PO (08:39)
[2018-08-04] MEDS: Thiamine Hydrochloride 100 MG Tablet PO (08:39)
[2018-08-04] MEDS: Escitalopram Oxalate 20 MG Tablet PO (08:39)
[2018-08-04] MEDS: Folic Acid 1 MG Tablet PO (08:40)
[2018-08-04] MEDS: Pantoprazole Sodium 20 MG Tablet PO ×2 (09:36→21:43)
[2018-08-04] MEDS: QUEtiapine 25 MG Tablet PO ×2 (12:32→20:01)
[2018-08-04] MEDS: 0.9% NaCl Peripheral Flush Adult/Peds IV (14:14)
[2018-08-04] MEDS: Loperamide 2 MG Capsule PO (20:01)
[2018-08-04] MEDS: traZODone 50 MG Tablet PO (21:41)
[2018-08-05] MEDS: chlordiazePOXIDE 25 MG Capsule PO ×3 (01:31→21:47)
[2018-08-05 01:33] VITALS: BP 109/75; PULSE 75; RESP 16; TEMP 36.4; O2SAT 99
[2018-08-05] MEDS: LORazepam 2 MG/ML Syringe 1 MG IV ×4 (03:47→20:36)
[2018-08-05] MEDS: 0.9% NaCl Peripheral Flush Adult/Peds IV ×5 (03:47→20:50)
[2018-08-05 06:00] VITALS: BP 115/74; PULSE 86; RESP 16; TEMP 36.5
[2018-08-05] MEDS: cloNIDine HCl 0.1 MG Tablet PO ×3 (06:25→21:47)
--- NOTE | 2018-08-05 07:16 | PN_ITS ---
Patient Problems: Active and Suspected Problems Hypokalemia (Acute) Subjective: Patient with no acute events overnight per self and per nursing report. She states feeling markedly improved since even the day prior and states that alcohol withdrawal symptoms have nearly resolved. She is up this morning and has showered and states she is eager to continue on sobriety pathway. She states that her reflux which was severe yesterday has since improved and requesting continuation of current regimen. Patient questions this morning include possibility in the next step of care for benzodiazepine taper in addition to consideration of Campral versus Antabuse with note to her that these would be questions for the physician at her outpatient prolonged therapy facility. Patient denies fevers, chills, nausea, emesis, abdominal pain, chest pain or dyspnea. Objective: Physical Examination: General: awake, alert, oriented x 3 and cooperative, seated upright in bed in no apparent distress, calm and relaxed this a.m. Skin: normal color, turgor, no icterus, cyanosis. HEENT: AT/NC, EOMI, PERRLA, MMM. Lungs: CTA bilaterally, moderate effort, mild decrease BL bases, no rales, ronchi or wheezing. Heart: Regular rate and rhythm; no gallop, rub audible, mild anterior chest TTP. Abdomen: soft, overweight, NTTP, ND, normal BS. Extremities: no cyanosis, clubbing, or edema. Neurological: patient awake, alert, oriented x 3; cognitive function intact; pupils equally reactive to light and accomodation; cranial nerves II-XII grossly normal, moving all 4 extremities, no focal deficits, strength improved, mildly globally decreased. Psychiatric: affect appears improved, normal, no acute evidence of depressive feelings. Vitals/I&O's: Vital Signs Temp Pulse Resp BP Pulse Ox 97.7 F L 86 16 115/74 99 08/05/18 06:00 08/05/18 06:00 08/05/18 06:00 08/05/18 06:00 08/05/18 01:33 Oxygen Delivery Method Room Air Weight: 153 lb 0.013 oz Body Mass Index (BMI) 28.1 Intake and Output for Last 24 Hours 08/03/18 08/04/18 08/05/18 23:59 23:59 23:59 Intake Total 1546 / 1546 340 / 340 600 / 600 Balance 1546 / 1546 340 / 340 600 / 600 Current Medications Acetaminophen (Tylenol) 500 mg PO Q4H PRN PRN PRN Reason: Temp > 100.4 F Al Hydroxide/Mg Hydroxide (Mylanta Ii) 30 ml PO Q6H PRN PRN PRN Reason: dyspesia Last Admin: 08/04/18 20:01 Dose: 30 ml Bisacodyl (Dulcolax) 10 mg RECTAL DAILY PRN PRN Reason: Constipation Chlordiazepoxide (Librium) 50 mg PO Q8H [facility]; Taper Stop: 08/06/18 09:59 Last Admin: 08/05/18 01:31 Dose: 50 mg Clonidine (Catapres) 0.1 mg PO TID [facility] Last Admin: 08/05/18 06:25 Dose: 0.1 mg Dicyclomine HCl (Bentyl) 20 mg PO Q6H PRN PRN PRN Reason: abdominal discomfort Escitalopram Oxalate (Lexapro) 20 mg PO DAILY [facility] Last Admin: 08/04/18 08:39 Dose: 20 mg [facility] Last Admin: 08/04/18 08:40 Dose: 1 mg Hydroxyzine Pamoate (Vistaril Pamoate Capsule) 50 mg PO Q6H PRN PRN PRN Reason: Mild Anxiety (score 1/3) Ibuprofen (Motrin) 600 mg PO Q8H PRN PRN PRN Reason: Mild-Moderate Pain (1-5/10) Loperamide HCl (Imodium) 2 - 4 mg PO UD PRN PRN Reason: LOOSE STOOLS Last Admin: 08/04/18 20:01 Dose: 4 mg Lorazepam (Ativan) 2 mg IV X1 PRN PRN Reason: Seizure Lorazepam (Ativan) 1 mg IV Q4H PRN PRN PRN Reason: Severe Anxiety Last Admin: 08/05/18 03:47 Dose: 1 mg Methocarbamol (Methocarbamol) 750 mg PO Q6H PRN PRN PRN Reason: Muscle Aches Multivit[facility] ([facility]amin) [facility] Last Admin: 08/04/18 08:39 Dose: 1 tablet Nutritional Formula (Lactose Free) (Ensure Enlive) 120 ml PO 4X/DAY [facility] Last Admin: 08/04/18 21:41 Dose: Not Given Ondansetron HCl (Zofran Odt) 4 mg PO Q6H PRN PRN PRN Reason: NAUSEA Pantoprazole Sodium (Protonix) 20 mg PO BID [facility] Last Admin: 08/04/18 21:43 Dose: 20 mg Quetiapine Fumarate (Seroquel) 25 mg PO Q6H PRN PRN PRN Reason: agitation, anxiety Last Admin: 08/04/18 20:01 Dose: 25 mg Senna (Senokot) 1 tablet PO QHS PRN PRN Reason: Constipation Sodium Chloride () 5 - 15 ml IV UD PRN PRN Reason: SALINE FLUSH Last Admin: 08/05/18 03:47 Dose: 10 ml Thiamine HCl (Vitamin B1) 100 mg PO DAILYCM [facility] Last Admin: 08/04/18 08:39 Dose: 100 mg Trazodone HCl (Desyrel) 50 mg PO QHS [facility] Last Admin: 08/04/18 21:41 Dose: 50 mg Medical Necessity - Tobacco Use Smoking Status: Former smoker Tobacco Use: Vapor, - Assessment/Plan All Active Problems Hypokalemia (Acute) Gastritis (Acute) Fall (Acute) Alcohol intoxication with blood level over 0.3 (Acute) Nasal fracture (Acute) Alcohol withdrawal delirium, acute, hyperactive (Acute) Benzodiazepine withdrawal with delirium (Acute) Alcohol dependence (Acute) The patient is a 37 y/o F w/ PMHx: Overweight, Seizure Disorder, Tobacco use, Cannabis usage, BZD dependence, Bipolar Disorder, PTSD, EtOH Abuse who presents to the [facility] ED on 08/03/18 with history of possible seizure activity, notable history of stating she has had seizures but never witnessed in addition to questionable syncopal event recently, minimal LOC timeline, normal resumption of mental status following. (1) Acute EtOH Withdrawal w/ ? DT Seizure activity with underlying history of ? Seizure disorder: Admitted to [place], seizure precautionson, routine labs obtained, potassium supplemented, mag and phos normal. Initiated 1 dinner so early and continued on [facility] service protocol with taper course of librium, as needed Seroquel, Catapres, Bentyl, Vistaril, IV fluids, IV antiemetics, Tylenol as needed for pain. Once patient clinically improved and completion of taper nearing will plan [facility] assistance for transition to next level of rehabilitation care. Maintain on CIWA protocol. Maintain on folic acid, thiamine, multivitamin supplementation. Plan discharge to outpatient facility 08/06/18 following completion of taper with patient encouragement to discuss her current questions regarding Campral versus Antabuse therapy as next step. (2) History of BZD Dependence: During admission had held Valium regimen but will restart upon discharge as hold on sedate of medications at that time as complete taper expected with patient encouragement to consider benzodiazepine taper with physician at outpatient facility. (3) Anxiety and Depression/Bipolar Disorder/PTSD/Suspected Borderline Personality Disorder: Continue home lexapro regimen. Given history, patient regimen incomplete, would benefit from mood stabilizer additionally with encouragement to follow-up with psychiatry/psychology. (4) ? Seizure disorder: Not on AED outpatient, suspect DT associated, continue to monitor, maintain on seizure precautions. (5) Tobacco Abuse: Encouraged cessation, inpatient consultation per RT, NR if desired. (6) GERD: Protonix added and given notable improvement will continue upon discharge, PRN mylanta. (7) DVT Prophylaxis: MARY, low risk, ambulation. Code Visit Inpatient E&M: 24467 Subs Hosp L2
[2018-08-05 08:39] VITALS: BP 105/73; PULSE 74; RESP 18; TEMP 36.5
[2018-08-05] MEDS: Thiamine Hydrochloride 100 MG Tablet PO (08:44)
[2018-08-05] MEDS: Escitalopram Oxalate 20 MG Tablet PO (08:44)
[2018-08-05] MEDS: Multivitamins,Therapeutic Tablet 1 TABLET PO (08:44)
[2018-08-05] MEDS: Folic Acid 1 MG Tablet PO (08:44)
[2018-08-05] MEDS: Pantoprazole Sodium 20 MG Tablet PO ×2 (08:49→21:47)
[2018-08-05 18:00] VITALS: RESP 18
[2018-08-05 20:10] VITALS: BP 123/78; PULSE 76; RESP 18; TEMP 36.4
[2018-08-05 20:20] VITALS: O2SAT 97
--- NOTE | 2018-08-05 20:30 | NURSING ---
Pt refusing seizure pads for seizure precautions, suction set up at bedside.
[2018-08-05] MEDS: traZODone 50 MG Tablet PO (21:47)
[2018-08-06 01:34] VITALS: BP 130/91; PULSE 59; RESP 18; TEMP 36.6
[2018-08-06 01:38] VITALS: O2SAT 99
[2018-08-06] MEDS: Mag Hydrox/Al Hydrox/Simeth 30 ML UDC PO (01:41)
[2018-08-06] MEDS: QUEtiapine 25 MG Tablet PO (01:41)
[2018-08-06 05:56] VITALS: BP 120/74; PULSE 66; RESP 18; TEMP 36.5
[2018-08-06 06:01] VITALS: O2SAT 99
[2018-08-06] MEDS: LORazepam 2 MG/ML Syringe 1 MG IV (06:09)
[2018-08-06] MEDS: 0.9% NaCl Peripheral Flush Adult/Peds IV (06:09)
[2018-08-06] MEDS: cloNIDine HCl 0.1 MG Tablet PO (06:09)
--- NOTE | 2018-08-06 09:36 | DCINST_ITS ---
- Discharge Diagnoses Current Active Problems: Current Active and Chronic Problems (1) Acute EtOH Withdrawal w/ Possible DT Seizure activity with underlying history of Possible Seizure disorder (2) History of BZD Dependence (3) Anxiety and Depression/Bipolar Disorder/PTSD (4) Possible Seizure disorder (5) Tobacco Abuse (6) GERD You will use the following diet at home:: No restrictions Your food should be the consistency of: Regular Your liquids should be the consistency of: Regular/Thin Discharge Activity: - - May not drive until cleared per her treatment program. Call your doctor if you observe: Fever of 101 or Higher, Inability to urinate, Inability to have a bowel movement, Shortness of breath, Dizziness, Fainting spells, Chest pain, Uncontrolled pain Instructions: Alcohol Withdrawal: What to Expect, Understanding Alcoholism, Alcoholism: Myths and Facts, The Impact of Alcoholism, Alcoholism: How to be Part of the Solution, Alcoholism: Resources for Family and Friends, Alcoholism: Getting Help, What Is GERD?, Lifestyle Changes for Controlling GERD, Medications for GERD, Tips to Control Acid Reflux Additional Instructions: Please follow-up as discussed with the Physician at your treatment program to discuss initiation of benzodiazepine taper which you noted interested in starting. Allergies/Adverse Reactions: Allergies Penicillins Allergy (Verified 08/03/18 04:33) Anaphylaxis Medications to take at Discharge Diazepam [Valium] 5 mg PO 4X/DAY 12/31/17 Escitalopram Oxalate [Lexapro] 20 mg PO DAILY 12/31/17 Prazosin HCl 5 capsule PO DAILY 08/03/18 Folic Acid 1 mg PO DAILYCM #30 tablet 08/06/18 Multivitamins,Therapeutic [Multivitamin] 1 tablet PO DAILYCM #30 tablet 08/06/18 Pantoprazole Sodium [Protonix] 20 mg PO BID #60 tablet 08/06/18 Thiamine Hydrochloride [Vitamin B1] 100 mg PO DAILYCM #30 tablet 08/06/18 traZODone [Desyrel] 50 mg PO QHS #10 tablet 08/06/18 The following prescriptions were given: Folic Acid 1 mg PO DAILYCM #30 tablet Multivitamins,Therapeutic [Multivitamin] 1 tablet PO DAILYCM #30 tablet Thiamine Hydrochloride [Vitamin B1] 100 mg PO DAILYCM #30 tablet traZODone [Desyrel] 50 mg PO QHS #10 tablet Pantoprazole Sodium [Protonix] 20 mg PO BID #60 tablet Primary Care Physician: Care Physician,No Primary [Primary Care Provider] - Please follow up with your Primary Care Physician in: Please establish and follow-up with PCP within 1-2 weeks. Test Results: Test results from this visit will be discussed in further detail at your follow- up appointment, if applicable. Please Follow Up With: [facility] When: Please continue w/ next step in [facility] plan of treatment care. Proposed Discharge Date: 08/06/18
--- NOTE | 2018-08-06 09:36 | PCM.DC.SUM ---
Discharge Date and Diagnosis - Problem List Patient Problems: Active and Suspected Problems Hypokalemia (Acute) Date of Admission: 08/03/18 Date of Discharge: 08/06/18 - Primary Discharge Diagnosis Active and Suspected Problems (1) Acute EtOH Withdrawal w/ ? DT Seizure activity with underlying history of ? Seizure disorder (2) History of BZD Dependence (3) Anxiety and Depression/Bipolar Disorder/PTSD/Suspected Borderline Personality Disorder (4) ? Seizure disorder (5) Tobacco Abuse (6) GERD - Secondary Discharge Diagnosis Chronic Problems Alcoholism /alcohol abuse (Chronic) PTSD (post-traumatic stress disorder) (Chronic) Tobacco dependence due to cigarettes (Chronic) GERD (gastroesophageal reflux disease) (Chronic) Cannabis use disorder, mild, abuse (Chronic) Bipolar disorder (Chronic) Seizure disorder (Chronic) alcohol withdrawal seizures Benzodiazepine dependence (Chronic) Hospital Course and Treatment Operations: None Procedures: None Summary of Care Provided: The patient is a 37 y/o F w/ PMHx: Overweight, Seizure Disorder, Tobacco use, Cannabis usage, BZD dependence, Bipolar Disorder, PTSD, EtOH Abuse who presented to the [facility] ED on 08/03/18 with history of possible seizure activity, notable history of stating she has had seizures but never witnessed in addition to questionable syncopal event recently, minimal LOC timeline, normal resumption of mental status following. Admitted to [place], seizure precautions, routine labs obtained, potassium supplemented, mag and phos normal. Initiated and continued on [facility] service protocol with tapered course of librium, as needed Seroquel, Catapres, Bentyl, Vistaril, IV fluids, IV antiemetics, Tylenol as needed for pain. Patient clinically improved and completion of taper performed w/ transition per [facility] plan to next level of rehabilitation care. Maintained on CIWA protocol. Maintained on folic acid, thiamine, multivitamin supplementation. Discharged to outpatient facility 08/06/18 following completion of taper with patient encouragement to discuss her current questions regarding Campral versus Antabuse therapy as next step. Additionally, patient noted desire to discuss possible BZD taper as well which she will perform with physician at her next prolonged treatment program. Patient w/ Anxiety and Depression/Bipolar Disorder/PTSD/Suspected Borderline Personality Disorder, continued on her home lexapro regimen; however, noted that given her history, patient regimen incomplete, would benefit from mood stabilizer additionally with encouragement to follow-up with psychiatry/psychology. During admission patient noted GERD symptoms with PPI started w/ improvement. Patient discharged to next level of rehabilitation in stable condition w/ also recommended PCP establishment/follow-up. DAY OF DISCHARGE PROGRESS NOTE: Subjective: Patient without acute event overnight per self and nursing report. Patient notes no further EtOH withdrawal symptoms. Patient denies fever, chills, nausea, emesis, abdominal pain, chest pain or dyspnea. Patient agreeable to discharge to next level or rehabilitation care. Patient will be discharged with follow-up with primary care physician within 3-5 days in addition to continued [facility] plan of care. Discussed GERD and improved w/ regimen, will send rx at discharge. Objective: T 97.8, heart rate 66, BP 120/74, respiratory rate 18, 90% on room air. Physical Examination: General: awake, alert, oriented x 3 and cooperative, seated upright in bed in no apparent distress. Skin: normal color, turgor, no icterus, cyanosis. HEENT: AT/NC, EOMI, PERRLA, MMM. Lungs: CTA bilaterally, moderate effort, mild decrease BL bases, no rales, ronchi or wheezing. Heart: Regular rate and rhythm; no gallop, rub audible. Abdomen: soft, overweight, NTTP, ND, normal BS. Extremities: no cyanosis, clubbing, or edema. Neurological: patient awake, alert, oriented x 3; cognitive function intact; pupils equally reactive to light and accomodation; cranial nerves II-XII grossly normal, moving all 4 extremities, no focal deficits, strength improved, preserved. Psychiatric: affect appears normal, no acute evidence of depressive feelings. Assessment and Plan: Please see hospital summary above. Patient Problems: Active and Suspected Problems Hypokalemia (Acute) - Physical Exam Vital Signs Temp Pulse Resp BP Pulse Ox 97.7 F L 66 18 120/74 99 08/06/18 05:56 08/06/18 05:56 08/06/18 05:56 08/06/18 05:56 08/06/18 06:01 Oxygen Delivery Method Room Air Weight: 153 lb 0.013 oz Body Mass Index (BMI) 28.1 Intake and Output for Last 24 Hours 08/04/18 08/05/18 08/06/18 23:59 23:59 23:59 Intake Total 340 / 340 2200 / 2200 800 / 800 Balance 340 / 340 2200 / 2200 800 / 800 Discharge Activity: - - May not drive until cleared per her treatment program. Call your doctor if you observe: Fever of 101 or Higher, Inability to urinate, Inability to have a bowel movement, Shortness of breath, Dizziness, Fainting spells, Chest pain, Uncontrolled pain Home Medications: Medications to take at Discharge Diazepam [Valium] 5 mg PO 4X/DAY 12/31/17 Escitalopram Oxalate [Lexapro] 20 mg PO DAILY 12/31/17 Prazosin HCl 5 capsule PO DAILY 08/03/18 Folic Acid 1 mg PO DAILYCM #30 tablet 08/06/18 Multivitamins,Therapeutic [Multivitamin] 1 tablet PO DAILYCM #30 tablet 08/06/18 Pantoprazole Sodium [Protonix] 20 mg PO BID #60 tablet 08/06/18 Thiamine Hydrochloride [Vitamin B1] 100 mg PO DAILYCM #30 tablet 08/06/18 traZODone [Desyrel] 50 mg PO QHS #10 tablet 08/06/18 Following Prescrptions Were Given to Patient: Folic Acid 1 mg PO DAILYCM #30 tablet Multivitamins,Therapeutic [Multivitamin] 1 tablet PO DAILYCM #30 tablet Thiamine Hydrochloride [Vitamin B1] 100 mg PO DAILYCM #30 tablet traZODone [Desyrel] 50 mg PO QHS #10 tablet Pantoprazole Sodium [Protonix] 20 mg PO BID #60 tablet Primary Care Physician: Care Physician,No Primary [Primary Care Provider] - Please follow up with your Primary Care Physician in: Please establish and follow-up with PCP within 1-2 weeks. Please Follow Up With: [facility] When: Please continue w/ next step in [facility] plan of treatment care. Patient Instructions: What Is GERD?, Lifestyle Changes for Controlling GERD, Medications for GERD, Tips to Control Acid Reflux, Understanding Alcoholism, Alcoholism: Myths and Facts, The Impact of Alcoholism, Alcoholism: How to be Part of the Solution, Alcoholism: Resources for Family and Friends, Alcoholism: Getting Help, Alcohol Withdrawal: What to Expect Disposition: Home Minutes spent on discharge:: 35 Patient Condition:: Fair Medical Necessity - Tobacco Use Smoking Status: Former smoker Tobacco Use: Vapor, - Meaningful Use Info Meaningful Use Diagnoses (Choose all that apply): None applicable Code Visit Inpatient E&M: 58936 Disch Hosp
--- NOTE | 2018-08-06 09:43 | DS.PCM_ITS ---
Discharge Date and Diagnosis - Problem List Patient Problems: Active and Suspected Problems Hypokalemia (Acute) Date of Admission: 08/03/18 Date of Discharge: 08/06/18 - Primary Discharge Diagnosis Active and Suspected Problems (1) Acute EtOH Withdrawal w/ ? DT Seizure activity with underlying history of ? Seizure disorder (2) History of BZD Dependence (3) Anxiety and Depression/Bipolar Disorder/PTSD/Suspected Borderline Pe rsonality Disorder (4) ? Seizure disorder (5) Tobacco Abuse (6) GERD - Secondary Discharge Diagnosis Chronic Problems Alcoholism /alcohol abuse (Chronic) PTSD (post-traumatic stress disorder) (Chronic) Tobacco dependence due to cigarettes (Chronic) GERD (gastroesophageal reflux disease) (Chronic) Cannabis use disorder, mild, abuse (Chronic) Bipolar disorder (Chronic) Seizure disorder (Chronic) alcohol withdrawal seizures Benzodiazepine dependence (Chronic) Hospital Course and Treatment Operations: None Procedures: None Summary of Care Provided: The patient is a 37 y/o F w/ PMHx: Overweight, Seizure Disorder, Tobacco use, Cannabis usage, BZD dependence, Bipolar Disorder, PTSD, EtOH Abuse who presented to the [facility] ED on 08/03/18 with history of possible seizure activity, notable history of stating she has had seizures but never witnessed in addition to ques tionable syncopal event recently, minimal LOC timeline, normal resumption of mental status following. Admitted to [place], seizure precautions, routine labs obtained, potassium supplemented, mag and phos normal. Initiated and continued on [facility] service protocol with tapered course of librium, as needed Seroquel, Catapres, Bentyl, Vistaril, IV fluids, IV antiemetics, Tylenol as needed for pain. Patient clinically improved and completion of taper performed w/ transition per [facility] plan to next level of rehabilitation care. Maintained on CIWA protocol. Maintained on folic acid, thiamine, multivitamin supplementation. Discharged to outpatient facility 08/06/18 following completion of taper with patient encouragement to discuss her current questions regarding Campral versus Antabuse therapy as next step. Additionally, patient noted desire to discuss possible BZD taper as well which she will perform with physician at her next prolonged treatment program. Patient w/ Anxiety and Depression/Bipolar Disorder/PTSD/Suspected Borderline Personality Disorder, continued on her home lexapro regimen; however, noted that given her history, patient regimen incomplete, would benefit from mood stabilizer additionally with encouragement to follow-up with psychiatry/psychology. During admission patient noted GERD symptoms with PPI started w/ improvement. Patient discharged to next level of rehabilitation in stable condition w/ also recommended PCP establishment/follow- up. DAY OF DISCHARGE PROGRESS NOTE: Subjective: Patient without acute event overnight per self and nursing report. Patient notes no further EtOH withdrawal symptoms. Patient denies fever, chills, nausea, emesis, abdominal pain, chest pain or dyspnea. Patient agreeable to discharge to next level or rehabilitation care. Patient will be discharged with follow-up with primary care physician within 3-5 days in addition to continued [facility] plan of care. Discussed GERD and improved w/ regimen, will send rx at discharge. Objective: T 97.8, heart rate 66, BP 120/74, respiratory rate 18, 90% on room air. Physical Examination: General: awake, alert, oriented x 3 and cooperative, seated upright in bed in no apparent distress. Skin: normal color, turgor, no icterus, cyanosis. HEENT: AT/NC, EOMI, PERRLA, MMM. Lungs: CTA bilaterally, moderate effort, mild decrease BL bases, no rales, ronchi or wheezing. Heart: Regular rate and rhythm; no gallop, rub audible. Abdomen: soft, overweight, NTTP, ND, normal BS. Extremities: no cyanosis, clubbing, or edema. Neurological: patient awake, alert, oriented x 3; cognitive function intact; pupils equally reactive to light and accomodation; cranial nerves II-XII grossly normal, moving all 4 extremities, no focal deficits, strength improved, preserved. Psychiatric: affect appears normal, no acute evidence of depressive feelings. Assessment and Plan: Please see hospital summary above. Patient Problems: Active and Suspected Problems Hypokalemia (Acute) - Physical Exam Vital Signs Temp Pulse Resp BP Pulse Ox 97.7 F L 66 18 120/74 99 08/06/18 05:56 08/06/18 05:56 08/06/18 05:56 08/06/18 05:56 08/06/18 06:01 Oxygen Delivery Method Room Air Weight: 153 lb 0.013 oz Body Mass Index (BMI) 28.1 Intake and Output for Last 24 Hours 08/04/18 08/05/18 08/06/18 23:59 23:59 23:59 Intake Total 340 / 340 2200 / 2200 800 / 800 Balance 340 / 340 2200 / 2200 800 / 800 Discharge Activity: - - May not drive until cleared per her treatment program. Call your doctor if you observe: Fever of 101 or Higher, Inability to urinate, Inability to have a bowel movement, Shortness of breath, Dizziness, Fainting spells, Chest pain, Uncontrolled pain Home Medications: Medications to take at Discharge Diazepam [Valium] 5 mg PO 4X/DAY 12/31/17 Escitalopram Oxalate [Lexapro] 20 mg PO DAILY 12/31/17 Prazosin HCl 5 capsule PO DAILY 08/03/18 Folic Acid 1 mg PO DAILYCM #30 tablet 08/06/18 Multivitamins,Therapeutic [Multivitamin] 1 tablet PO DAILYCM #30 tablet 08/06/18 Pantoprazole Sodium [Protonix] 20 mg PO BID #60 tablet 08/06/18 Thiamine Hydrochloride [Vitamin B1] 100 mg PO DAILYCM #30 tablet 08/06/18 traZODone [Desyrel] 50 mg PO QHS #10 tablet 08/06/18 Following Prescrptions Were Given to Patient: Folic Acid 1 mg PO DAILYCM #30 tablet Multivitamins,Therapeutic [Multivitamin] 1 tablet PO DAILYCM #30 tablet Thiamine Hydrochloride [Vitamin B1] 100 mg PO DAILYCM #30 tablet traZODone [Desyrel] 50 mg PO QHS #10 tablet Pantoprazole Sodium [Protonix] 20 mg PO BID #60 tablet Primary Care Physician: Care Physician,No Primary [Primary Care Provider] - Please follow up with your Primary Care Physician in: Please establish and follow-up with PCP within 1-2 weeks. Please Follow Up With: [facility] When: Please continue w/ next step in [facility] plan of treatment care. Patient Instructions: What Is GERD?, Lifestyle Changes for Controlling GERD, Medications for GERD, Tips to Control Acid Reflux, Understanding Alcoholism, Alcoholism: Myths and Facts, The Impact of Alcoholism, Alcoholism: How to be Part of the Solution, Alcoholism: Resources for Family and Friends, Alcoholism: Getting Help, Alcohol Withdrawal: What to Expect Disposition: Home Minutes spent on discharge:: 35 Patient Condition:: Fair Medical Necessity - Tobacco Use Smoking Status: Former smoker Tobacco Use: Vapor, - Meaningful Use Info Meaningful Use Diagnoses (Choose all that apply): None applicable Code Visit Inpatient E&M: 75917 Disch Hosp
[2018-08-06] MEDS: Pantoprazole Sodium 20 MG Tablet PO (10:02)
[2018-08-06] MEDS: Thiamine Hydrochloride 100 MG Tablet PO (10:03)
[2018-08-06] MEDS: Folic Acid 1 MG Tablet PO (10:03)
[2018-08-06] MEDS: Multivitamins,Therapeutic Tablet 1 TABLET PO (10:03)
[2018-08-06] MEDS: Escitalopram Oxalate 20 MG Tablet PO (10:03)
[2018-08-06 10:06] VITALS: BP 102/56; PULSE 77; RESP 18; TEMP 36.6
--- NOTE | 2018-08-06 12:10 | NURSING ---
This Nurse printed out information on Alcohol Withdrawal: What to Expect, Understanding Alcoholism, Alcoholism: Myths and Facts, The Impact of Alcoholism, Alcoholism: How to be Part of the Solution, Alcoholism: Resources for Family and Friends, Alcoholism: Getting Help, What Is GERD?, Lifestyle Changes for Controlling GERD, Medications for GERD, Tips to Control Acid Reflux per Discharge Instructions.
== END 2018-08-06 11:25 | disposition home or self-care (01) | DRG 775 ==
LOC: ED 05:13 → PCU 06:49 → MS2 07:17 → MS3 08-05 17:30
PROVIDERS: Admitting Provider Internal Medicine; Emergency Provider Emergency Medicine; Visit Provider Family Medicine
DX: F10.231 Alcohol dependence with withdrawal delirium (principal); G40.89 Other seizures; F31.9 Bipolar disorder, unspecified; E87.6 Hypokalemia; K21.9 Gastro-esophageal reflux disease without esophagitis; F43.10 Post-traumatic stress disorder, unspecified; G40.909 Epilepsy, unspecified, not intractable, without status epilepticus; F12.90 Cannabis use, unspecified, uncomplicated; F60.3 Borderline personality disorder; F13.20 Sedative, hypnotic or anxiolytic dependence, uncomplicated; Y90.4 Blood alcohol level of 80-99 mg/100 ml
CPT/HCPCS: 36415; 80048; 80053; 80307; 80320; 83690; 83735; 84100; 84703; 85025; 93005; 97802; 99285; J7030; J7120; A4216; G0480; J2405

== ENCOUNTER 2019-03-21 00:33 | Emergency (ER) | payer MEDICAID, SELFPAY ==
[2019-03-21 00:37] VITALS: BP 143/103; PULSE 88; RESP 16; TEMP 36.6; O2SAT 96; BMI 23.1
[2019-03-21 00:42] VITALS: RESP 16
--- NOTE | 2019-03-21 01:26 | ED.DCSUM_ITS ---
- ER Visit Summary Date of Service: 03/21/19 Chief Complaint: I am an alcoholic History of Present Illness: The patient is a 38 F who presents with alcohol intoxication. The patient wants to be admitted for detox. She has previously been admitted for detox and the last admission was in July. However she is currently severely intoxicated. She states she has had 2 seizures over the last 2 weeks because she is out of her Valium. She is prescribed Valium chronically but mother states she takes most of it in the first couple of weeks and then runs out. Physical Examination: Blood pressure 143/103 vitals otherwise normal Patient appears clinically intoxicated Tearful Heart regular rate and rhythm Lungs clear Abdomen soft Patient has some bruising to left upper arm Test Results: Not indicated Emergency Department Course and Treatment: Patient is currently clinically intoxicated. She is not in alcohol withdrawal at this time. She does not meet admission criteria. I explained this to the patient and family. She was given a prescription for short course of her Valium and advised to contact the prescriber. Patient will be discharged. Treatment Plan: [] Disposition: Discharge Impression: Acute alcohol intoxication This note was generated with [employer] dictation software. It may contain incorrect words, spelling, and punctuation that were not noted in review of the chart prior to signing ED Disposition - Plan for ED Patient: Referrals: Care Physician,No Primary [Primary Care Provider] -
--- NOTE | 2019-03-21 01:28 | ED.DEP ---
ED Disposition - Plan for ED Patient: Instructions: Alcohol Intoxication Prescriptions: Diazepam [Valium] 10 mg PO Q12H PRN PRN #6 tab PRN Reason: Anxiety Prescription Printed Referrals: Care Physician,No Primary [Primary Care Provider] -
--- NOTE | 2019-03-21 02:20 | ED.RN ---
INTO DISCHARGE PATIENT AND MOTHER STATES I CANNOT TAKE HER HOME LIKE THIS. SHE NEEDS HELP. REASSURED MOTHER THAT SHE DOES NOT MEET [facility] CRITERIA OR MEDICAL ADMISSION. [facility] CALLED. ONE [facility] ON PHONE WITH MOTHER.
[2019-03-21 03:01] VITALS: RESP 18
[2019-03-21 03:05] VITALS: TEMP 36.6; BMI 23.1
== END 2019-03-21 03:06 | disposition home or self-care (01) ==
LOC: ED 02:02
PROVIDERS: Emergency Provider Emergency Medicine
DX: F10.229 Alcohol dependence with intoxication, unspecified (principal); I10 Essential (primary) hypertension; K21.9 Gastro-esophageal reflux disease without esophagitis; Z79.899 Other long term (current) drug therapy
CPT/HCPCS: 99283

== ENCOUNTER 2020-01-07 19:45 | Inpatient (IN) | payer MEDICAID, SELFPAY ==
[2020-01-07 19:46] VITALS: BP 144/96; PULSE 115; RESP 17; TEMP 36.6; O2SAT 97; BMI 23.9
[2020-01-07] MEDS: Ondansetron 4 MG/2 ML Vial IV (20:17)
[2020-01-07] MEDS: Phenobarbital 32.4 MG Tablet 97.2 MG PO (20:17)
[2020-01-07 20:22] LABS: Absolute Lymphocyte Count 1.79 X10^3/uL (0.83-4.51); Absolute Neutrophil Count 3.1 X10^3/uL (2.0-7.7); Basophil# 0.06 X10^3/uL; Basophil% 1.1 % (0-1); Eosinophil# 0.03 X10^3/uL; Eosinophils% 0.5 % (0-5); Lymphocyte # 1.79 X10^3/ul (4.0); Lymphocyte % 32.6 % (19-41); Mean Corp Hgb Conc 32.5 g/dL (32-36); Mean Corpuscular Hgb 25.7 pg (27.0-32.0); Mean Corpuscular Volume 79.2 fL (81-99); Mean Platelet Vol. 9.2 fl (6.2-12.0); Monocyte# 0.47 X10^3/uL; Monocyte% 8.6 % (0-10); NRBC Flagged by Analyzer 0 % (0-5); Neutrophil # 3.13 X10^3/uL (2.7-7.7); POSITIVE MORPHOLOGY YES; Platelet Count 393 K/mm3 (150-450); RBC Distribution Width CV 20.6 % (11.6-14.6); RBC Distribution Width SD 56.9 fl (35.1-43.9); Red Blood Count 5.05 M/mm3 (4.2-5.4); White Blood Count 5.5 K/mm3 (4.4-11.0)
[2020-01-07 20:28] LABS: Differential Indicated SCAN CRITERIA MET
[2020-01-07 20:48] LABS: ALB/GLOB Ratio 0.9 RATIO (0.9-2.4); AST(SGOT) 19 U/L (15-37); Alanine Aminotransfer ALT/SGPT 40 U/L (13-56); Albumin, Serum 3.8 g/dL (3.2-5.0); Alkaline Phosphatase 69 U/L (45-117); Anion Gap 10 (5-15); BUN 7 mg/dL (7-18); BUN/Creat Ratio 8.1 RATIO (10-20); Calcium,Total 8.5 mg/dL (8.5-10.1); Chloride 109 mmol/L (98-107); Creatinine, Serum 0.86 mg/dL (0.55-1.02); EST Glomerular Filtration Rate 78 mL/min (>60); Est Glom Filt Rate - Afr Amer 94 mL/min (>60); Estimated Creatinine Clearance 72.65 ml/min; Globulin 4.1 g/dL (2.2-4.2); Glucose 142 mg/dL (74-106); Potassium 3.3 mmol/L (3.5-5.1); Protein, Total 7.9 g/dL (6.4-8.2); Sodium Level 145 mmol/L (136-145)
[2020-01-07 20:50] LABS: Internal QC Validated? YES +Cl - CLEAR BKGD
[2020-01-07 20:51] LABS: Pregnancy, Serum, hCG Quali. NEGATIVE Negative
[2020-01-07 20:53] LABS: Anisocytosis 1+; Differential Comment SCANNED
[2020-01-07 20:54] VITALS: BP 163/104; PULSE 118; RESP 16; TEMP 36.6; O2SAT 97
[2020-01-07 21:21] LABS: Amphetamine Urine VISTA NEGATIVE (<1000 ng/mL); Barbiturate Urine VISTA NEGATIVE (< 200 ng/mL); Benzodiazepine Urine VISTA POSITIVE (< 200 ng/mL); Cocaine Urine VISTA NEGATIVE (< 300 ng/mL); Ecstacy Urine VISTA NEGATIVE (< 500 ng/mL); Methadone Urine VISTA NEGATIVE (< 300 ng/mL); PCP Urine VISTA NEGATIVE (< 25 ng/mL); THC Urine VISTA NEGATIVE (< 50 ng/mL); Vista UDS pH Range 6
--- NOTE | 2020-01-07 21:24 | HP.PCM_ITS ---
Problem List (1) Alcohol withdrawal Status: Acute Qualifiers: Complication of substance-induced condition: uncomplicated Qualified Code(s): F10.230 - Alcohol dependence with withdrawal, uncomplicated (2) Benzodiazepine withdrawal Status: Acute Qualifiers: Complication of substance-induced condition: uncomplicated Qualified Code(s): F13.230 - Sedative, hypnotic or anxiolytic dependence with withdrawal, uncomplicated (3) Opiate withdrawal Status: Acute History of Present Illness Date of Admission: 01/07/20 Chief Complaint: Alcohol withdrawal, opiate withdrawal, benzodiazepine withdrawal The patient is a 39 year old F seen in the emergency room at [facility] with chief complaint of desiring detox from alcohol, benzos, and tramadol. Patient states that she has been through detox approximately 3 years ago-this was inpatient detox, she admits to drinking approximately 1-1/2 L a day of full-strength vodka, her last drink was today. Last time she took any tramadol was yesterday, she does also take Valium which is prescribed by her psychiatrist. Patient states she gets the tramadol online and its mailed to her house. She states she gets it from a [place] source. Patient is having symptoms of anxiety, tremor, and nervousness. Tox screen was performed and was positive for benzodiazepines, patient's alcohol level was 298, potassium level was 3.3. Patient will be admitted to [place] [address] for detox services, orders were placed using the template for benzodiazepine, alcohol, and opiate withdrawal. Patient received phenobarbital in the emergency room. Past Medical History Past Medical History (Chronic Problems): Chronic Problems (This Medical Record has been edited. Action required.) Alcoholism /alcohol abuse (Chronic) PTSD (post-traumatic stress disorder) (Chronic) Tobacco dependence due to cigarettes (Chronic) GERD (gastroesophageal reflux disease) (Chronic) Cannabis use disorder, mild, abuse (Chronic) Bipolar disorder (Chronic) Seizure disorder (Chronic) alcohol withdrawal seizures Alcohol dependence (Chronic) Benzodiazepine dependence (Chronic) Allergies Penicillins Allergy (Verified 01/07/20 19:46) Anaphylaxis Home Medications: Ambulatory Orders Medication Instructions Recorded Diazepam [Valium] 5 mg PO 4X/DAY 12/31/17 Escitalopram Oxalate [Lexapro] 20 mg PO DAILY 12/31/17 Prazosin HCl 5 capsule PO DAILY 08/03/18 traZODone [Desyrel] 50 mg PO QHS #10 tablet 08/06/18 Surgical History: - - Cyst on the left ovary removed laparoscopically ?2, C-se ction Psychiatric History: Anxiety, - - Bipolar LOGISTICS SERVICE REPRESENTATIVE History: No pertinent LOGISTICS SERVICE REPRESENTATIVE history Lives: With Family Smoking Status: Former smoker Tobacco Use: Non-smoker Alcohol: Heavy Drugs: - - Tramadol and Valium - *Family History Maternal History Items: No pertinent history Paternal History Items: Stroke, - - Patient states her father was an addict-he used cocaine Review of Systems Constitutional: Denies: Anorexia, Chills, Fever, Night Sweats, Malaise, Weakness, Weight Change, Fatigue Eyes: Denies: Cataracts, Conjunctivae Inflammation, Double vision, Drainage HEENT: Denies: Difficulty Swallowing, Dysphasia, Ear Pain, Eye Pain, Hearing Changes, Nasal bleeding, Nasal Congestion, Post Nasal Drip Cardiovascular: Denies: Chest Pain, Claudication, Chest Pressure, Chest Tightness, Edema, Heaviness, Palpitations, Paroxysmal Noc. Dyspnea Respiratory: Denies: Cough, Hemoptysis, Pleuritic Pain, Shortness of Breath, Shortness of breath at rest, Shortness of breath upon exertion, Sputum production Gastrointestinal: Reports: Abdominal Pain - Chronic abdominal pain. Denies: Constipation, Diarrhea, Hematemesis, Hematochezia, Nausea, Melena, Vomiting Genitourinary: Denies: Dysuria, Frequency, Hematuria, Hesitancy, Urgency Gynecological: Denies: Breast symptoms Musculoskeletal: Denies: Back Pain, Foot Pain, Hand Pain, Joint Pain, Joint stiffness, Joint swelling, Joint Tenderness, Leg Pain Skin: Denies: Dryness, Jaundice, Pruritis, Rash Neurological: Denies: Blurred vision, Double vision, Change in Speech, Slurred speech, Difficulty swallowing, Focal weakness, Numbness, Tingling Psychiatric: Reports: Anxiety. Denies: Depression, Homicidal Ideations, Suicidal Ideations Endocrine: Denies: Change in Body Habitus, Heat/ Cold Intolerance, Polydipsia, Polyuria Hematologic/ Lymphatic: Denies: Adenopathy, Anemia, Easy Bruising, Easy Bleeding, Petechiae, Purpura VTE Information - Inpt Only VTE Present on Admission: No VTE Mechan Device Prophylaxis: None VTE Pharm Prophylaxis ordered?: No Reason prophylaxis not ordered:: Treatment Not Indicated - Low risk for VTE Patient Problems: Active and Suspected Problems (This Medical Record has been edited. Action required.) Alcohol withdrawal (Acute) Benzodiazepine withdrawal (Acute) Opiate withdrawal (Acute) - Physical Exam Vitals/I&O's: Vital Signs Temp Pulse Resp BP Pulse Ox 97.8 F 118 H 16 163/104 H 97 01/07/20 20:54 01/07/20 20:54 01/07/20 20:54 01/07/20 20:54 01/07/20 20:54 Oxygen Delivery Method Room Air Weight: 61.235 kg Body Mass Index (BMI) 23.9 General: Alert, Oriented x3, Cooperative, Well developed, Well nourished, - - Patient appears anxious HEENT: Atraumatic, PERRLA, EOMI, Normocephalic Oral: Moist Mucosa Neck: Supple, No JVD, Negative Carotid Bruits, No Nuchal Rigidity, Trachea Midline, Thyroid Normal Size and Texture Lungs: Clear to auscultation, Normal air movement, No rhonchi, No wheeze, No rales Cardiovascular: Regular rate, Regular Rhythm, Normal S1, Normal S2, No murmurs, PMI Normal, No rub noted, No Gallop Abdomen: Bowel Sounds Present, Soft, Non Tender, Non-Distended, No hernias noted Extremities: No clubbing, No cyanosis, No edema, Capillary Refill Less than 3 Seconds Skin: No rashes, No breakdown Musculoskeletal: No Tenderness to Palpation of Joints or Extremities Neurological: Cranial nerves II-XII grossly intact, Neuro grossly intact, Senso ry exam intact to light touch and pain, Coordination normal Psych/Mental Status: Appropriate, Anxious, Alert and oriented to time, place, person, mood and affect Laboratory Results 01/07/20 20:15: WBC 5.5, RBC 5.05, Hgb 13.0, Hct 40.0, MCV 79.2 L, MCH 25.7 L, MCHC 32.5, RDW Std Deviation 56.9 H, RDW Coeff of Chuy 20.6 H, Plt Count 393, MPV 9.2, Immature Gran % (Auto) 0.200, Neut % (Auto) 57.0, Lymph % (Auto) 32.6, [place] % (Auto) 8.6, Eos % (Auto) 0.5, Baso % (Auto) 1.1 H, Absolute Neuts (auto) 3.1, Absolute Lymphs (auto) 1.79, Nucleated RBC % 0, Differential Comment SCANNED, Anisocytosis 1+ 01/07/20 20:15: Sodium 145, Potassium 3.3 L, Chloride 109 H, Carbon Dioxide 26.0, Anion Gap 10, BUN 7, Creatinine 0.86, Estim Creat Clear Calc 72.65, Est GFR (MDRD) Af Amer 94, Est GFR (MDRD) Non-Af 78, BUN/Creatinine Ratio 8.1 L, Glucose 142 H, Calcium 8.5, Total Bilirubin 0.30, AST 19, ALT 40, Alkaline Phosphatase 69, Total Protein 7.9, Albumin 3.8, Globulin 4.1, Albumin/Globulin Ratio 0.9 01/07/20 20:15: Ethyl Alcohol 298.0 01/07/20 20:15: Serum , Qual NEGATIVE 01/07/20 20:30: Urine Opiates Screen NEGATIVE, Urine Methadone Screen NEGATIVE, Ur Barbiturates Screen NEGATIVE, Ur Phencyclidine Scrn NEGATIVE, Ur Amphetamines Screen NEGATIVE, U Methamphetamin-MDMA NEGATIVE, U Benzodiazepines Scrn POSITIVE H, Urine Cocaine Screen NEGATIVE, U Cannabinoids Screen NEGATIVE, Ur Drug Screen Comment Assessment/Plan All Active Problems (This Medical Record has been edited. Action required.) Hypokalemia (Acute) Alcohol withdrawal (Acute) Benzodiazepine withdrawal (Acute) Opiate withdrawal (Acute) Gastritis (Resolved) Fall (Resolved) Alcohol intoxication with blood level over 0.3 (Resolved) Nasal fracture (Resolved) Alcohol withdrawal delirium, acute, hyperactive (Resolved) Benzodiazepine withdrawal with delirium (Resolved) #1 acute alcohol withdrawal-patient will be admitted to [facility], she will be placed on a tapering dose of phenobarbital, orders were entered using the alcohol withdrawal order set. Patient will need to follow-up with 180 at the time of discharge #2 acute opiate withdrawal-patient tells me that she takes approximately 6-8 100 mg tramadol's per day, she will be placed on Subutex for withdrawal #3 benzodiazepine withdrawal-patient takes Valium chronically, she will be placed on Neurontin for benzodiazepine withdrawal, again she will need follow-up after she is discharge from the hospital. #4 chronic anxiety Further note: Patient tells me that she takes no medications at home other than the Valium and tramadol, on her outpatient medication list is noted that she takes Lexapro, Minipress, and Desyrel. Patient also told me that she has been in inpatient detox 1 time, it appears from her medical record here that she was admitted twice in 2018 for detox services which she did not mention to me. Inpatient E&M: 30320 Init Hosp L3
--- NOTE | 2020-01-07 21:43 | ED.DCSUM_ITS ---
- ER Visit Summary Date of Service: 01/07/20 Chief Complaint: Need help with substance abuse History of Present Illness: The patient is a 39 F who reports that she has been taking 10 mg of Valium 3 times a day and her last dose was 2 days ago. She is been drinking half gallon of vodka every 3 days and her last drink was 2 days ago. She is been taking 4-5 tramadol a day. Her last dose was 3 days ago. Patient reports that she would like to get off of all these things and would like help with detox and rehab. On review of system patient reports she has had abdominal pains been nausea and vomited 4 times today. No blood in her emesis. She denies any other complaints. Physical Examination: Vitals: Stable. Afebrile. General: Well-nourished and well-developed. Head: Normocephalic atraumatic. Neck: Supple, no lymphadenopathy. No JVD. Nontender. Cardiovascular: Regular rate and rhythm. No murmurs. Respiratory: No respiratory distress. Clear to auscultation bilaterally. Abdominal: Soft, nontender, nondistended, normal bowel sounds. No guarding, rebound, or peritoneal signs. Back: Nontender. Extremities: Nontender, no edema. Skin: Normal color, no rash. Neurologic: Alert and oriented ?3. Cranial nerves II through XII are intact. Normal strength and sensation. Psych: Depressed affect. Test Results: CBC is normal. Chem-7 shows a potassium 3.3, chloride 109, glucose 142. Talk screen shows benzodiazepines. Alcohol is 298. Emergency Department Course and Treatment: Patient was given a dose of Zofran IV and phenobarbital p.o. She is resting more comfortably. Treatment Plan: Patient was discussed Dr. Au. She will be admitted the hospital for further evaluation and treatment. Disposition: Admitted in stable condition. Impression: 1. Benzodiazepine withdrawal. 2. Alcohol abuse. 3. Opiate abuse. This note was generated with [employer] dictation software. It may contain incorrect words, spelling, and punctuation that were not noted in review of the chart prior to signing ED Disposition - Plan for ED Patient: Disposition: Acute Care [facility]
[2020-01-07 21:44] VITALS: BMI 23.9; BMI 26.3
[2020-01-07 22:08] VITALS: BP 153/102; PULSE 84; RESP 18; TEMP 36.6; O2SAT 100
[2020-01-07 22:20] VITALS: PULSE 84
[2020-01-07] MEDS: Phenobarbital 32.4 MG Tablet PO (22:28)
[2020-01-07] MEDS: cloNIDine HCl 0.1 MG Tablet PO (22:28)
[2020-01-07] MEDS: traZODone 50 MG Tablet PO (22:28)
[2020-01-07] MEDS: Dicyclomine 10 MG Capsule 20 MG PO (22:28)
[2020-01-07] MEDS: Ondansetron ODT 4 MG Tablet 8 MG PO (22:28)
[2020-01-07] MEDS: Gabapentin 300 MG Capsule PO (22:28)
[2020-01-08] VITALS (7 sets, daily range): BP systolic 107–158; BP diastolic 73–99; PULSE 78–98; RESP 16–18; TEMP 36.5–36.9; O2SAT 97–100
[2020-01-08] MEDS: Phenobarbital 32.4 MG Tablet PO ×3 (02:03→22:34)
[2020-01-08] MEDS: LORazepam 2 MG/ML Syringe IV ×2 (02:15→06:22)
[2020-01-08] MEDS: Ibuprofen 600 MG Tablet PO (02:15)
[2020-01-08] MEDS: 0.9% Saline Lock 10 ML Syringe IV ×3 (02:16→22:50)
[2020-01-08 05:49] LABS: Anion Gap 7 (5-15); BUN 9 mg/dL (7-18); BUN/Creat Ratio 10.9 RATIO (10-20); Calcium,Total 7.9 mg/dL (8.5-10.1); Chloride 106 mmol/L (98-107); Creatinine, Serum 0.82 mg/dL (0.55-1.02); EST Glomerular Filtration Rate 82 mL/min (>60); Est Glom Filt Rate - Afr Amer 99 mL/min (>60); Estimated Creatinine Clearance 76.19 ml/min; Glucose 108 mg/dL (74-106); Potassium 3.6 mmol/L (3.5-5.1); Sodium Level 138 mmol/L (136-145)
[2020-01-08] MEDS: Acetaminophen 500 MG Tablet PO (06:21)
[2020-01-08] MEDS: Dicyclomine 10 MG Capsule 20 MG PO (06:28)
[2020-01-08] MEDS: Ondansetron ODT 4 MG Tablet 8 MG PO ×2 (06:28→22:33)
--- NOTE | 2020-01-08 08:55 | CASEMGMT ---
Social Work Note SW placed a call to Radha at [facility] and updated her on pt's admission to [facility] and that pt will need to be seen. Melina Acuna DIET TECHNICIAN REGISTERED, LIVESTOCK INSPECTOR
--- NOTE | 2020-01-08 10:42 | NURSING ---
pt unable to take am meds at this time. pt lethargic, will respond and briefly open eyes, but not able to keep awake enough for meds.
--- NOTE | 2020-01-08 10:53 | PCM.PROGNOTE ---
<Janice Brambila - Last Filed: 01/08/20 11:11> Patient Problems: Active and Suspected Problems (This Medical Record has been edited. Action required.) Alcohol withdrawal (Acute) Benzodiazepine withdrawal (Acute) Opiate withdrawal (Acute) Subjective: Patient seen and examined. Drowsy this morning. Denies current significant withdrawal symptoms. - Physical Exam Vitals/I&O's: Vital Signs Temp Pulse Resp BP Pulse Ox 98.1 F 78 18 109/73 99 01/08/20 07:48 01/08/20 07:48 01/08/20 07:48 01/08/20 07:48 01/08/20 07:48 Oxygen Delivery Method Room Air Weight: 148 lb 9.465 oz Body Mass Index (BMI) 26.3 Intake and Output for Last 24 Hours 01/06/20 01/07/20 01/08/20 23:59 23:59 23:59 Intake Total 1600 / 1600 Balance 1600 / 1600 General: Cooperative, No apparent distress, - - Drowsy HEENT: Atraumatic, PERRLA, EOMI, Normocephalic Neck: Supple, No JVD, Negative Carotid Bruits Lungs: Clear to auscultation, Normal air movement Cardiovascular: Regular rate, Regular Rhythm, Normal S1, Normal S2, No murmurs Abdomen: Bowel Sounds Present, Soft, Non Tender, Non-Distended Extremities: No clubbing, No cyanosis, No edema, Capillary Refill Less than 3 Seconds Skin: No rashes, No breakdown Musculoskeletal: No Tenderness to Palpation of Joints or Extremities Neurological: Cranial nerves II-XII grossly intact, Neuro grossly intact Psych/Mental Status: Normal Affect, Appropriate Laboratory Results 01/07/20 20:15: WBC 5.5, RBC 5.05, Hgb 13.0, Hct 40.0, MCV 79.2 L, MCH 25.7 L, MCHC 32.5, RDW Std Deviation 56.9 H, RDW Coeff of Chuy 20.6 H, Plt Count 393, MPV 9.2, Immature Gran % (Auto) 0.200, Neut % (Auto) 57.0, Lymph % (Auto) 32.6, [place] % (Auto) 8.6, Eos % (Auto) 0.5, Baso % (Auto) 1.1 H, Absolute Neuts (auto) 3.1, Absolute Lymphs (auto) 1.79, Nucleated RBC % 0, Differential Comment SCANNED, Anisocytosis 1+ 01/07/20 20:15: Sodium 145, Potassium 3.3 L, Chloride 109 H, Carbon Dioxide 26.0, Anion Gap 10, BUN 7, Creatinine 0.86, Estim Creat Clear Calc 72.65, Est GFR (MDRD) Af Amer 94, Est GFR (MDRD) Non-Af 78, BUN/Creatinine Ratio 8.1 L, Glucose 142 H, Calcium 8.5, Total Bilirubin 0.30, AST 19, ALT 40, Alkaline Phosphatase 69, Total Protein 7.9, Albumin 3.8, Globulin 4.1, Albumin/Globulin Ratio 0.9 01/07/20 20:15: Ethyl Alcohol 298.0 01/07/20 20:15: Serum , Qual NEGATIVE 01/07/20 20:30: Urine Opiates Screen NEGATIVE, Urine Methadone Screen NEGATIVE, Ur Barbiturates Screen NEGATIVE, Ur Phencyclidine Scrn NEGATIVE, Ur Amphetamines Screen NEGATIVE, U Methamphetamin-MDMA NEGATIVE, U Benzodiazepines Scrn POSITIVE H, Urine Cocaine Screen NEGATIVE, U Cannabinoids Screen NEGATIVE, Ur Drug Screen Comment 01/08/20 05:07: Sodium 138, Potassium 3.6, Chloride 106, Carbon Dioxide 25.0, Anion Gap 7, BUN 9, Creatinine 0.82, Estim Creat Clear Calc 76.19, Est GFR (MDRD) Af Amer 99, Est GFR (MDRD) Non-Af 82, BUN/Creatinine Ratio 10.9, Glucose 108 H, Calcium 7.9 L Current Medications Acetaminophen (Tylenol) 500 mg PO Q4H PRN PRN PRN Reason: Temp > 100.4 F Last Admin: 01/08/20 06:21 Dose: 500 mg Documented by: Clonidine (Catapres) 0.1 mg PO Q8H PRN PRN PRN Reason: RESTLESSNESS Last Admin: 01/07/20 22:28 Dose: 0.1 mg Documented by: Dicyclomine HCl (Bentyl) 20 mg PO Q6H PRN PRN PRN Reason: abdominal discomfort Last Admin: 01/08/20 06:28 Dose: 20 mg Documented by: Doxazosin Mesylate (Cardura) 4 mg PO DAILY BLESSING Escitalopram Oxalate (Lexapro) 20 mg PO DAILY BLESSING Folic Acid (Folic Acid) 1 mg PO DAILY@0800 [facility] Gabapentin (Neurontin) 300 mg PO Q8H PRN PRN PRN Reason: moderate to severe anxiety Last Admin: 01/07/20 22:28 Dose: 300 mg Documented by: Sodium Chloride () 250 mls @ 15 mls/hr IV .[id number] PRN PRN Reason: Saline Flush Sodium Chloride () 250 mls @ 15 mls/hr IV .[id number] PRN PRN Reason: Additional IVPB Infusion Ibuprofen (Motrin) 600 mg PO Q8H PRN PRN PRN Reason: Pain Score 1-1010 Last Admin: 01/08/20 02:15 Dose: 600 mg Documented by: Methocarbamol (Methocarbamol) 1,500 mg PO Q6H PRN PRN PRN Reason: MUSCLE SPASM Nutritional Formula (Lactose Free) (Ensure Enlive) 120 ml PO 4X/DAY [facility] Ondansetron HCl (Zofran Odt) 8 mg PO Q8H PRN PRN PRN Reason: NAUSEA Last Admin: 01/08/20 06:28 Dose: 8 mg Documented by: Phenobarbital (Phenobarbital) 97.2 mg PO Q4H [facility]; Taper Stop: 01/12/20 03:09 Last Admin: 01/08/20 06:06 Dose: 97.2 mg Documented by: Sodium Chloride () 10 - 40 ml IV UD PRN PRN Reason: SALINE FLUSH Last Admin: 01/08/20 06:21 Dose: 10 ml Documented by: Thiamine HCl (Vitamin B1) 100 mg PO DAILYCM [facility] Trazodone HCl (Desyrel) 50 mg PO QHS [facility] Last Admin: 01/07/20 22:28 Dose: 50 mg Documented by: Medical Necessity - Tobacco Use Smoking Status: Former smoker Tobacco Use: Non-smoker, Vapor Assessment/Plan All Active Problems (This Medical Record has been edited. Action required.) Hypokalemia (Acute) Alcohol withdrawal (Acute) Benzodiazepine withdrawal (Acute) Opiate withdrawal (Acute) 1. Polysubstance abuse with acute alcohol withdrawal, opiate withdrawal and benzodiazepine withdrawal-tox screen positive for benzodiazepines, alcohol 298. Continue phenobarbital taper. PRN regimen for somatic complaints. [facility] consult pending for discharge planning/follow-up. Spoke with Dr. Davidson, addiction medicine physician on treatment recommendations given polysubstance abuse/withdrawal. She recommends phenobarbital taper and PRN regimen for symptoms only. Discontinue further benzodiazepines. May also consider phenobarbital 30 mg as needed for breakthrough symptoms however patient currently appears comfortable. 2. Anxiety/Depression/bipolar disorder/PTSD-continue Lexapro, trazodone. Recommend close outpatient follow-up for counseling and psychiatric evaluation. 3. Mild hypokalemia-resolved. 4. Tobacco dependence-encouraged cessation. 5. Questionable seizure history-patient reports history of seizures however has not had any formal diagnosis. Not on antiepileptics. DVT prophylaxis-low risk, not indicated This patient was seen by MIRELLA Maxwell under the supervision of Dr. Wilson. <Sylwia Wilson E - Last Filed: 01/08/20 14:00> - Physical Exam Vitals/I&O's: Vital Signs Temp Pulse Resp BP Pulse Ox 98.1 F 78 18 109/73 99 01/08/20 07:48 01/08/20 07:48 01/08/20 07:48 01/08/20 07:48 01/08/20 07:48 Oxygen Delivery Method Room Air Weight: 148 lb 9.465 oz Body Mass Index (BMI) 26.3 Intake and Output for Last 24 Hours 01/06/20 01/07/20 01/08/20 23:59 23:59 23:59 Intake Total 1600 / 1600 Balance 1600 / 1600 Laboratory Results 01/07/20 20:15: WBC 5.5, RBC 5.05, Hgb 13.0, Hct 40.0, MCV 79.2 L, MCH 25.7 L, MCHC 32.5, RDW Std Deviation 56.9 H, RDW Coeff of Chuy 20.6 H, Plt Count 393, MPV 9.2, Immature Gran % (Auto) 0.200, Neut % (Auto) 57.0, Lymph % (Auto) 32.6, [place] % (Auto) 8.6, Eos % (Auto) 0.5, Baso % (Auto) 1.1 H, Absolute Neuts (auto) 3.1, Absolute Lymphs (auto) 1.79, Nucleated RBC % 0, Differential Comment SCANNED, Anisocytosis 1+ 01/07/20 20:15: Sodium 145, Potassium 3.3 L, Chloride 109 H, Carbon Dioxide 26.0, Anion Gap 10, BUN 7, Creatinine 0.86, Estim Creat Clear Calc 72.65, Est GFR (MDRD) Af Amer 94, Est GFR (MDRD) Non-Af 78, BUN/Creatinine Ratio 8.1 L, Glucose 142 H, Calcium 8.5, Total Bilirubin 0.30, AST 19, ALT 40, Alkaline Phosphatase 69, Total Protein 7.9, Albumin 3.8, Globulin 4.1, Albumin/Globulin Ratio 0.9 01/07/20 20:15: Ethyl Alcohol 298.0 01/07/20 20:15: Serum , Qual NEGATIVE 01/07/20 20:30: Urine Opiates Screen NEGATIVE, Urine Methadone Screen NEGATIVE, Ur Barbiturates Screen NEGATIVE, Ur Phencyclidine Scrn NEGATIVE, Ur Amphetamines Screen NEGATIVE, U Methamphetamin-MDMA NEGATIVE, U Benzodiazepines Scrn POSITIVE H, Urine Cocaine Screen NEGATIVE, U Cannabinoids Screen NEGATIVE, Ur Drug Screen Comment 01/08/20 05:07: Sodium 138, Potassium 3.6, Chloride 106, Carbon Dioxide 25.0, Anion Gap 7, BUN 9, Creatinine 0.82, Estim Creat Clear Calc 76.19, Est GFR (MDRD) Af Amer 99, Est GFR (MDRD) Non-Af 82, BUN/Creatinine Ratio 10.9, Glucose 108 H, Calcium 7.9 L Current Medications Acetaminophen (Tylenol) 500 mg PO Q4H PRN PRN PRN Reason: Temp > 100.4 F Last Admin: 01/08/20 06:21 Dose: 500 mg Documented by: Clonidine (Catapres) 0.1 mg PO Q8H PRN PRN PRN Reason: RESTLESSNESS Last Admin: 01/07/20 22:28 Dose: 0.1 mg Documented by: Dicyclomine HCl (Bentyl) 20 mg PO Q6H PRN PRN PRN Reason: abdominal discomfort Last Admin: 01/08/20 06:28 Dose: 20 mg Documented by: Doxazosin Mesylate (Cardura) 4 mg PO DAILY BLESSING Escitalopram Oxalate (Lexapro) 20 mg PO DAILY BLESSING Folic Acid (Folic Acid) 1 mg PO DAILY@0800 BLESSING Gabapentin (Neurontin) 300 mg PO Q8H PRN PRN PRN Reason: moderate to severe anxiety Last Admin: 01/07/20 22:28 Dose: 300 mg Documented by: Hydroxyzine Pamoate (Vistaril Pamoate Capsule) 50 mg PO Q6H PRN PRN PRN Reason: mild anxiety Sodium Chloride () 250 mls @ 15 mls/hr IV .[id number] PRN PRN Reason: Saline Flush Sodium Chloride () 250 mls @ 15 mls/hr IV .[id number] PRN PRN Reason: Additional IVPB Infusion Ibuprofen (Motrin) 600 mg PO Q8H PRN PRN PRN Reason: Pain Score 1-10/10 Last Admin: 01/08/20 02:15 Dose: 600 mg Documented by: Loperamide HCl (Imodium) 2 mg PO Q4H PRN PRN PRN Reason: LOOSE STOOLS Methocarbamol (Methocarbamol) 1,500 mg PO Q6H PRN PRN PRN Reason: MUSCLE SPASM Nutritional Formula (Lactose Free) (Ensure Enlive) 120 ml PO 4X/DAY [facility] Ondansetron HCl (Zofran Odt) 8 mg PO Q8H PRN PRN PRN Reason: NAUSEA Last Admin: 01/08/20 06:28 Dose: 8 mg Documented by: Phenobarbital (Phenobarbital) 97.2 mg PO Q4H [facility]; Taper Stop: 01/12/20 03:09 Last Admin: 01/08/20 06:06 Dose: 97.2 mg Documented by: Sodium Chloride () 10 - 40 ml IV UD PRN PRN Reason: SALINE FLUSH Last Admin: 01/08/20 06:21 Dose: 10 ml Documented by: Thiamine HCl (Vitamin B1) 100 mg PO DAILYCM [facility] Trazodone HCl (Desyrel) 50 mg PO QHS [facility] Last Admin: 01/07/20 22:28 Dose: 50 mg Documented by: Assessment/Plan Hospitalist note: I am seeing this patient in conjunction with Janice Brambila. I independently seen and examined the patient. Progress note above and laboratory data reviewed and I concur with the above treatment plan. Patient seen and examined this morning and she was very drowsy, able to open her eyes. She received 1 dose of 2 mg of Ativan around 6:30 this morning. Her vital signs are stable. - Physical Exam General: Drowsy, lethargic, arousable, Cooperative, No apparent distress. HEENT: Atraumatic, PERRLA, EOMI. Neck: Supple, No JVD, Negative Carotid Bruits, Trachea Midline, Thyroid Normal. Lungs: Clear to auscultation, Normal air movement, No rhonchi, No wheeze, No rales. Cardiovascular: Regular rate, Regular Rhythm, Normal S1, Normal S2, PMI Normal. Abdomen: Bowel Sounds Present, Soft, Non Tender, Non-Distended, No Hepato-splenomegaly. Extremities: No clubbing, No cyanosis, No edema Skin: No rashes, No breakdown Neurological: Able to move all limbs, neuro grossly intact Vital Signs are stable. Assessment and plan: #1 polysubstance abuse: With acute alcohol intoxication/withdrawal, opioid withdrawal and benzodiazepine withdrawal. After consultation with Dr. davidson, the addiction medicine doctor, she recommended phenobarbital taper. Patient is on PRN Catapres, Bentyl, gabapentin, methocarbamol, Imodium, Motrin, Vistaril and trazodone. Also, she is on folic acid and thiamine supplement. Routine blood work was remarkable for hypokalemia which was replaced and corrected. LFT was unremarkable. Serum test was negative. Blood alcohol level was 298. Urine drug screen was positive for benzodiazepines. Plan to continue same treatment. #2 other chronic medical problems: Stable, continue current medications as above. This note was generated with [employer] dictation software. It may contain incorrect words, spelling, and punctuation that were not noted in checking the note before signing. Inpatient E&M: 22660 Subs Hosp L2
--- NOTE | 2020-01-08 12:00 | ADDICTION ---
This social science teacher attempted to engage with patient in her room to complete diagnostic assessment, begin discharge planning and to provide resource information to patient related to alcohol and drug assistance to utilize following completion of medical withdrawal management. Client was asleep and would not rouse to this technical document writer's verbal attempts. This technical document writer will attempt to engage client tomorrow- resource packet left in her room.
[2020-01-08] MEDS: traZODone 50 MG Tablet PO (22:34)
[2020-01-08] MEDS: hydrOXYzine PAM 25 MG Capsule 50 MG PO (22:36)
[2020-01-09] VITALS (7 sets, daily range): BP systolic 126–150; BP diastolic 71–102; PULSE 79–129; RESP 16–20; TEMP 36.4–36.9; O2SAT 98–100
[2020-01-09] MEDS: Phenobarbital 32.4 MG Tablet PO ×5 (03:10→22:45)
[2020-01-09] MEDS: hydrOXYzine PAM 25 MG Capsule 50 MG PO ×3 (05:03→23:45)
[2020-01-09] MEDS: Loperamide 2 MG Capsule PO (05:03)
[2020-01-09] MEDS: Dicyclomine 10 MG Capsule 20 MG PO ×3 (05:05→22:45)
[2020-01-09] MEDS: Escitalopram Oxalate 20 MG Tablet PO (08:05)
[2020-01-09] MEDS: Doxazosin 4 MG Tablet PO (08:05)
[2020-01-09] MEDS: Folic Acid 1 MG Tablet PO (08:05)
[2020-01-09] MEDS: Thiamine Hydrochloride 100 MG Tablet PO (08:05)
[2020-01-09] MEDS: Ondansetron ODT 4 MG Tablet 8 MG PO ×2 (08:11→16:17)
[2020-01-09] MEDS: Gabapentin 300 MG Capsule PO ×2 (08:11→20:13)
[2020-01-09] MEDS: Ibuprofen 600 MG Tablet PO ×2 (08:11→16:17)
--- NOTE | 2020-01-09 09:12 | PN_ITS ---
<Janice Brambila - Last Filed: 01/09/20 09:31> Patient Problems: Active and Suspected Problems (This Medical Record has been edited. Action required.) Alcohol withdrawal (Acute) Benzodiazepine withdrawal (Acute) Opiate withdrawal (Acute) Subjective: Patient seen and examined. States she feels miserable. Complains of feeling hot and cold, nauseous, extreme anxiety. Requesting mascara and eyeliner out of her locked box. - Physical Exam Vitals/I&O's: Vital Signs Temp Pulse Resp BP Pulse Ox 97.8 F 82 16 150/90 H 100 01/09/20 08:21 01/09/20 08:21 01/09/20 08:21 01/09/20 08:21 01/09/20 08:21 Oxygen Delivery Method Room Air Weight: 148 lb 9.465 oz Body Mass Index (BMI) 26.3 Intake and Output for Last 24 Hours 01/07/20 01/08/20 01/09/20 23:59 23:59 23:59 Intake Total 1600 / 1600 Balance 1600 / 1600 General: Alert, Oriented x3, Cooperative HEENT: Atraumatic, PERRLA, EOMI, Normocephalic Neck: Supple, No JVD, Negative Carotid Bruits Lungs: Clear to auscultation, Normal air movement Cardiovascular: Regular rate, Regular Rhythm, Normal S1, Normal S2, No murmurs Abdomen: Bowel Sounds Present, Soft, Non Tender, Non-Distended Extremities: No clubbing, No cyanosis, No edema, Capillary Refill Less than 3 Seconds Skin: No rashes, No breakdown Musculoskeletal: No Tenderness to Palpation of Joints or Extremities Neurological: Cranial nerves II-XII grossly intact, Neuro grossly intact Psych/Mental Status: Anxious, Impulsive Current Medications Acetaminophen (Tylenol) 500 mg PO Q4H PRN PRN PRN Reason: Temp > 100.4 F Last Admin: 01/08/20 06:21 Dose: 500 mg Documented by: Clonidine (Catapres) 0.1 mg PO Q8H PRN PRN PRN Reason: RESTLESSNESS Last Admin: 01/07/20 22:28 Dose: 0.1 mg Documented by: Dicyclomine HCl (Bentyl) 20 mg PO Q6H PRN PRN PRN Reason: abdominal discomfort Last Admin: 01/09/20 05:05 Dose: 20 mg Documented by: Doxazosin Mesylate (Cardura) 4 mg PO DAILY [facility] Last Admin: 01/09/20 08:05 Dose: 4 mg Documented by: Escitalopram Oxalate (Lexapro) 20 mg PO DAILY [facility] Last Admin: 01/09/20 08:05 Dose: 20 mg Documented by: Folic Acid (Folic Acid) 1 mg PO DAILY@0800 [facility] Last Admin: 01/09/20 08:05 Dose: 1 mg Documented by: Gabapentin (Neurontin) 300 mg PO Q8H PRN PRN PRN Reason: moderate to severe anxiety Last Admin: 01/09/20 08:11 Dose: 300 mg Documented by: Hydroxyzine Pamoate (Vistaril Pamoate Capsule) 50 mg PO Q6H PRN PRN PRN Reason: mild anxiety Last Admin: 01/09/20 05:03 Dose: 50 mg Documented by: Sodium Chloride () 250 mls @ 15 mls/hr IV .[id number] PRN PRN Reason: Saline Flush Sodium Chloride () 250 mls @ 15 mls/hr IV .[id number] PRN PRN Reason: Additional IVPB Infusion Ibuprofen (Motrin) 600 mg PO Q8H PRN PRN PRN Reason: Pain Score 1-10/10 Last Admin: 01/09/20 08:11 Dose: 600 mg Documented by: Loperamide HCl (Imodium) 2 mg PO Q4H PRN PRN PRN Reason: LOOSE STOOLS Last Admin: 01/09/20 05:03 Dose: 2 mg Documented by: Methocarbamol (Methocarbamol) 1,500 mg PO Q6H PRN PRN PRN Reason: MUSCLE SPASM Nutritional Formula (Lactose Free) (Ensure Enlive) 120 ml PO 4X/DAY [facility] Last Admin: 01/08/20 23:34 Dose: Not Given Documented by: Ondansetron HCl (Zofran Odt) 8 mg PO Q8H PRN PRN PRN Reason: NAUSEA Last Admin: 01/09/20 08:11 Dose: 8 mg Documented by: Phenobarbital (Phenobarbital) 64.8 mg PO Q4H [facility]; Taper Stop: 01/12/20 03:09 Last Admin: 01/09/20 06:26 Dose: 64.8 mg Documented by: Sodium Chloride () 10 - 40 ml IV UD PRN PRN Reason: SALINE FLUSH Last Admin: 01/08/20 22:50 Dose: 10 ml Documented by: Thiamine [facility] ([facility]itamin [facility]) [facility] Last Admin: 01/09/20 08:05 Dose: 100 mg Documented by: Trazodone HCl (Desyrel) 50 mg PO QHS [facility] Last Admin: 01/08/20 22:34 Dose: 50 mg Documented by: Medical Necessity - Tobacco Use Smoking Status: Former smoker Tobacco Use: Non-smoker, Vapor Assessment/Plan All Active Problems (This Medical Record has been edited. Action required.) Hypokalemia (Acute) Alcohol withdrawal (Acute) Benzodiazepine withdrawal (Acute) Opiate withdrawal (Acute) 1. Polysubstance abuse with acute alcohol withdrawal, opiate withdrawal and benzodiazepine withdrawal-tox screen positive for benzodiazepines, alcohol 298. Continue phenobarbital taper. PRN regimen for somatic complaints. [facility] consult pending for discharge planning/follow-up. Spoke with Dr. Skinner, addiction medicine physician on treatment recommendations given polysubstance abuse/withdrawal. She recommends phenobarbital taper and PRN regimen for symptoms only. Discontinue further benzodiazepines. May also consider phenobarbital 30 mg as needed for breakthrough symptoms. 2. Anxiety/Depression/bipolar disorder/PTSD-continue Lexapro, trazodone. Recommend close outpatient follow-up for counseling and psychiatric evaluation. 3. Mild hypokalemia-resolved. 4. Tobacco dependence-encouraged cessation. 5. Questionable seizure history-patient reports history of seizures however has not had any formal diagnosis. Not on antiepileptics. DVT prophylaxis-low risk, not indicated This patient was seen by MIRELLA Maxwell under the supervision of Dr. Wilson. <Sylwia Wilson E - Last Filed: 01/09/20 12:12> - Physical Exam Vitals/I&O's: Vital Signs Temp Pulse Resp BP Pulse Ox 97.8 F 82 16 150/90 H 100 01/09/20 08:21 01/09/20 08:21 01/09/20 08:21 01/09/20 08:21 01/09/20 08:21 Oxygen Delivery Method Room Air Weight: 148 lb 9.465 oz Body Mass Index (BMI) 26.3 Intake and Output for Last 24 Hours 01/07/20 01/08/20 01/09/20 23:59 23:59 23:59 Intake Total 1600 / 1600 Balance 1600 / 1600 Current Medications Acetaminophen (Tylenol) 500 mg PO Q4H PRN PRN PRN Reason: Temp > 100.4 F Last Admin: 01/08/20 06:21 Dose: 500 mg Documented by: Clonidine (Catapres) 0.1 mg PO Q8H PRN PRN PRN Reason: RESTLESSNESS Last Admin: 01/07/20 22:28 Dose: 0.1 mg Documented by: Dicyclomine HCl (Bentyl) 20 mg PO Q6H PRN PRN PRN Reason: abdominal discomfort Last Admin: 01/09/20 05:05 Dose: 20 mg Documented by: Doxazosin Mesylate (Cardura) 4 mg PO DAILY [facility] Last Admin: 01/09/20 08:05 Dose: 4 mg Documented by: Escitalopram Oxalate (Lexapro) 20 mg PO DAILY [facility] Last Admin: 01/09/20 08:05 Dose: 20 mg Documented by: Folic Acid (Folic Acid) 1 mg PO DAILY@0800 [facility] Last Admin: 01/09/20 08:05 Dose: 1 mg Documented by: Gabapentin (Neurontin) 300 mg PO Q8H PRN PRN PRN Reason: moderate to severe anxiety Last Admin: 01/09/20 08:11 Dose: 300 mg Documented by: Hydroxyzine Pamoate (Vistaril Pamoate Capsule) 50 mg PO Q6H PRN PRN PRN Reason: mild anxiety Last Admin: 01/09/20 05:03 Dose: 50 mg Documented by: Sodium Chloride () 250 mls @ 15 mls/hr IV .[id number] PRN PRN Reason: Saline Flush Sodium Chloride () 250 mls @ 15 mls/hr IV .[id number] PRN PRN Reason: Additional IVPB Infusion Ibuprofen (Motrin) 600 mg PO Q8H PRN PRN PRN Reason: Pain Score 1-10/10 Last Admin: 01/09/20 08:11 Dose: 600 mg Documented by: Loperamide HCl (Imodium) 2 mg PO Q4H PRN PRN PRN Reason: LOOSE STOOLS Last Admin: 01/09/20 05:03 Dose: 2 mg Documented by: Methocarbamol (Methocarbamol) 1,500 mg PO Q6H PRN PRN PRN Reason: MUSCLE SPASM Nutritional Formula (Lactose Free) (Ensure Enlive) 120 ml PO 4X/DAY [facility] Last Admin: 01/08/20 23:34 Dose: Not Given Documented by: Ondansetron HCl (Zofran Odt) 8 mg PO Q8H PRN PRN PRN Reason: NAUSEA Last Admin: 01/09/20 08:11 Dose: 8 mg Documented by: Phenobarbital (Phenobarbital) 64.8 mg PO Q4H [facility]; Taper Stop: 01/12/20 03:09 Last Admin: 01/09/20 06:26 Dose: 64.8 mg Documented by: Sodium Chloride () 10 - 40 ml IV UD PRN PRN Reason: SALINE FLUSH Last Admin: 01/08/20 22:50 Dose: 10 ml Documented by: Thiamine HCl (Vitamin B1) 100 mg PO DAILYCM [facility] Last Admin: 01/09/20 08:05 Dose: 100 mg Documented by: Trazodone HCl (Desyrel) 50 mg PO QHS [facility] Last Admin: 01/08/20 22:34 Dose: 50 mg Documented by: Assessment/Plan Hospitalist note: I am seeing this patient in conjunction with Janice Brambila. I independently seen and examined the patient. Progress note above and laboratory data reviewed and I concur with the above treatment plan. Today, patient is fully alert and oriented x3. She mentioned that she is having a bad shakiness, restlessness and feeling miserable. Her vital signs are stable. - Physical Exam General: Drowsy, lethargic, arousable, Cooperative, No apparent distress. HEENT: Atraumatic, PERRLA, EOMI. Neck: Supple, No JVD, Negative Carotid Bruits, Trachea Midline, Thyroid Normal. Lungs: Clear to auscultation, Normal air movement, No rhonchi, No wheeze, No rales. Cardiovascular: Regular rate, Regular Rhythm, Normal S1, Normal S2, PMI Normal. Abdomen: Bowel Sounds Present, Soft, Non Tender, Non-Distended, No Hepato-splenomegaly. Extremities: No clubbing, No cyanosis, No edema Skin: No rashes, No breakdown Neurological: Able to move all limbs, neuro grossly intact Vital Signs are stable. Assessment and plan: #1 polysubstance abuse: With acute alcohol intoxication/withdrawal, opioid withdrawal and benzodiazepine withdrawal. She is on tapering course of phenobarbital. Ativan discontinued. She is on PRN Catapres, Bentyl, gabapentin, methocarbamol, Imodium, Motrin, Vistaril and trazodone. Also, she is on folic acid and thiamine supplement. Blood alcohol level was 298. Urine drug screen was positive for benzodiazepines. Plan to continue same treatment. #2 other chronic medical problems: Stable, continue current medications as above. This note was generated with [employer] dictation software. It may contain incorrect words, spelling, and punctuation that were not noted in checking the note before signing. Inpatient E&M: 20785 Subs Hosp L2
--- NOTE | 2020-01-09 14:17 | ADDICTION ---
This social worker masters met with patient in her room. She was difficult to rouse but woke up to nurse prompt. She was alert/oriented and presented with euthymic mood and affect. Patient confirmed that she is motivated to engage with [facility] following discharge from [facility]. She states that she wants to engage in Residential treatment and completed all paperwork to initiate her admit into Residential. She was instructed to begin working on her discharge plan to be reviewed with this business writer during upcoming visit prior to discharging from [facility]. This business writer has started admit process for client to directly [facility] upon discharge from [facility]. Patient is amiable. This social worker masters completed biopsychosocial assessment and ASAM assessment with client. She appears to be appropriate for 4.0 Medically Managed Intensive Inpatient Treatment at this time. Dimension1: Acute Intoxication or Withdrawal Potential Patient reports last date of use as: 01/07/2020. Reports that she was using alcohol, benzodiazepines and opioids on a daily basis, in excess. She reports a history of severe, life threatening withdrawal symptoms including seizures and high blood pressure. She reports a history of other withdrawal symptoms including: agitation, nausea, vomiting, body aches, tremors, hot and cold sweats. She will likely experience severe withdrawal symptoms if she does not complete medical withdrawal management protocol. Dimension2: Biomedical Conditions and Complications Patient denies any significant health barriers. Dimension3: Emotional, Behavioral or Cognitive Conditions and Complications Emotional: Patient reports a history of severe anxiety with no coping skills outside of medicine to manage symptoms. She reports a history of depression symptoms. She appeared to be experiencing depression and anxiety throughout this assessment. She reports a history of abuse and PTSD diagnosis. Behavioral: Patient reports no SI/HI. She reports limited ability to practice impulse control skills. Cognitive: Patient was alert/oriented x4, adequate intelligence. Appears to have some barriers to memory/concentration due to withdrawal symptoms. Dimension4: Readiness to Change Patient is self-referred to medical withdrawal management and reports motivation to engage in Residential treatment following medical withdrawal management. She appears to be in the preparation stage of change as evidenced by her identification of problem behaviors with plans to address/modify behaviors. Dimension5: Relapse, Continued Use or Continued Problem Potential Patient is at a high risk of relapse as she reports limited coping skills, no relapse prevention skills and limited ability to identify problematic people, places and things. She has been using alcohol daily since age 12 and relies of the effects for coping skills. Dimension6: Recovery/Living Environment Patient owns her home in [place], [place]. She states that her mother is her primary support person and that she relies on her mother often. She is not engaged with mutual aid at this time. She is willing to engage with peer support.
[2020-01-09] MEDS: Methocarbamol 750 MG Tablet 1500 MG PO (20:13)
[2020-01-09] MEDS: cloNIDine HCl 0.1 MG Tablet PO (20:13)
[2020-01-09] MEDS: traZODone 50 MG Tablet PO (22:45)
[2020-01-10 01:39] VITALS: BP 103/65; PULSE 72; RESP 16; TEMP 36.3; O2SAT 100
[2020-01-10] MEDS: Ibuprofen 600 MG Tablet PO ×2 (01:50→15:50)
[2020-01-10] MEDS: Phenobarbital 32.4 MG Tablet PO ×6 (01:50→22:11)
[2020-01-10 09:10] VITALS: BP 111/59; PULSE 72; RESP 18; TEMP 36.6; O2SAT 100
[2020-01-10] MEDS: cloNIDine HCl 0.1 MG Tablet PO ×2 (09:12→20:24)
[2020-01-10] MEDS: Methocarbamol 750 MG Tablet 1500 MG PO ×2 (09:12→15:50)
[2020-01-10] MEDS: Folic Acid 1 MG Tablet PO (09:12)
[2020-01-10] MEDS: Doxazosin 4 MG Tablet PO (09:12)
[2020-01-10] MEDS: Escitalopram Oxalate 20 MG Tablet PO (09:12)
[2020-01-10] MEDS: Gabapentin 300 MG Capsule PO ×2 (09:13→20:24)
[2020-01-10] MEDS: Ondansetron ODT 4 MG Tablet 8 MG PO ×2 (09:13→22:08)
[2020-01-10] MEDS: Dicyclomine 10 MG Capsule 20 MG PO (09:13)
[2020-01-10] MEDS: Thiamine Hydrochloride 100 MG Tablet PO (09:13)
--- NOTE | 2020-01-10 09:47 | PCM.PROGNOTE ---
<Janice Brambila - Last Filed: 01/10/20 09:51> Patient Problems: Active and Suspected Problems (This Medical Record has been edited. Action required.) Alcohol withdrawal (Acute) Benzodiazepine withdrawal (Acute) Opiate withdrawal (Acute) Subjective: Patient seen and examined. Very tearful. States she did not sleep overnight. States she wants to get better or I'll . Agreeable to residential treatment which she has discussed with [facility]. Denies nausea, vomiting, abdominal pain. Reports flashing lights in her vision. - Physical Exam Vitals/I&O's: Vital Signs Temp Pulse Resp BP Pulse Ox 97.8 F 72 18 111/59 L 100 01/10/20 09:10 01/10/20 09:10 01/10/20 09:10 01/10/20 09:10 01/10/20 09:10 Oxygen Delivery Method Room Air Weight: 148 lb 9.465 oz Body Mass Index (BMI) 26.3 Intake and Output for Last 24 Hours 01/08/20 01/09/20 01/10/20 23:59 23:59 23:59 Intake Total 1600 / 1600 800 / 1340 840 / 840 Balance 1600 / 1600 800 / 1340 840 / 840 General: Alert, Oriented x3, Cooperative HEENT: Atraumatic, PERRLA, EOMI, Normocephalic Neck: Supple, No JVD, Negative Carotid Bruits Lungs: Clear to auscultation, Normal air movement Cardiovascular: Regular rate, Regular Rhythm, Normal S1, Normal S2, No murmurs Abdomen: Bowel Sounds Present, Soft, Non Tender, Non-Distended Extremities: No clubbing, No cyanosis, No edema, Capillary Refill Less than 3 Seconds Skin: No rashes, No breakdown Musculoskeletal: No Tenderness to Palpation of Joints or Extremities Neurological: Cranial nerves II-XII grossly intact, Neuro grossly intact Psych/Mental Status: Anxious Current Medications Acetaminophen (Tylenol) 500 mg PO Q4H PRN PRN PRN Reason: Temp > 100.4 F Last Admin: 01/08/20 06:21 Dose: 500 mg Documented by: Clonidine (Catapres) 0.1 mg PO Q8H PRN PRN PRN Reason: RESTLESSNESS Last Admin: 01/10/20 09:12 Dose: 0.1 mg Documented by: Dicyclomine HCl (Bentyl) 20 mg PO Q6H PRN PRN PRN Reason: abdominal discomfort Last Admin: 01/10/20 09:13 Dose: 20 mg Documented by: Doxazosin Mesylate (Cardura) 4 mg PO DAILY [facility] Last Admin: 01/10/20 09:12 Dose: 4 mg Documented by: Escitalopram Oxalate (Lexapro) 20 mg PO DAILY [facility] Last Admin: 01/10/20 09:12 Dose: 20 mg Documented by: Folic Acid (Folic Acid) 1 mg PO DAILY@0800 [facility] Last Admin: 01/10/20 09:12 Dose: 1 mg Documented by: Gabapentin (Neurontin) 300 mg PO Q8H PRN PRN PRN Reason: moderate to severe anxiety Last Admin: 01/10/20 09:13 Dose: 300 mg Documented by: Hydroxyzine Pamoate (Vistaril Pamoate Capsule) 50 mg PO Q6H PRN PRN PRN Reason: mild anxiety Last Admin: 01/09/20 23:45 Dose: 50 mg Documented by: Sodium Chloride () 250 mls @ 15 mls/hr IV .[id number] PRN PRN Reason: Saline Flush Sodium Chloride () 250 mls @ 15 mls/hr IV .[id number] PRN PRN Reason: Additional IVPB Infusion Ibuprofen (Motrin) 600 mg PO Q8H PRN PRN PRN Reason: Pain Score 1-10/10 Last Admin: 01/10/20 01:50 Dose: 600 mg Documented by: Loperamide HCl (Imodium) 2 mg PO Q4H PRN PRN PRN Reason: LOOSE STOOLS Last Admin: 01/09/20 05:03 Dose: 2 mg Documented by: Methocarbamol (Methocarbamol) 1,500 mg PO Q6H PRN PRN PRN Reason: MUSCLE SPASM Last Admin: 01/10/20 09:12 Dose: 1,500 mg Documented by: Nutritional Formula (Lactose Free) (Ensure Enlive) 120 ml PO 4X/DAY [facility] Last Admin: 01/10/20 09:12 Dose: 120 ml Documented by: Ondansetron HCl (Zofran Odt) 8 mg PO Q8H PRN PRN PRN Reason: NAUSEA Last Admin: 01/10/20 09:13 Dose: 8 mg Documented by: Phenobarbital (Phenobarbital) 64.8 mg PO Q6H [facility]; Taper Stop: 01/12/20 03:09 Last Admin: 01/10/20 06:08 Dose: 64.8 mg Documented by: Phenobarbital (Phenobarbital) 32.4 mg PO BID PRN PRN Reason: withdrawal Last Admin: 01/10/20 09:16 Dose: 32.4 mg Documented by: Sodium Chloride () 10 - 40 ml IV UD PRN PRN Reason: SALINE FLUSH Last Admin: 01/08/20 22:50 Dose: 10 ml Documented by: Thiamine HCl (Vitamin B1) 100 mg PO DAILYCM [facility] Last Admin: 01/10/20 09:13 Dose: 100 mg Documented by: Trazodone HCl (Desyrel) 50 mg PO QHS [facility] Last Admin: 01/09/20 22:45 Dose: 50 mg Documented by: Medical Necessity - Tobacco Use Smoking Status: Former smoker Tobacco Use: Non-smoker, Vapor Assessment/Plan All Active Problems (This Medical Record has been edited. Action required.) Hypokalemia (Acute) Alcohol withdrawal (Acute) Benzodiazepine withdrawal (Acute) Opiate withdrawal (Acute) 1. Polysubstance abuse with acute alcohol withdrawal, opiate withdrawal and benzodiazepine withdrawal-tox screen positive for benzodiazepines, alcohol 298. Continue phenobarbital taper. PRN regimen for somatic complaints. [facility] consult for discharge planning/follow-up. Plan for residential treatment at discharge. Spoke with Dr. Skinner, addiction medicine physician on treatment recommendations given polysubstance abuse/withdrawal. She recommends phenobarbital taper and PRN regimen for symptoms only. Discontinue further benzodiazepines. Added phenobarbital 30 mg BID as needed for breakthrough symptoms. 2. Anxiety/Depression/bipolar disorder/PTSD-continue Lexapro, trazodone. Recommend close outpatient follow-up for counseling and psychiatric evaluation. 3. Mild hypokalemia-resolved. 4. Tobacco dependence-encouraged cessation. 5. Questionable seizure history-patient reports history of seizures however has not had any formal diagnosis. Not on antiepileptics. DVT prophylaxis-low risk, not indicated This patient was seen by MIRELLA Maxwell under the supervision of Dr. Wilson. <Sylwia Wilson E - Last Filed: 01/10/20 12:03> - Physical Exam Vitals/I&O's: Vital Signs Temp Pulse Resp BP Pulse Ox 97.8 F 72 18 111/59 L 100 01/10/20 09:10 01/10/20 09:10 01/10/20 09:10 01/10/20 09:10 01/10/20 09:10 Oxygen Delivery Method Room Air Weight: 148 lb 9.465 oz Body Mass Index (BMI) 26.3 Intake and Output for Last 24 Hours 01/08/20 01/09/20 01/10/20 23:59 23:59 23:59 Intake Total 1600 / 1600 800 / 1340 1320 / 1320 Balance 1600 / 1600 800 / 1340 1320 / 1320 Current Medications Acetaminophen (Tylenol) 500 mg PO Q4H PRN PRN PRN Reason: Temp > 100.4 F Last Admin: 01/08/20 06:21 Dose: 500 mg Documented by: Clonidine (Catapres) 0.1 mg PO Q8H PRN PRN PRN Reason: RESTLESSNESS Last Admin: 01/10/20 09:12 Dose: 0.1 mg Documented by: Dicyclomine HCl (Bentyl) 20 mg PO Q6H PRN PRN PRN Reason: abdominal discomfort Last Admin: 01/10/20 09:13 Dose: 20 mg Documented by: Doxazosin Mesylate (Cardura) 4 mg PO DAILY [facility] Last Admin: 01/10/20 09:12 Dose: 4 mg Documented by: Escitalopram Oxalate (Lexapro) 20 mg PO DAILY [facility] Last Admin: 01/10/20 09:12 Dose: 20 mg Documented by: Folic Acid (Folic Acid) 1 mg PO DAILY@0800 [facility] Last Admin: 01/10/20 09:12 Dose: 1 mg Documented by: Gabapentin (Neurontin) 300 mg PO Q8H PRN PRN PRN Reason: moderate to severe anxiety Last Admin: 01/10/20 09:13 Dose: 300 mg Documented by: Hydroxyzine Pamoate (Vistaril Pamoate Capsule) 50 mg PO Q6H PRN PRN PRN Reason: mild anxiety Last Admin: 01/09/20 23:45 Dose: 50 mg Documented by: Sodium Chloride () 250 mls @ 15 mls/hr IV .[id number] PRN PRN Reason: Saline Flush Sodium Chloride () 250 mls @ 15 mls/hr IV .[id number] PRN PRN Reason: Additional IVPB Infusion Ibuprofen (Motrin) 600 mg PO Q8H PRN PRN PRN Reason: Pain Score 1-10/10 Last Admin: 01/10/20 01:50 Dose: 600 mg Documented by: Loperamide HCl (Imodium) 2 mg PO Q4H PRN PRN PRN Reason: LOOSE STOOLS Last Admin: 01/09/20 05:03 Dose: 2 mg Documented by: Methocarbamol (Methocarbamol) 1,500 mg PO Q6H PRN PRN PRN Reason: MUSCLE SPASM Last Admin: 01/10/20 09:12 Dose: 1,500 mg Documented by: Nutritional Formula (Lactose Free) (Ensure Enlive) 120 ml PO 4X/DAY [facility] Last Admin: 01/10/20 09:12 Dose: 120 ml Documented by: Ondansetron HCl (Zofran Odt) 8 mg PO Q8H PRN PRN PRN Reason: NAUSEA Last Admin: 01/10/20 09:13 Dose: 8 mg Documented by: Phenobarbital (Phenobarbital) 64.8 mg PO Q6H [facility]; Taper Stop: 01/12/20 03:09 Last Admin: 01/10/20 11:56 Dose: 64.8 mg Documented by: Phenobarbital (Phenobarbital) 32.4 mg PO BID PRN PRN Reason: withdrawal Last Admin: 01/10/20 09:16 Dose: 32.4 mg Documented by: Sodium Chloride () 10 - 40 ml IV UD PRN PRN Reason: SALINE FLUSH Last Admin: 01/08/20 22:50 Dose: 10 ml Documented by: [facility] Last Admin: 01/10/20 09:13 Dose: 100 mg Documented by: Trazodone HCl (Desyrel) 50 mg PO QHS [facility] Last Admin: 01/09/20 22:45 Dose: 50 mg Documented by: Assessment/Plan Hospitalist note: I am seeing this patient in conjunction with Janice Brambila. I independently seen and examined the patient. Progress note above and laboratory data reviewed and I concur with the above treatment plan. Patient stated that she had a fall last night and she has lots of bruises on her buttocks. She mentioned that she could not sleep last night. She is still tearful and shaky. I checked her both buttocks and there is no evidence of bruises. Nursing staff reported that patient was able to sleep for at least 4 hours last night. Her vital signs are stable. - Physical Exam General: Drowsy, lethargic, arousable, Cooperative, No apparent distress. HEENT: Atraumatic, PERRLA, EOMI. Neck: Supple, No JVD, Negative Carotid Bruits, Trachea Midline, Thyroid Normal. Lungs: Clear to auscultation, Normal air movement, No rhonchi, No wheeze, No rales. Cardiovascular: Regular rate, Regular Rhythm, Normal S1, Normal S2, PMI Normal. Abdomen: Bowel Sounds Present, Soft, Non Tender, Non-Distended, No Hepato-splenomegaly. Extremities: No clubbing, No cyanosis, No edema Skin: No rashes, No breakdown Neurological: Able to move all limbs, neuro grossly intact Vital Signs are stable. Assessment and plan: #1 polysubstance abuse: With acute alcohol intoxication/withdrawal, opioid withdrawal and benzodiazepine withdrawal. Remained on tapering course of phenobarbital. Ativan discontinued. She is on PRN Catapres, Bentyl, gabapentin, methocarbamol, Imodium, Motrin, Vistaril and trazodone. Also, she is on folic acid and thiamine supplement. Patient is agreed to residential treatment upon discharge. Started on phenobarbital twice daily PRN for breakthrough symptoms. Patient may need to be evaluated by psychiatry as outpatient. #2 other chronic medical problems: Stable, continue current medications as above. This note was generated with [employer] dictation software. It may contain incorrect words, spelling, and punctuation that were not noted in checking the note before signing. Inpatient E&M: 18116 Subs Hosp L2
--- NOTE | 2020-01-10 15:29 | ADDICTION ---
This selling underwriter met with patient in her room to process discharge plan. Patient is scheduled to be discharged from [facility] on 01/11/2020 and will directly admit into [facility] upon discharge from [facility]. This selling underwriter has obtained transportation for client and has communicated with hospital professor of social work re: Pamella's discharge plans. Patient completed written discharge plan with written commitment to engage in residential treatment following medical withdrawal management.
[2020-01-10 15:39] VITALS: BP 119/67; PULSE 75; RESP 18; TEMP 36.7; O2SAT 100
[2020-01-10] MEDS: hydrOXYzine PAM 25 MG Capsule 50 MG PO (15:50)
[2020-01-10] MEDS: Calcium Carbonate 500 MG Tablet PO (15:50)
[2020-01-10 20:30] VITALS: BP 130/69; PULSE 98; RESP 16; TEMP 36.8; O2SAT 99
[2020-01-10] MEDS: traZODone 50 MG Tablet PO (22:08)
[2020-01-11] MEDS: Dicyclomine 10 MG Capsule 20 MG PO ×2 (00:58→08:14)
[2020-01-11] MEDS: Calcium Carbonate 500 MG Tablet PO (00:58)
[2020-01-11] MEDS: Methocarbamol 750 MG Tablet 1500 MG PO ×2 (01:03→08:14)
[2020-01-11 02:30] VITALS: BP 115/67; PULSE 78; RESP 16; TEMP 36.6; O2SAT 98
[2020-01-11] MEDS: hydrOXYzine PAM 25 MG Capsule 50 MG PO (02:51)
[2020-01-11] MEDS: Phenobarbital 32.4 MG Tablet PO ×2 (04:38→10:17)
[2020-01-11 07:50] VITALS: BP 126/75; PULSE 107; RESP 16; TEMP 36.3; O2SAT 100
[2020-01-11] MEDS: Escitalopram Oxalate 20 MG Tablet PO (08:00)
[2020-01-11] MEDS: Folic Acid 1 MG Tablet PO (08:00)
[2020-01-11] MEDS: Thiamine Hydrochloride 100 MG Tablet PO (08:00)
[2020-01-11] MEDS: cloNIDine HCl 0.1 MG Tablet PO (08:01)
[2020-01-11] MEDS: Doxazosin 4 MG Tablet PO (08:01)
[2020-01-11] MEDS: Gabapentin 300 MG Capsule PO (08:14)
--- NOTE | 2020-01-11 08:31 | DCINST_ITS ---
- Discharge Diagnoses Current Active Problems: Current Active and Chronic Problems (This Medical Record has been edited. Action required.) Alcohol withdrawal (Acute) Benzodiazepine withdrawal (Acute) Opiate withdrawal (Acute) You will use the following diet at home:: No restrictions Your food should be the consistency of: Regular Your liquids should be the consistency of: Regular/Thin Discharge Activity: Return to Normal Activity Allergies/Adverse Reactions: Allergies Penicillins Allergy (Verified 01/07/20 19:46) Anaphylaxis Medications to take at Discharge Escitalopram Oxalate [Lexapro] 20 mg PO DAILY 12/31/17 Prazosin HCl 5 capsule PO DAILY 08/03/18 traZODone [Desyrel] 50 mg PO QHS #10 tablet 08/06/18 Primary Care Physician: MELODY JONSE [Other] Please follow up with your Primary Care Physician in: 1-2 weeks Test Results: Test results from this visit will be discussed in further detail at your follow- up appointment, if applicable. Please Follow Up With: [facility] When: Today Please Follow Up With: Psychiatric Services When: 1 week Proposed Discharge Date: 01/11/20
--- NOTE | 2020-01-11 10:31 | PHA.DC.MR ---
Pharmacy Service has performed discharge medication reconciliation for this patient. The patient's discharge medication list was reviewed for discrepancies and discrepancies were resolved. Home Medications Escitalopram Oxalate [Lexapro] 20 mg PO DAILY 12/31/17 Prazosin HCl 5 capsule PO DAILY 08/03/18 traZODone [Desyrel] 50 mg PO QHS #10 tablet 08/06/18
--- NOTE | 2020-01-11 10:41 | NURSING ---
spoke with Radha at [facility]. explained that pt is still waiting on x-ray of foot but radiology reports that should be completed around 1100. tentative plan at this time for discharge at 1145 and Radha to provide transportation.
--- NOTE | 2020-01-11 10:50 | RAD_ITS ---
STUDY: X-RAY - RIGHT FOOT CLINICAL: Female, 39 years old. POSSIBLE GLASS AT BASE OF 2ND TOE TECHNIQUE: 3 view(s) of the foot. COMPARISON: None. FINDINGS: Normal talus, calcaneus, and tarsal bones. Normal visualized subtalar, talonavicular, calcaneocuboid, tarsal and tarsometatarsal articulations. Normal metatarsi. Normal metatarsophalangeal joint of the great toe. Normal tibial and fibular sesamoid bones. Normal interphalangeal joint of the great toe. Normal phalanges of the great toe. Normal second through fifth metatarsophalangeal joints. Normal interphalangeal joints and phalanges of the lesser toes. The soft tissue structures are unremarkable. RAD/Foot 2 Views IMPRESSION: Normal x-ray examination of the foot. Electronically Signed: Sean Argueta, at 11:21 EDT , Service support ,
--- NOTE | 2020-01-11 11:36 | ADDICTION ---
This program writer spoke with RN, Lise, re: patient discharge/engagement with Residential treatment at [facility]. Lise stated that patient will be discharged around 11:45. Patient plans to directly admit to residential treatment following d/c from [facility]. This program writer will provide patient transport to [facility] for intake and admit into Residential Treatment. Patient amiable.
[2020-01-11 11:45] VITALS: BP 125/71; PULSE 82; RESP 16; TEMP 37; O2SAT 100
--- NOTE | 2020-01-11 11:59 | PCM.DC.SUM ---
<Tanner Ye - Last Filed: 01/11/20 11:59> Discharge Date and Diagnosis Date of Admission: 01/07/20 Date of Discharge: 01/11/20 - Primary Discharge Diagnosis Active and Suspected Problems (This Medical Record has been edited. Action required.) Alcohol withdrawal (Acute) Benzodiazepine withdrawal (Acute) Opiate withdrawal (Acute) - Secondary Discharge Diagnosis Chronic Problems (This Medical Record has been edited. Action required.) PTSD (post-traumatic stress disorder) (Chronic) Tobacco dependence due to cigarettes (Chronic) GERD (gastroesophageal reflux disease) (Chronic) Cannabis use disorder, mild, abuse (Chronic) Bipolar disorder (Chronic) Seizure disorder (Chronic) alcohol withdrawal seizures Alcohol dependence (Chronic) Benzodiazepine dependence (Chronic) Hospital Course and Treatment Imaging Results: 01/11/20 10:50 RAD [Foot 2 Views] [RAD] Urgent RAD/Foot 2 Views IMPRESSION: Normal x-ray examination of the foot. Operations: None Procedures: None Summary of Care Provided: Hospital Course: The patient is a 39 year old F with pmhx as above who prseented to the ER with alcohol, opiate, and benzodiazepine withdrawal. She drank abot 1.5 L vodka daily, last drank the day of presentation and also was using valium that she got from her psychiatrist. She was also abusing tramadol. She was started on phenobarbital and admitted for detox. She completed the detox program and arranged to go to [facility] the day of discharge for vivitrol. She will need to also follow up with her psychiatrist in 1 week and her PCP in 1-2 weeks. She also had an x ray of her foot as she had stepped on glass and had a foreign body sensation, the xray however showed no foreign body. She was discharged home in stable condition. This patient was seen by Tanner Ye PA-C under the supervision of Dr. Wilson. [] - Physical Exam Vitals/I&O's: Vital Signs Temp Pulse Resp BP Pulse Ox 97.3 F L 107 H 16 126/75 H 100 01/11/20 07:50 01/11/20 07:50 01/11/20 07:50 01/11/20 07:50 01/11/20 07:50 Oxygen Delivery Method Room Air Weight: 148 lb 9.465 oz Body Mass Index (BMI) 26.3 Intake and Output for Last 24 Hours 01/09/20 01/10/20 01/11/20 23:59 23:59 23:59 Intake Total 800 / 1340 1320 / 1320 Balance 800 / 1340 1320 / 1320 General: Alert, Oriented x3, Cooperative HEENT: Atraumatic, PERRLA, EOMI, Normocephalic Neck: Supple, No JVD, Negative Carotid Bruits Lungs: Clear to auscultation, Normal air movement Cardiovascular: Regular rate, No murmurs Abdomen: Bowel Sounds Present, Soft, Non Tender Extremities: No edema, Capillary Refill Less than 3 Seconds Skin: No rashes, No breakdown Musculoskeletal: No Tenderness to Palpation of Joints or Extremities Neurological: Cranial nerves II-XII grossly intact Psych/Mental Status: Normal Affect, Appropriate, Alert and oriented to time, place, person, mood and affect Current Medications Acetaminophen (Tylenol) 500 mg PO Q4H PRN PRN PRN Reason: Temp > 100.4 F Last Admin: 01/08/20 06:21 Dose: 500 mg Documented by: Calcium Carbonate (Tums) 500 mg PO Q6H PRN PRN PRN Reason: INDIGESTION Last Admin: 01/11/20 00:58 Dose: 500 mg Documented by: Clonidine (Catapres) 0.1 mg PO Q8H PRN PRN PRN Reason: RESTLESSNESS Last Admin: 01/11/20 08:01 Dose: 0.1 mg Documented by: Dicyclomine HCl (Bentyl) 20 mg PO Q6H PRN PRN PRN Reason: abdominal discomfort Last Admin: 01/11/20 08:14 Dose: 20 mg Documented by: Doxazosin Mesylate (Cardura) 4 mg PO DAILY [facility] Last Admin: 01/11/20 08:01 Dose: 4 mg Documented by: Escitalopram Oxalate (Lexapro) 20 mg PO DAILY [facility] Last Admin: 01/11/20 08:00 Dose: 20 mg Documented by: Folic Acid (Folic Acid) 1 mg PO DAILY@0800 [facility] Last Admin: 01/11/20 08:00 Dose: 1 mg Documented by: Gabapentin (Neurontin) 300 mg PO Q8H PRN PRN PRN Reason: moderate to severe anxiety Last Admin: 01/11/20 08:14 Dose: 300 mg Documented by: Hydroxyzine Pamoate (Vistaril Pamoate Capsule) 50 mg PO Q6H PRN PRN PRN Reason: mild anxiety Last Admin: 01/11/20 02:51 Dose: 50 mg Documented by: Sodium Chloride () 250 mls @ 15 mls/hr IV .[id number] PRN PRN Reason: Saline Flush Sodium Chloride () 250 mls @ 15 mls/hr IV .[id number] PRN PRN Reason: Additional IVPB Infusion Ibuprofen (Motrin) 600 mg PO Q8H PRN PRN PRN Reason: Pain Score 1-10/10 Last Admin: 01/10/20 15:50 Dose: 600 mg Documented by: Loperamide HCl (Imodium) 2 mg PO Q4H PRN PRN PRN Reason: LOOSE STOOLS Last Admin: 01/09/20 05:03 Dose: 2 mg Documented by: Methocarbamol (Methocarbamol) 1,500 mg PO Q6H PRN PRN PRN Reason: MUSCLE SPASM Last Admin: 01/11/20 08:14 Dose: 1,500 mg Documented by: Nutritional Formula (Lactose Free) (Ensure Enlive) 120 ml PO 4X/DAY [facility] Last Admin: 01/11/20 08:00 Dose: Not Given Documented by: Ondansetron HCl (Zofran Odt) 8 mg PO Q8H PRN PRN PRN Reason: NAUSEA Last Admin: 01/10/20 22:08 Dose: 8 mg Documented by: Phenobarbital (Phenobarbital) 32.4 mg PO Q6H [facility]; Taper Stop: 01/12/20 03:09 Last Admin: 01/11/20 10:17 Dose: 32.4 mg Documented by: Phenobarbital (Phenobarbital) 32.4 mg PO BID PRN PRN Reason: withdrawal Last Admin: 01/10/20 09:16 Dose: 32.4 mg Documented by: Sodium Chloride () 10 - 40 ml IV UD PRN PRN Reason: SALINE FLUSH Last Admin: 01/08/20 22:50 Dose: 10 ml Documented by: [facility]iamine [facility] ([facility]itamin B1) [facility] Last Admin: 01/11/20 08:00 Dose: 100 mg Documented by: Trazodone HCl (Desyrel) 50 mg PO QHS [facility] Last Admin: 05/13/20 22:08 Dose: 50 mg Documented by: Discharge Diet: No Restrictions Discharge Activity: Return to Normal Activity Home Medications: Medications to take at Discharge Escitalopram Oxalate [Lexapro] 20 mg PO DAILY 12/31/17 Prazosin HCl 5 capsule PO DAILY 08/03/18 traZODone [Desyrel] 50 mg PO QHS #10 tablet 08/06/18 Primary Care Physician: MELODY JONES [Other] Please follow up with your Primary Care Physician in: 1-2 weeks Please Follow Up With: [facility] When: Today Please Follow Up With: Psychiatric Services When: 1 week Disposition: Home Minutes spent on discharge:: 35 Patient Condition:: Stable Medical Necessity - Tobacco Use Smoking Status: Former smoker Tobacco Use: Non-smoker, Vapor Meaningful Use Info Meaningful Use Diagnoses (Choose all that apply): None applicable <Sylwia Wilson E - Last Filed: 01/11/20 13:17> Discharge Date and Diagnosis - Secondary Discharge Diagnosis Chronic Problems (This Medical Record has been edited. Action required.) PTSD (post-traumatic stress disorder) (Chronic) Tobacco dependence due to cigarettes (Chronic) GERD (gastroesophageal reflux disease) (Chronic) Cannabis use disorder, mild, abuse (Chronic) Bipolar disorder (Chronic) Seizure disorder (Chronic) alcohol withdrawal seizures Alcohol dependence (Chronic) Benzodiazepine dependence (Chronic) Hospital Course and Treatment Imaging Results: 01/11/20 10:50 RAD [Foot 2 Views] [RAD] Urgent Summary of Care Provided: Hospitalist note: Discharge summary above reviewed and I concur with above discharge treatment plan. Patient presented to the emergency room requesting admission for medical stabilization for acute alcohol, opioid and benzodiazepine withdrawal. Patient has been on prescription Valium and tramadol and she has been drinking heavily. On admission, her urine drug screen was positive for benzodiazepines. Blood alcohol level was 298. Routine blood work was unremarkable except for mild hypokalemia which was replaced and corrected. LFT was unremarkable. Serum test was negative. Patient was treated with tapering course of phenobarbital after we contacted the [facility] program who recommended only phenobarbital tapering course for treatment of combination of alcohol, opioids and benzodiazepine withdrawal. Also, patient was treated with as needed Catapres, Bentyl, gabapentin, methocarbamol, Imodium, Motrin, Vistaril and trazodone. With treatment, patient symptoms improved, was able to sleep and her level of anxiety and shakiness improved. Patient mentioned that she thinks she has a piece of glass in her second right toe. X-ray of the right foot done and showed no evidence of foreign bodies on the right foot. Patient requested residential treatment at [address] [place] [address] to get more help. [address] [place] [address] agreed to take patient for residential treatment. Patient discharged to [facility] in a stable condition, discharged on her depression medications including Lexapro and trazodone, tramadol and Valium discontinued, recommended follow-up with PCP in 1 to 2 weeks and recommended follow-up with psychiatry as outpatient.. - Physical Exam General: Alert, Oriented x3, Cooperative, No apparent distress. HEENT: Atraumatic, PERRLA, EOMI. Neck: Supple, No JVD, Negative Carotid Bruits, Trachea Midline, Thyroid Normal. Lungs: Clear to auscultation, Normal air movement, No rhonchi, No wheeze, No rales. Cardiovascular: Regular rate, Regular Rhythm, Normal S1, Normal S2, PMI Normal. Abdomen: Bowel Sounds Present, Soft, Non Tender, Non-Distended, No Hepato-splenomegaly. Extremities: No clubbing, No cyanosis, No edema Skin: No rashes, No breakdown Neurological: Cranial nerves intact, neuro grossly intact Vital Signs are stable. This note was generated with [employer] dictation software. It may contain incorrect words, spelling, and punctuation that were not noted in checking the note before signing. - Physical Exam Vitals/I&O's: Vital Signs Temp Pulse Resp BP Pulse Ox 97.3 F L 107 H 16 126/75 H 100 01/11/20 07:50 01/11/20 07:50 01/11/20 07:50 01/11/20 07:50 01/11/20 07:50 Oxygen Delivery Method Room Air Weight: 148 lb 9.465 oz Body Mass Index (BMI) 26.3 Intake and Output for Last 24 Hours 01/09/20 01/10/20 01/11/20 23:59 23:59 23:59 Intake Total 800 / 1340 1320 / 1320 Balance 800 / 1340 1320 / 1320 Disposition: Home Minutes spent on discharge:: 27 Patient Condition:: Stable Meaningful Use Info Meaningful Use Diagnoses (Choose all that apply): None applicable Inpatient E&M: 15807 Disch Hosp
== END 2020-01-11 12:15 | disposition home or self-care (01) | DRG 773 ==
LOC: ED 20:52 → MS3 23:57
PROVIDERS: Admitting Provider Internal Medicine; Emergency Provider Emergency Medicine; Visit Provider Hospitalist
DX: F13.230 Sedative, hypnotic or anxiolytic dependence with withdrawal, uncomplicated (principal); F11.23 Opioid dependence with withdrawal; F10.239 Alcohol dependence with withdrawal, unspecified; Y90.8 Blood alcohol level of 240 mg/100 ml or more; F12.10 Cannabis abuse, uncomplicated; E87.6 Hypokalemia; S99.921A Unspecified injury of right foot, initial encounter; W22.8XXA Striking against or struck by other objects, initial encounter; Y93.9 Activity, unspecified; Y92.9 Unspecified place or not applicable; Y99.9 Unspecified external cause status; K21.9 Gastro-esophageal reflux disease without esophagitis; F43.12 Post-traumatic stress disorder, chronic; F31.9 Bipolar disorder, unspecified; F41.9 Anxiety disorder, unspecified; F17.210 Nicotine dependence, cigarettes, uncomplicated; Z88.0 Allergy status to penicillin; Z79.899 Other long term (current) drug therapy
CPT/HCPCS: 36415; 73620; 80048; 80053; 80307; 80320; 84703; 85025; 96374; 99284; A4216; G0480; J2405

== ENCOUNTER 2020-04-04 14:39 | Inpatient (IN) | payer MEDICAID, SELFPAY ==
[2020-01-07 21:44] VITALS: BMI 26.3
[2020-04-04 14:40] VITALS: BP 146/98; PULSE 105; RESP 16; TEMP 36.4; O2SAT 96; BMI 23.4
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
[2020-04-04] MEDS: LORazepam 2 MG/ML Syringe 1 MG IV (16:12)
[2020-04-04] MEDS: Ondansetron 4 MG/2 ML Vial IV (16:12)
[2020-04-04 16:14] VITALS: RESP 17
[2020-04-04] MEDS: Phenobarbital 32.4 MG Tablet 97.2 MG PO (16:20)
[2020-04-04 16:48] LABS: Absolute Lymphocyte Count 2.12 X10^3/uL (0.83-4.51); Absolute Neutrophil Count 3.3 X10^3/uL (2.0-7.7); Basophil% 1.6 % (0-1); Eosinophil# 0.14 X10^3/uL; Eosinophils% 2.3 % (0-5); Hematocrit 35.1 % (37-47); Hemoglobin 11.2 g/dL (12.0-15.0); Lymphocyte # 2.12 X10^3/ul (4.0); Lymphocyte % 34.5 % (19-41); Mean Corp Hgb Conc 31.9 g/dL (32-36); Mean Corpuscular Hgb 25.1 pg (27.0-32.0); Mean Corpuscular Volume 78.7 fL (81-99); Mean Platelet Vol. 10.1 fl (6.2-12.0); Monocyte# 0.47 X10^3/uL; Monocyte% 7.6 % (0-10); NRBC Flagged by Analyzer 0 % (0-5); Neutrophil % 53.7 % (47-70); Platelet Count 424 K/mm3 (150-450); RBC Distribution Width CV 19.7 % (11.6-14.6); RBC Distribution Width SD 55.1 fl (35.1-43.9); Red Blood Count 4.46 M/mm3 (4.2-5.4); White Blood Count 6.2 K/mm3 (4.4-11.0)
[2020-04-04 17:06] LABS: Prothrombin Time (Protime)PT. 12.3 SECONDS (11.7-14.9)
[2020-04-04 17:11] LABS: AST(SGOT) 35 U/L (15-37); Alanine Aminotransfer ALT/SGPT 35 U/L (13-56); Albumin, Serum 3.8 g/dL (3.2-5.0); Alkaline Phosphatase 64 U/L (45-117); Anion Gap 4 (5-15); BUN 9 mg/dL (7-18); BUN/Creat Ratio 9.5 RATIO (10-20); Calcium,Total 9.1 mg/dL (8.5-10.1); Chloride 110 mmol/L (98-107); Creatinine, Serum 0.95 mg/dL (0.55-1.02); EST Glomerular Filtration Rate 70 mL/min (>60); Est Glom Filt Rate - Afr Amer 84 mL/min (>60); Estimated Creatinine Clearance 65.77 ml/min; Glucose 99 mg/dL (74-106); Potassium 4.1 mmol/L (3.5-5.1); Protein, Total 7.8 g/dL (6.4-8.2); Sodium Level 141 mmol/L (136-145)
[2020-04-04 17:24] LABS: Internal QC Validated? YES +Cl - CLEAR BKGD; Pregnancy, Serum, hCG Quali. NEGATIVE Negative
[2020-04-04 17:29] LABS: Amphetamine Urine VISTA NEGATIVE (<1000 ng/mL); Barbiturate Urine VISTA NEGATIVE (< 200 ng/mL); Benzodiazepine Urine VISTA POSITIVE (< 200 ng/mL); Cocaine Urine VISTA NEGATIVE (< 300 ng/mL); Ecstacy Urine VISTA NEGATIVE (< 500 ng/mL); Methadone Urine VISTA NEGATIVE (< 300 ng/mL); PCP Urine VISTA NEGATIVE (< 25 ng/mL); THC Urine VISTA NEGATIVE (< 50 ng/mL); Vista UDS pH Range 6
[2020-04-04] MEDS: 0.9% Normal Saline 1,000 ML 999 ML IV (17:38)
[2020-04-04 17:51] VITALS: BP 146/98; PULSE 105; RESP 17; TEMP 36.4; O2SAT 96
--- NOTE | 2020-04-04 17:52 | ED.RN ---
pt signed contract for detox admission. agrees to conditions set forth in the contract
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
--- NOTE | 2020-04-04 18:30 | CM.ED ---
Social Work Consult: Substance Abuse Informant: Dr. Matta Met with patient in room. Introduced self and social studies teacher role. Patient agreeable to speaking with this social studies teacher. Patient reports substance of choice is Alcohol and to consume too much. Patient states last drink was at 1:00pm today. Patient states history of PTSD. Patient seeking medical management of withdrawal symptoms. Patient states goal to follow up with residential placement for substance abuse completing [facility] program here at [facility]. Patient states to have a safe place to live and community supports. Active support and listening provided. Telephone call to [facility] treatment navigatorMateo. Mateo updated on patient admission and room number. Julio Cesar Grider MSW, MARIANO
[2020-04-04 18:49] VITALS: BP 133/85; PULSE 84; RESP 16; TEMP 36.7; O2SAT 98
[2020-04-04 18:52] VITALS: BMI 26.9
[2020-04-04 18:59] VITALS: BMI 27.0
[2020-04-04 19:33] LABS: Ferritin 11 ng/mL (8-252); Iron 44 ug/dL (50-170); Iron Binding Capacity,Total 418 ug/dL (250-450); Magnesium 2.1 mg/dL (1.6-2.6); PERCENT IRON SATURATION 10.5 % (15.0-55.0)
[2020-04-04] MEDS: Phenobarbital 32.4 MG Tablet PO (21:06)
[2020-04-04] MEDS: diazePAM 5 MG Tablet 10 MG PO (21:06)
[2020-04-05] VITALS (7 sets, daily range): BP systolic 112–149; BP diastolic 78–98; PULSE 75–114; RESP 16; TEMP 36.4–36.9; O2SAT 98–100
[2020-04-05] MEDS: Phenobarbital 32.4 MG Tablet PO ×6 (01:19→20:48)
[2020-04-05 05:25] LABS: Absolute Lymphocyte Count 3.08 X10^3/uL (0.83-4.51); Absolute Neutrophil Count 2.5 X10^3/uL (2.0-7.7); Basophil# 0.09 X10^3/uL; Basophil% 1.4 % (0-1); Eosinophil# 0.25 X10^3/uL; Eosinophils% 3.8 % (0-5); Hematocrit 34.9 % (37-47); Lymphocyte # 3.08 X10^3/ul (4.0); Lymphocyte % 47.4 % (19-41); Mean Corp Hgb Conc 31.5 g/dL (32-36); Mean Corpuscular Volume 79.3 fL (81-99); Mean Platelet Vol. 10.1 fl (6.2-12.0); Monocyte# 0.55 X10^3/uL; Monocyte% 8.5 % (0-10); NRBC Flagged by Analyzer 0 % (0-5); Neutrophil # 2.52 X10^3/uL (2.7-7.7); Neutrophil % 38.7 % (47-70); Platelet Count 371 K/mm3 (150-450); RBC Distribution Width CV 19.4 % (11.6-14.6); RBC Distribution Width SD 54.6 fl (35.1-43.9); White Blood Count 6.5 K/mm3 (4.4-11.0)
[2020-04-05 05:46] LABS: AST(SGOT) 30 U/L (15-37); Alanine Aminotransfer ALT/SGPT 30 U/L (13-56); Albumin, Serum 3.1 g/dL (3.2-5.0); Alkaline Phosphatase 55 U/L (45-117); Anion Gap 10 (5-15); BUN 6 mg/dL (7-18); BUN/Creat Ratio 6.4 RATIO (10-20); Calcium,Total 8.2 mg/dL (8.5-10.1); Chloride 103 mmol/L (98-107); Creatinine, Serum 0.94 mg/dL (0.55-1.02); EST Glomerular Filtration Rate 70 mL/min (>60); Est Glom Filt Rate - Afr Amer 85 mL/min (>60); Estimated Creatinine Clearance 66.47 ml/min; Globulin 3.2 g/dL (2.2-4.2); Glucose 82 mg/dL (74-106); Potassium 3.9 mmol/L (3.5-5.1); Protein, Total 6.3 g/dL (6.4-8.2); Sodium Level 137 mmol/L (136-145)
[2020-04-05] MEDS: Escitalopram Oxalate 20 MG Tablet 30 MG PO (09:08)
[2020-04-05] MEDS: diazePAM 5 MG Tablet 10 MG PO ×2 (09:08→22:09)
[2020-04-05] MEDS: Thiamine Hydrochloride 100 MG Tablet PO (09:08)
[2020-04-05] MEDS: Ondansetron 8 MG Tablet PO ×2 (09:09→20:48)
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
--- NOTE | 2020-04-05 11:38 | ADDICTION ---
This advertising writer met with patient in her room to conduct ASAM assessment and discharge planning. Patient was alert and oriented and presented with depressed mood and tearful affect. She reported no current SI or HI. She requested information regarding IOP programming in [place], [place]. This advertising writer called [facility] to schedule assessment appointment. Patient spoke with intake at [facility] and requested that they call her mother to schedule an appointment for Wednesday, April 08, 2020. Patient declined further coordination of care but did complete written discharge plan and assessments, as requested. She appears appropraite for the 4.0 level of care at this time based on history of alcohol dependency with seizures and high blood pressure during withdrawal, by her report.
[2020-04-05] MEDS: cycloBENZAPRine HCl 10 MG Tablet PO (15:44)
[2020-04-05] MEDS: Gabapentin 300 MG Capsule PO (20:48)
[2020-04-05] MEDS: Mag Hydrox/Al Hydrox/Simeth 30 ML UDC PO (22:10)
[2020-04-06] MEDS: Phenobarbital 32.4 MG Tablet PO ×6 (00:02→22:10)
[2020-04-06] MEDS: cycloBENZAPRine HCl 10 MG Tablet PO ×3 (00:02→22:17)
[2020-04-06 04:10] VITALS: BP 125/81; PULSE 68; RESP 16; TEMP 36.4; O2SAT 100
[2020-04-06] MEDS: 0.9% Saline Lock 10 ML Syringe IV (04:13)
[2020-04-06] MEDS: Gabapentin 300 MG Capsule PO (04:18)
[2020-04-06] MEDS: Mag Hydrox/Al Hydrox/Simeth 30 ML UDC PO (06:50)
[2020-04-06] MEDS: Iron Polysaccharide Complex 150 MG CAPSULE PO (08:04)
[2020-04-06] MEDS: Escitalopram Oxalate 20 MG Tablet 30 MG PO (08:05)
[2020-04-06] MEDS: Folic Acid 1 MG Tablet PO (08:05)
[2020-04-06] MEDS: diazePAM 5 MG Tablet 10 MG PO ×2 (08:12→22:16)
[2020-04-06] MEDS: Thiamine Hydrochloride 100 MG Tablet PO (08:12)
[2020-04-06] MEDS: Ibuprofen 600 MG Tablet PO ×2 (08:12→22:17)
[2020-04-06 08:32] VITALS: BP 120/78; PULSE 73; RESP 16; TEMP 36.3; O2SAT 100
[2020-04-06 11:50] VITALS: BP 97/60; PULSE 71; RESP 16; TEMP 36.3; O2SAT 99
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
[2020-04-06] MEDS: Acetaminophen 325 MG Tablet 650 MG PO (12:30)
[2020-04-06 14:26] VITALS: BP 105/68; PULSE 76; RESP 16; TEMP 36.6; O2SAT 99
[2020-04-06] MEDS: hydrOXYzine PAM 25 MG Capsule 50 MG PO (17:38)
[2020-04-06 22:14] VITALS: BP 121/78; PULSE 77; RESP 17; TEMP 36.6; O2SAT 100
[2020-04-07] MEDS: Phenobarbital 32.4 MG Tablet PO ×5 (00:57→21:32)
[2020-04-07 02:31] VITALS: BP 116/70; PULSE 78; RESP 16; TEMP 36.8; O2SAT 97
[2020-04-07] MEDS: Mag Hydrox/Al Hydrox/Simeth 30 ML UDC PO (04:29)
[2020-04-07 07:49] VITALS: BP 119/85; PULSE 58; RESP 16; TEMP 36.6; O2SAT 96
[2020-04-07] MEDS: Iron Polysaccharide Complex 150 MG CAPSULE PO (08:04)
[2020-04-07] MEDS: Thiamine Hydrochloride 100 MG Tablet PO (08:04)
[2020-04-07] MEDS: Folic Acid 1 MG Tablet PO (08:04)
[2020-04-07] MEDS: Escitalopram Oxalate 20 MG Tablet 30 MG PO (10:31)
[2020-04-07] MEDS: diazePAM 5 MG Tablet 10 MG PO ×2 (10:31→21:32)
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
[2020-04-07 14:17] VITALS: BP 117/76; PULSE 75; RESP 16; TEMP 36.6; O2SAT 100
[2020-04-07 21:38] VITALS: BP 114/67; PULSE 69; RESP 16; TEMP 36.5; O2SAT 99
[2020-04-08] MEDS: cycloBENZAPRine HCl 10 MG Tablet PO (01:22)
[2020-04-08] MEDS: Phenobarbital 32.4 MG Tablet PO ×2 (03:52→10:36)
[2020-04-08 03:59] VITALS: BP 117/77; PULSE 66; RESP 18; TEMP 36.2; O2SAT 100
[2020-04-08 08:15] VITALS: BP 104/73; PULSE 71; RESP 18; TEMP 36.3; O2SAT 100
[2020-04-08] MEDS: Thiamine Hydrochloride 100 MG Tablet PO (08:25)
[2020-04-08] MEDS: diazePAM 5 MG Tablet 10 MG PO (08:26)
[2020-04-08] MEDS: Iron Polysaccharide Complex 150 MG CAPSULE PO (08:26)
[2020-04-08] MEDS: Folic Acid 1 MG Tablet PO (08:26)
[2020-04-08] MEDS: Escitalopram Oxalate 20 MG Tablet 30 MG PO (08:26)
--- NOTE | 2020-04-08 11:12 | PCM.DC ---
- Discharge Diagnoses Current Active Problems: Current Active and Chronic Problems (This Medical Record has been edited. Action required.) Alcohol dependence (Chronic) Benzodiazepine dependence (Chronic) You will use the following diet at home:: Other - no alcohol at all Your food should be the consistency of: Regular Your liquids should be the consistency of: Regular/Thin Discharge Activity: Return to Normal Activity Allergies/Adverse Reactions: Allergies Penicillins Allergy (Verified 04/04/20 14:44) Anaphylaxis Medications to take at Discharge Escitalopram Oxalate [Lexapro] 30 mg PO DAILY 12/31/17 Prazosin HCl 5 capsule PO DAILY 08/03/18 Diazepam 10 mg PO BID 04/04/20 Iron Polysaccharide Complex [Ferrex 150] 150 mg PO DAILYCM #30 cap 04/08/20 hydrOXYzine pamoate capsule [Vistaril pamoate capsule] 50 mg PO Q4H PRN PRN #56 cap 04/08/20 The following prescriptions were given: Iron Polysaccharide Complex [Ferrex 150] 150 mg PO DAILYCM #30 cap Transmission Status: Pending to [facility] hydrOXYzine pamoate capsule [Vistaril pamoate capsule] 50 mg PO Q4H PRN PRN #56 cap PRN Reason: mild anxiety Transmission Status: Pending to [facility] Primary Care Physician: MELODY JONES [Other] Please follow up with your Primary Care Physician in: 1-2 weeks Test Results: Test results from this visit will be discussed in further detail at your follow-up appointment, if applicable. Please Follow Up With: [facility] program When: today Proposed Discharge Date: 04/08/20
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
[2020-04-08 11:50] VITALS: PULSE 71; RESP 18; TEMP 36.6; O2SAT 97
--- NOTE | 2020-04-08 11:57 | PCA ---
called the primary care left message to call patient to make an apt in 1 to 2 weeks
== END 2020-04-08 14:01 | disposition home or self-care (01) | DRG 775 ==
LOC: ED 17:38 → MS3 18:06
PROVIDERS: Admitting Provider Internal Medicine; Emergency Provider Emergency Medicine; Visit Provider Internal Medicine
DX: F10.230 Alcohol dependence with withdrawal, uncomplicated (principal); F10.229 Alcohol dependence with intoxication, unspecified; Y90.6 Blood alcohol level of 120-199 mg/100 ml; F13.230 Sedative, hypnotic or anxiolytic dependence with withdrawal, uncomplicated; F12.10 Cannabis abuse, uncomplicated; D50.9 Iron deficiency anemia, unspecified; G40.909 Epilepsy, unspecified, not intractable, without status epilepticus; K21.9 Gastro-esophageal reflux disease without esophagitis; F43.12 Post-traumatic stress disorder, chronic; F31.9 Bipolar disorder, unspecified; F17.210 Nicotine dependence, cigarettes, uncomplicated; Z79.899 Other long term (current) drug therapy
CPT/HCPCS: 36415; 80053; 80307; 80320; 82728; 83540; 83550; 83735; 84703; 85025; 85610; 97802; 99251; 99284; J7030; A4216; G0463; G0480; J2405